=== PATIENT | male | born 1945 | race Caucasian/White ===

== ENCOUNTER 2016-05-29 13:18 | Inpatient (IN) ==
[2016-05-29] MEDS ORDERED: Piperacillin/Tazobactam 3.375 GM in D5% in Water (Mini-Bag+) 100 ML IVPB ONE (13:30)
[2016-05-29] MEDS ORDERED: methylPREDNISolone 125 MG/2 ML VIAL IVP ONE (13:30)
[2016-05-29] MEDS ORDERED: Vancomycin 1,000 MG in D5% in Water 250 ML IVPB ONE (13:32)
[2016-05-29] MEDS: Ipratropium/Albuterol Neb 3 ML IH ONE ×2 (13:40→17:33)
[2016-05-29 13:47] LABS: Hematocrit 41.2 % (37.5-50.1); Hemoglobin 14.5 g/dL (12.9-16.9); Mean Corpuscular HGB Conc 35.2 g/dL (31.6-35.5); Mean Corpuscular Hemoglobin 34.1 pg (28.0-33.3); Mean Corpuscular Volume 96.9 fL (83.0-100.0); Mean Platelet Volume 9.5 fL (9.4-12.4); Platelet Count 148 K/mcL (140-400); Red Blood Count 4.25 M/mcL (4.19-5.50); Red Cell Distribution Width 13.4 % (11.5-14.5)
[2016-05-29 13:55] LABS: Prothrombin Time 11.1 Seconds (9.4-12.1)
[2016-05-29 13:58] LABS: Activated Partial Thrombo Time 23.1 Seconds (26.0-36.0); BUN/Creatinine Ratio 39 (6-26); Blood Urea Nitrogen 48 mg/dL (8-26); Calcium 8.6 mg/dL (8.6-10.8); Carbon Dioxide 28 mEq/L (19-29); Chloride 102 mEq/L (98-109); Glucose 140 mg/dL (70-99); Osmolality,Calculated 305 (280-300); Sodium 140 mEq/L (136-145); eGFR For African Americans > 60 (> 60); eGFR For Non-African Americans 59 (> 60)
[2016-05-29 14:15] LABS: Lymphocytes # 0.8 K/mcL (0.6-4.6); Monocytes # 1.2 K/mcL (0.0-1.3); Neutrophils # 17.9 K/mcL (1.6-8.9); Platelet Estimate Normal (Normal)
--- NOTE | 2016-05-29 14:36 | Emergency Department Note ---
Disposition Clinical Impression: Acute exacerbation of chronic obstructive airways disease, Respiratory decompensation, Respiratory failure Disposition: Admitted As Inpatient Condition: Critical Time of Disposition: 16:39 SOB HPI - General Chief Complaint: ED Shortness of Breath/Dyspnea Stated Complaint: SOB Time Seen by Provider: 05/29/16 13:21 Source: patient, EMS Limitations: no limitations Nursing Notes Reviewed: Yes Vital Signs Reviewed: Yes - History of Present Illness Patient presents emergency room with significant increased work of breathing shortness of breath from his primary care provider's office. Abdomen present for approximately 1 week. He was seen in the office again today after being on steroids and antibiotics. He is apparently failed outpatient treatment. They sent him over for evaluation. No other acute symptoms according to him the shortness of breath is been there for over 7 days Pt Subjective Complaint: shortness of breath Onset (ago): day(s) (7 days) Context: recent illness Severity: severe Consistency/Duration: gradually worsening Improves with: nothing Worsens with: lying flat, exertion Known history of: COPD, recurrent pneumonia Associated symptoms: Reports: cough, wheezing, sputum production Treatment prior to arrival: none Cough present: Yes Cough Description: Voluntary Cough Frequency: Intermittent Sputum production: Yes Sputum Amount: Small Sputum Color: Clear - Related Data Home oxygen amount: 2 liters Home Medications Medication Instructions Recorded Confirmed Albuterol Neb [Proventil Neb] 2.5 mg IH Q6HR 04/13/15 04/13/15 Albuterol Sulfate [Proair 90 mcg IH DAILY 04/13/15 04/13/15 Respiclick] Alendronate Sodium [Fosamax] 35 mg PO QWEEK 04/13/15 04/13/15 Aspirin [Adult Low Dose Aspirin EC] 81 mg PO DAILY 04/13/15 04/13/15 Atorvastatin [Lipitor] 40 mg PO HS 04/13/15 04/13/15 Bumetanide [Bumex] 1 mg PO DAILY 04/13/15 04/13/15 Cinnamon Bark [Cinnamon] 1,000 mg PO DAILY 04/13/15 04/13/15 Clopidogrel [Plavix] 75 mg PO DAILY 04/13/15 04/13/15 Fluticasone/Salmeterol [Advair 1 each IH BID 04/13/15 04/13/15 500-50 Diskus] Garlic 1,000 mg PO BID 04/13/15 04/13/15 Ipratropium [ATROVENT Inhaler] 2 puff IH Q6HR PRN 04/13/15 04/13/15 Loratadine [Claritin] 10 mg PO DAILY 04/13/15 04/13/15 Metoprolol [Lopressor] 50 mg PO BID 04/13/15 04/13/15 Omeprazole [PriLOSEC] 20 mg PO DAILY 04/13/15 04/13/15 Roflumilast [Daliresp] 500 mcg PO DAILY 04/13/15 04/13/15 [place] Oil/[place]-3 Fatty Acids 1 each PO BID 04/13/15 04/13/15 [Fish Oil 500 mg Softgel] Vitamin B Complex [B Complex] 1 each PO DAILY 04/13/15 04/13/15 Vitamin E (Dl,Tocopheryl Acet) 400 unit PO DAILY 04/13/15 04/13/15 [Vitamin E] Previous Rx's Medication Instructions Recorded Cefdinir [Omnicef] 300 mg PO BID #20 capsule 04/21/15 Nystatin SUSP [Mycostatin 5 ml PO QID #120 ud.liq 04/21/15 Suspension] PredniSONE 5 mg PO DAILY #90 tablet 04/21/15 Allergies Allergy/AdvReac Type Severity Reaction Status Date / Time diazoxide AdvReac Rash Verified 10/23/14 11:39 furosemide [From Lasix] AdvReac Rash Verified 10/23/14 11:39 montelukast AdvReac See Verified 10/23/14 11:39 Comments Pneumococcal Vaccine AdvReac Rash Verified 10/23/14 11:39 All systems ED: reviewed and negative except as stated. Cardiovascular: Reports: palpitations, dyspnea on exertion, orthopnea. Denies: chest pain Respiratory: Reports: cough, dyspnea, wheezes, sputum production Gastrointestinal: Denies: abdominal pain Musculoskeletal: Denies: back pain, neck pain, joint swelling Neurological: Denies: headache Past Medical History - Past Medical History Attestation: Yes The following information was validated with the patient. Source: patient Medical history: Reports: COPD, coronary artery disease, GERD, GI bleed, hyperlipidemia, hypertension, myocardial infarction, valvular heart disease Surgical history: Reports: angioplasty/stent, appendectomy, carotid endarterectomy, heart valve replacement Psychiatric history: Reports: anxiety - Social History Smoking Status: Former smoker Smokeless Tobacco Status: No Alcohol use: Reports: heavy, recent Drug use: Reports: none Physical Exam - General Limitations: no limitations General appearance: alert - Head Head exam: atraumatic, normocephalic, normal inspection - Chest Chest inspection: Present: normal inspection, symmetric chest wall rise. Absent : tenderness - Respiratory Respiratory exam: Present: respiratory distress, wheezes, accessory muscle use - Cardiovascular Cardiovascular exam: Present: tachycardia, irregular rhythm - Abdominal Exam Abdominal exam: Present: soft, Non-Tender, normal bowel sounds. Absent: tenderness, distention, guarding, rebound, rigidity, Ahmadi's sign, Rovsing's sign, tenderness at McBurney's Point, mass, pulsatile mass - Extremities Exam Extremities exam: Present: normal inspection, full ROM, normal capillary refill. Absent: tenderness - Back Exam Back exam: Present: normal inspection, full ROM. Absent: tenderness - Neurological Exam Neurological exam: Present: alert, oriented X3, CN II-XII intact - Psychiatric Psychiatric exam: Present: normal affect, normal mood - Skin Skin exam: Present: warm, dry, intact, normal color Course Course Narrative: Patient seen and examined the time of arrival. See history of present illness. Vital signs reviewed patient is persistently tachycardic dyspnea can borderline hypoxic. Patient presents from an outside facility. He has failed outpatient treatment of COPD exacerbation and pneumonia. He just completed a course of Levaquin along with steroids and breathing treatments. Patient was sent in from his primary care provider's office because of tachycardia. Patient presented here acutely short of breath with a heart rate in the 130s. Rhythm appeared to be regular. Immediate breathing treatments and steroids were ordered. Physical exam shows diffuse wheezing bilaterally in the lungs. His increased work of breathing. Heart is consistent with A. fib RVR. Is on a blood thinner from what he describes. Patient will have chest x-ray EKG labs troponin including Cardizem and oxygen applied at this point. Disposition will most likely be admission the hospital. Antibiotics to be held at this time secondary to complete intercourse. She denies any sputum production this point. He is cleared sputum with no acute signs of infectious etiology. Patient is concerning for possible decompensation secondary to his underlying medical issues. We will continue to monitor as workup is completed. - Reevaluation(s) Reevaluation #1: Patient has clear appearing lungs and chest x-ray review labs are within normal limits. Breathing has gotten better with her continuous nebulizer treatment as well as steroids. Patient was resting comfortably in the bed. No need for antibiotics at this point. He is still persistently tachycardic. Cardizem drip is being titrated up further significant role. Most of the tachycardia appears to be secondary to his pulmonary disease. We will continue to monitor admission process is completed. Time: 13:00 Reevaluation #2: Called to the bedside immediately by the nursing staff for acute respiratory distress from this patient. He had increased work of breathing her another 170s and his pulse ox dropped into the mid 80s. Oxygen was titrated upon nasal cannula and he still was not responding. He said he felt like he could not breathe and had difficulty and pain on the left side. I immediately auscultated his lungs bilateral decreased breath sounds and crackles in the left side. Ordered stat chest x-ray and transition the patient over to a nonrebreather mask. Respiratory to come to the bedside start the patient on continuous breathing treatment. Patient's oxygenation responded to the nonrebreather mask and came back up into normal range.. The treatments were started by respiratory. There was concern for possible spontaneous pneumothoraces or mucus plugging. We will see if we can resolve the symptoms without further intervention. Within approximately 10 minutes of starting the breathing treatments patient started to have significant increased work of breathing and pain. His pulse ox dropped again even with the nonrebreather and treatment planning. At that point I determined that the patient needed to be intubated. Respiratory was called to the bedside. We also placed a page out to the ICU attending. Dr. Feldman came down to the emergency room intubating the patient. He is going to do a bedside bronchoscopy once the intubation is completed. Patient's pulse ox is still waxing and waning depending on respite or status. A delayed sequence intubation was completed with 5 mg of Versed being infused initially and then 20 mg of etomidate with 50 mg of walking pneumonia used for paralytic. Intubation note dictated. No complications 1 past tube placed to 24 cm to 7.52 views. Repeat chest x-ray ordered at that time. ICU attending at the bedside and completed a bronchoscopy removing 2 large mucous plugs the left lung. He recommended keeping the patient intubated and sent him to the ICU. Repeat chest x-ray shows stable examination with no pneumothoraces. Tubes in appropriate placement. Patient will be transported to the ICU. No antibiotics were this time since this appears to be a strictly respiratory driven event. No other recommendations from the ICU attending is done in the emergency room. Bedside ultrasound was completed by Dr. broussard evaluating and confirming that there is no synovial signs of ventricle dilation. Concern at this point for pulmonary emboli after confirming the diagnosis of mucous plugging. Patient to be transported to the ICU at this time. Time: 16:37 Vital Signs Temperature 98.4 F 05/29/16 13:20 Pulse Rate 135 05/29/16 13:20 Respiratory Rate 18 05/29/16 13:20 Blood Pressure 130/105 05/29/16 13:20 O2 Sat by Pulse Oximetry 94 L 05/29/16 13:20 Temperature 98.4 F 05/29/16 13:20 Pulse Rate 140 05/29/16 16:22 Respiratory Rate 12 05/29/16 16:22 Blood Pressure 114/88 05/29/16 16:22 O2 Sat by Pulse Oximetry 98 05/29/16 16:22 Oxygen Delivery Oxygen Delivery Ambu Bag Procedures - Intubation Time out performed: No sedative: Etomidate paralytic: Rocuronium Laryngoscope: Dick ET Tube Size: 7.5 ET Tube Uncuffed: No Tube Secured Location: lips Tube Placement Confirmation: visualized tube passing through cords, equal breath sounds bilaterally, no breath sounds over epigastrium Patient Tolerated Procedure: well Intubation Complications: none Shortness of Breath/Dyspnea - MDM Narrative Medical decision making narrative: Acute respiratory distress, COPD exacerbation, mucous plugging, respiratory decompensation. - Lab Data Result diagrams: 05/29/16 13:40 05/29/16 13:40 Lab Results 05/29/16 05/29/16 05/29/16 Range/Units 13:40 13:40 13:40 WBC 19.9 H (4.3-11.1) K/mcL RBC 4.25 (4.19-5.50) M/mcL Hgb 14.5 (12.9-16.9) g/dL Hct 41.2 (37.5-50.1) % MCV 96.9 (83.0-100.0) fL MCH 34.1 H (28.0-33.3) pg MCHC 35.2 (31.6-35.5) g/dL RDW 13.4 (11.5-14.5) % Plt Count 148 (140-400) K/mcL MPV 9.5 (9.4-12.4) fL Seg Neutrophils % 90.0 % Lymphocytes % 4.0 % Monocytes % 6.0 % Neutrophils # 17.9 H (1.6-8.9) K/mcL Lymphocytes # 0.8 (0.6-4.6) K/mcL Monocytes # 1.2 (0.0-1.3) K/mcL Platelet Estimate Normal (Normal) PT 11.1 (9.4-12.1) Seconds INR 1.0 APTT 23.1 L (26.0-36.0) Seconds Sodium 140 (136-145) mEq/L Potassium 4.0 (3.5-4.5) mEq/L Chloride 102 (98-109) mEq/L Carbon Dioxide 28 (19-29) mEq/L BUN 48 H (8-26) mg/dL Creatinine 1.22 (0.72-1.25) mg/dL Est GFR ( Amer) > 60 (> 60) Est GFR (Non-Af Amer) 59 L (> 60) BUN/Creatinine Ratio 39 H (6-26) Glucose 140 H (70-99) mg/dL Calculated Osmolality 305 H (280-300) Lactic Acid (0.5-2.2) mmol/L Calcium 8.6 (8.6-10.8) mg/dL Troponin I (0-0.03) ng/mL B-Natriuretic Peptide (0-100) pg/mL 05/29/16 05/29/16 05/29/16 Range/Units 13:40 13:40 13:40 WBC (4.3-11.1) K/mcL RBC (4.19-5.50) M/mcL Hgb (12.9-16.9) g/dL Hct (37.5-50.1) % MCV (83.0-100.0) fL MCH (28.0-33.3) pg MCHC (31.6-35.5) g/dL RDW (11.5-14.5) % Plt Count (140-400) K/mcL MPV (9.4-12.4) fL Seg Neutrophils % % Lymphocytes % % Monocytes % % Neutrophils # (1.6-8.9) K/mcL Lymphocytes # (0.6-4.6) K/mcL Monocytes # (0.0-1.3) K/mcL Platelet Estimate (Normal) PT (9.4-12.1) Seconds INR APTT (26.0-36.0) Seconds Sodium (136-145) mEq/L Potassium (3.5-4.5) mEq/L Chloride (98-109) mEq/L Carbon Dioxide (19-29) mEq/L BUN (8-26) mg/dL Creatinine (0.72-1.25) mg/dL Est GFR ( Amer) (> 60) Est GFR (Non-Af Amer) (> 60) BUN/Creatinine Ratio (6-26) Glucose (70-99) mg/dL Calculated Osmolality (280-300) Lactic Acid 1.0 (0.5-2.2) mmol/L Calcium (8.6-10.8) mg/dL Troponin I 0.09 H* (0-0.03) ng/mL B-Natriuretic Peptide 886 H (0-100) pg/mL Critical Care Time Critical Care Time: Yes Total Critical Care Time: 45 Attestation: Independent of procedures and medical management Attestation Statement - Attestation Attestation: I examined this patient and my medical decision-making was reviewed with the NETWORK SUPPORT TECHNICIAN/PA/Advanced Practice Nurse/Resident Physician. I agree with the documented findings, disposition and treatment plan as described except to the extent set forth below. Patient to the emergency department with shortness of breath and cough. Patient was sent in from his primary doctor's office when he went for follow-up today. He been treated for a COPD exacerbation with Levaquin. Getting worse and he was sent here for admission. Cough was productive of green sputum but he states is now clear. No fever. On examination he is in no respiratory distress. He has decreased air exchange with expiratory wheezing. He is tachycardic. Plan. Patient's new onset A. fib. Started on Cardizem. steroids. Patient has an infiltrate. IV antibiotic. Will admit. Patient decompensated and became hypoxic. Started after a coughing spell. Becoming cyanotic. Tachypneic. Decreased air exchange on the left. Repeat x- ray unchanged. No pneumothorax. ICU called for emergent bronch. Patient intubated. 1600. ICU at bedside. Bronchoscopy being performed. Patient with large mucous plug on the left. 40 minutes of critical care exclusive of separately billable procedures.
[2016-05-29] MEDS ORDERED: *HR* LORazepam 2 MG/ML VIAL ONE (15:08)
[2016-05-29] MEDS ORDERED: Ipratropium/Albuterol Neb 3 ML IH ONE (15:11)
[2016-05-29] MEDS ORDERED: Ipratropium/Albuterol Neb 3 ML ONE (15:13)
[2016-05-29] MEDS ORDERED: *HR* LORazepam 2 MG/ML VIAL IVP ONE (15:24)
[2016-05-29] MEDS ORDERED: 0.9 % Sodium Chloride 1,000 ML ONE ×2 (15:30→15:51)
[2016-05-29] MEDS ORDERED: Propofol 500 MG/50 ML INFUS..BTL ONE (15:45)
--- NOTE | 2016-05-29 16:20 | Event Note ---
Date of Encounter: 05/29/16 Time of Encounter: 16:15 Called emergently to the ER for evaluation of sudden decompensation with refractory hypoxemia. There was concern for mucous plug. Patient was intubated by the emergency room staff. Shortly after intubation I performed flexible bronchoscopy. Informed consent was implied in the setting of emergent need for the procedure. Bronchoscope was introduced through the endotracheal tube into the airways. Right-sided airways were patent with minimal secretions. Visualization was difficult, as the patient was without positive pressure (off the ventilator). Evaluation of the left-sided airways revealed a left mainstem mucous plug. With sequential lavage and washings, was able to remove a large left sided mucous plugs. After removal of the plugs, I reinspected the airways. I did note some bloody secretions throughout bilateral airways. These secretions were suctioned. There was an area in the left mainstem with adherent clot noted. I did lavage and suction this area, but I was unable to completely remove the clot. Unable to fully visualize as to if this could be a soft tissue lesion such as a tumor. Overall though the airways appeared patent and clear of secretions. The bronchoscope was removed. The patient tolerated the procedure well.
--- NOTE | 2016-05-29 16:27 | Pulmonology History & Physical ---
Date of Encounter: 05/29/16 Time of Encounter: 16:24 Assessment and Plan (1) Respiratory failure Current visit: Yes Status: Acute Patient intubated and sedated with propofol and fentanyl at this time. Bedside bronchial emergency department showed significant mucus plugging. Lavage was performed and mucous plugs were removed. Plan: IV antibiotics of Levaquin and Rocephin. Solu-Medrol 60 mg every 6 for 24 hours. DuoNeb scheduled every 4 hours. When necessary duo nebs every 2 hours. We will continue to monitor patient. Possible repeat bronch after patient is stabilized. Qualifiers: Qualified Code(s): J96.01 - Acute respiratory failure with hypoxia (2) Community acquired pneumonia Current visit: No Status: Acute Plan : Patient on Rocephin and Levaquin. DuoNeb scheduled every 4. Solu-Medrol scheduled 60 mg every 6. (3) COPD exacerbation Current visit: No Status: Acute Plan as above. (4) DVT prophylaxis Current visit: No Status: Acute Heparin twice a day. History of Present Illness HPI: Mr. White is a 71 year old male who presented to the emergency department with shortness of breath over the past couple days. He was on outpatient Omnicef. He does have history of COPD. During his ED course his oxygen saturation decreased and patient began having significant shortness of breath. A bedside broncholiths performed and patient was found to have significant mucus plugging. This was suctioned. Patient is intubated and on a ventilator at this time. Past Med Surg Social Fam HX - Past Medical History Medical history: COPD, coronary artery disease, GERD, GI bleed, hyperlipidemia, hypertension, myocardial infarction, valvular heart disease Psychiatric history: anxiety - Past Surgical History Surgical History: angioplasty/stent, appendectomy, carotid endarterectomy, heart valve replacement - Social History Smoking Status: Former smoker Smokeless Tobacco Status: No Alcohol use: heavy, recent Drug use: none - Family History Mother Family Member Ethnicity: Non- Living Status: Hx Family Cardiac Disorders: No Hx Family Respiratory Disorders: No Hx Family Cancer: Yes Hx Family GI Disorders: No Hx Family Endocrine Disorder: No Hx Family Neuromuscular Disorders: No Hx Family Neurologic Disorders: No Hx Family HEENT Disorders: No Hx Family Autoimmune Disorders: No Medications and Allergies Albuterol Neb [Proventil Neb] 2.5 mg IH Q6HR 04/13/15 [History] Albuterol Sulfate [Proair Respiclick] 90 mcg IH DAILY 04/13/15 [History] Alendronate Sodium [Fosamax] 35 mg PO QWEEK 04/13/15 [History] Aspirin [Adult Low Dose Aspirin EC] 81 mg PO DAILY 04/13/15 [History] Atorvastatin [Lipitor] 40 mg PO HS 04/13/15 [History] Bumetanide [Bumex] 1 mg PO DAILY 04/13/15 [History] Cinnamon Bark [Cinnamon] 1,000 mg PO DAILY 04/13/15 [History] Clopidogrel [Plavix] 75 mg PO DAILY 04/13/15 [History] Fluticasone/Salmeterol [Advair 500-50 Diskus] 1 each IH BID 04/13/15 [History] Garlic 1,000 mg PO BID 04/13/15 [History] Ipratropium [ATROVENT Inhaler] 2 puff IH Q6HR PRN 04/13/15 [History] Loratadine [Claritin] 10 mg PO DAILY 04/13/15 [History] Metoprolol [Lopressor] 50 mg PO BID 04/13/15 [History] Omeprazole [PriLOSEC] 20 mg PO DAILY 04/13/15 [History] Roflumilast [Daliresp] 500 mcg PO DAILY 04/13/15 [History] [place] Oil/[place]-3 Fatty Acids [Fish Oil 500 mg Softgel] 1 each PO BID 04/13/15 [History] Vitamin B Complex [B Complex] 1 each PO DAILY 04/13/15 [History] Vitamin E (Dl,Tocopheryl Acet) [Vitamin E] 400 unit PO DAILY 04/13/15 [History] Cefdinir [Omnicef] 300 mg PO BID #20 capsule 04/21/15 [Rx] Nystatin SUSP [Mycostatin Suspension] 5 ml PO QID #120 ud.liq 04/21/15 [Rx] PredniSONE 5 mg PO DAILY #90 tablet 04/21/15 [Rx] Allergies diazoxide Adverse Reaction (Verified 10/23/14 11:39) Rash furosemide [From Lasix] Adverse Reaction (Verified 10/23/14 11:39) Rash montelukast Adverse Reaction (Verified 10/23/14 11:39) See Comments Pneumococcal Vaccine Adverse Reaction (Verified 10/23/14 11:39) Rash ROS unobtainable: due to endotracheal tube All Systems: A 10-system review of systems was performed and is negative for pertinent findings except as documented above in the HPI. Physical Examination Vital Signs: Vital Signs, Last 4 Hours Pulse Resp BP Pulse Ox 05/29/16 16:22 140 12 114/88 98 General appearance: other (Intubated and sedated.) Eyes: nonicteric ENT: oropharynx moist Neck: supple Effort: other (Assisted) Inspection: normal Auscultation: bilateral: rhonchi Cardiovascular: other (Atrial fibrillation with RVR.) Gastrointestinal: normoactive bowel sounds, soft, non-distended Integumentary: normal Extremities: no cyanosis, pink and warm, pulses normal Musculoskeletal: no deformities unable to assess due to mental status (Patient sedated.) Results - Laboratory Findings CBC and BMP: 05/29/16 13:40 05/29/16 13:40 PT/INR, D-dimer PT 11.1 Seconds (9.4-12.1) 05/29/16 13:40 Abnormal lab findings: Abnormal lab results WBC 19.9 K/mcL (4.3-11.1) H 05/29/16 13:40 MCH 34.1 pg (28.0-33.3) H 05/29/16 13:40 Neutrophils # 17.9 K/mcL (1.6-8.9) H 05/29/16 13:40 APTT 23.1 Seconds (26.0-36.0) L 05/29/16 13:40 BUN 48 mg/dL (8-26) H 05/29/16 13:40 Est GFR (Non-Af Amer) 59 (> 60) L 05/29/16 13:40 BUN/Creatinine Ratio 39 (6-26) H 05/29/16 13:40 Glucose 140 mg/dL (70-99) H 05/29/16 13:40 Calculated Osmolality 305 (280-300) H 05/29/16 13:40 Troponin I 0.09 ng/mL (0-0.03) H* 05/29/16 13:40 B-Natriuretic Peptide 886 pg/mL (0-100) H 05/29/16 13:40
[2016-05-29] MEDS ORDERED: Lacri-Lube 3.5 GM TUBE BOTH EYES PRN (16:32)
[2016-05-29] MEDS ORDERED: Ipratropium/Albuterol Neb 3 ML IH PRN (16:42)
[2016-05-29] MEDS: FentaNYL (PF) 1,000 MCG in 0.9 % Sodium Chloride 80 ML IVC SCH (17:33)
[2016-05-29 17:39] LABS: ABG Base Excess 1.4 mEq/L (-2.0 to 3.0); ABG HCO3 29.3 mEQ/L (21-27); ABG Oxygen Saturation 99 % (95-98); ABG PCO2 61 mmHg (35-45); ABG PH 7.29 pH Units (7.32-7.45); ABG PO2 162 mmHg (85-104); ABG TCO2 31.2 mEq/L (20-26)
[2016-05-29 17:40] LABS: Blood Gas FiO2 50 %
[2016-05-29] MEDS ORDERED: Levofloxacin 750 MG/150 ML 750 MG/150 ML BAG IVPB SCH (18:00)
[2016-05-29] MEDS ORDERED: D5% in Water 1,000 ML IV PRN (18:02)
[2016-05-29] MEDS ORDERED: Dextrose Gel 15 GM PO PRN ×2 (18:02)
[2016-05-29] MEDS ORDERED: *HR* Dextrose 50 % in Water (Syg) 50 ML SYRINGE IVP PRN (18:02)
[2016-05-29] MEDS: methylPREDNISolone 125 MG/2 ML VIAL IVP SCH (18:08)
[2016-05-29] MEDS: *HR* Heparin 5,000 UNIT/ML VIAL SQ SCH (18:10)
[2016-05-29] MEDS ORDERED: Phenylephrine 10 MG in D5% in Water 250 ML IVC SCH (18:45)
[2016-05-29] MEDS: Ipratropium/Albuterol Neb 3 ML IH SCH (20:19)
[2016-05-29] MEDS: Lacri-Lube 3.5 GM TUBE BOTH EYES SCH (20:56)
[2016-05-29] MEDS: Chlorhexidine Rinse 15 ML MOUTHWASH MM SCH (20:56)
[2016-05-29] MEDS ORDERED: *HR* Metoprolol 5 MG/5 ML VIAL IVP PRN (22:26)
[2016-05-30] MEDS: FentaNYL (PF) 1,000 MCG in 0.9 % Sodium Chloride 80 ML IVC SCH (00:04)
[2016-05-30] MEDS: methylPREDNISolone 125 MG/2 ML VIAL IVP SCH ×4 (00:15→17:42)
[2016-05-30] MEDS: Insulin LISPRO 300 UNITS/3 ML VIAL SQ SCH ×4 (00:15→19:37)
[2016-05-30] MEDS: Lacri-Lube 3.5 GM TUBE BOTH EYES SCH ×3 (00:15→09:11)
[2016-05-30] MEDS: Ipratropium/Albuterol Neb 3 ML IH SCH ×6 (00:23→20:49)
[2016-05-30 03:25] LABS: Basophils # 0.1 K/mcL (0.0-0.2); Basophils % 0.3 %; Hematocrit 38.6 % (37.5-50.1); Immature Granulocytes % 4.2 % (0-4); Lymphocytes # 0.4 K/mcL (0.6-4.6); Lymphocytes % 2.3 %; Mean Corpuscular HGB Conc 33.7 g/dL (31.6-35.5); Mean Corpuscular Hemoglobin 33.5 pg (28.0-33.3); Mean Corpuscular Volume 99.5 fL (83.0-100.0); Mean Platelet Volume 9.9 fL (9.4-12.4); Monocytes # 0.8 K/mcL (0.0-1.3); Monocytes % 4.2 %; Neutrophils # 16.3 K/mcL (1.6-8.9); Platelet Count 131 K/mcL (140-400); Red Blood Count 3.88 M/mcL (4.19-5.50); Red Cell Distribution Width 13.7 % (11.5-14.5)
[2016-05-30 03:42] LABS: Calcium 7.4 mg/dL (8.6-10.8); Potassium 4.1 mEq/L (3.5-4.5)
[2016-05-30] MEDS: Famotidine 20 MG/2 ML VIAL IVP SCH (05:11)
[2016-05-30] MEDS: *HR* Heparin 5,000 UNIT/ML VIAL SQ SCH ×2 (05:15→17:42)
[2016-05-30] MEDS ORDERED: *HR* Midazolam HCl 2 MG/2 ML VIAL IV ONE (07:49)
[2016-05-30] MEDS ORDERED: *HR* Rocuronium Bromide 50 MG/5 ML VIAL IVC ONE (07:49)
[2016-05-30] MEDS ORDERED: *HR* Etomidate 40 MG/20 ML VIAL IVP ONE (07:49)
[2016-05-30] MEDS ORDERED: *HR* Midazolam HCl 5 MG/5 ML VIAL IVP ONE (07:49)
[2016-05-30] MEDS: Aspirin Enteric Coated 81 MG Tablet PO SCH ×2 (09:11→14:09)
[2016-05-30] MEDS: Chlorhexidine Rinse 15 ML MOUTHWASH MM SCH (09:55)
[2016-05-30 10:06] LABS: 2009 H1N1 PCR NOT DETECTED (Not Detect); Influenza A PCR Negative (Negative); Influenza B PCR Negative (Negative)
--- NOTE | 2016-05-30 10:13 | Pulmonology Progress Note ---
Date of Encounter: 05/30/16 Time of Encounter: 10:11 Assessment and Plan (1) Acute respiratory failure with hypoxia Current Visit: Yes Status: Acute Multifactorial and due to COPD with acute exacerbation and left-sided mucous plugging. Patient's chest x-ray appears clear this morning without mucous plugging. He is passing a spontaneous breathing trial. Plan for extubation. (2) COPD with acute exacerbation Current Visit: Yes Status: Acute Continue intravenous steroids and scheduled + prn bronchodilators. Will transition to prednisone 40 mg by mouth daily with 2 week taper on 05/31/2016. (3) Atelectasis Current Visit: Yes Status: Acute Emergent bronchoscopy performed in the emergency department 05/29/2016, which revealed left-sided mucous plugging. The plugs were removed. The underlying mucosa revealed oozing blood and adherent clot. It was difficult to rule out an endobronchial lesion due to poor visualization. We continued to suction blood from the endotracheal tube overnight. No mucous plugging noted on an x- ray 05/30/2016. Ultimately, I will plan on CT scan of the chest for further evaluation. Otherwise, the patient may need a repeat bronchoscopy in the future for airway inspection after he stabilizes. (4) Atrial fibrillation with RVR Current Visit: Yes Status: Acute He developed atrial fibrillation with rapid ventricular response in the emergency department. After extubation, we can further discuss with the patient appears ever had a history of A. fib. He is currently on a diltiazem drip for rate control. We have added back his by mouth metoprolol to assist with rate control and in an attempt to wean off the diltiazem drip. Holding anticoagulation in light of bloody secretions suctioning out of endotracheal tube. Continue aspirin. (5) History of tobacco use Current Visit: Yes Status: Acute Subjective Principal diagnosis: Acute respiratory failure Interval history: No acute overnight events. They did continue to suction blood out of the endotracheal tube overnight. Patient has done well on a spontaneous breathing trial this morning. Unable to obtain review of systems secondary to endotracheal tube. Objective PUL Vital signs: Last Vital Signs Temp 97.8 F 05/30/16 08:08 Pulse 122 05/30/16 08:30 Resp 14 05/30/16 09:43 BP 143/105 05/30/16 08:09 Pulse Ox 97 05/30/16 09:43 General: Frail appearing, intubated but awake and interactive Eyes: nonicteric ENT: #7.[address] Neck: supple, no lymphadenopathy Lungs: Coarse bilateral breath sounds Cardiovascular: Irregularly irregular, no murmurs noted Gastrointestinal: normoactive bowel sounds, soft, non-tender, non-distended Integumentary: normal Extremities: no cyanosis, no edema Musculoskeletal: no deformities Neuro: Interactive with caregivers, follows commands, moves extremities 4 Psych: Deferred exam Ventilator Settings Ventilator Settings: Ventilator Settings, Last 8 Hours Ventilator Mode CPAP Ventilator Mode CPAP Ventilator Mode CPAP Ventilator Mode CPAP Ventilator Mode VC+ Ventilator Mode VC+ Ventilator Mode VC+ Ventilator Mode VC+ Ventilator Mode VC+ Ventilator Tidal Volume 550 Setting Ventilator Tidal Volume 550 Setting Ventilator Tidal Volume 550 Setting Ventilator Tidal Volume 550 Setting Ventilator Tidal Volume 550 Setting Ventilator Respiratory Rate 13 Setting Ventilator Respiratory Rate 13 Setting Ventilator Respiratory Rate 14 Setting Ventilator Respiratory Rate 14 Setting Ventilator Respiratory Rate 14 Setting Ventilator Respiratory Rate 14 Setting Ventilator Respiratory Rate 14 Setting Actual Respiratory Rate 15 Actual Respiratory Rate 15 Actual Respiratory Rate 15 Actual Respiratory Rate 14 Actual Respiratory Rate 14 Actual Respiratory Rate 15 Actual Respiratory Rate 16 Actual Respiratory Rate 16 Positive End Expiratory 5 Pressure Positive End Expiratory 5 Pressure Positive End Expiratory 5 Pressure Positive End Expiratory 5 Pressure Positive End Expiratory 5 Pressure Positive End Expiratory 5 Pressure Positive End Expiratory 5 Pressure Positive End Expiratory 5 Pressure Positive End Expiratory 5 Pressure Peak Inspiratory Airway 11 Pressure Peak Inspiratory Airway 11 Pressure Peak Inspiratory Airway 16 Pressure Peak Inspiratory Airway 16 Pressure Peak Inspiratory Airway 24 Pressure Peak Inspiratory Airway 27 Pressure Peak Inspiratory Airway 26 Pressure Peak Inspiratory Airway 21 Pressure Peak Inspiratory Airway 21 Pressure Results - Laboratory Findings CBC and BMP: 05/30/16 03:00 05/30/16 03:00 ABG ABG pH 7.29 pH Units (7.32-7.45) L 05/29/16 17:30 ABG pCO2 61 mmHg (35-45) H 05/29/16 17:30 ABG pO2 162 mmHg (85-104) H 05/29/16 17:30 ABG O2 Saturation 99 % (95-98) H 05/29/16 17:30 PT/INR, D-dimer PT 11.1 Seconds (9.4-12.1) 05/29/16 13:40 Abnormal lab findings: Abnormal lab results WBC 18.3 K/mcL (4.3-11.1) H 05/30/16 03:00 RBC 3.88 M/mcL (4.19-5.50) L 05/30/16 03:00 MCH 33.5 pg (28.0-33.3) H 05/30/16 03:00 Plt Count 131 K/mcL (140-400) L 05/30/16 03:00 Immature Gran % 4.2 % (0-4) H 05/30/16 03:00 Neutrophils # 16.3 K/mcL (1.6-8.9) H 05/30/16 03:00 Lymphocytes # 0.4 K/mcL (0.6-4.6) L 05/30/16 03:00 APTT 23.1 Seconds (26.0-36.0) L 05/29/16 13:40 ABG pH 7.29 pH Units (7.32-7.45) L 05/29/16 17:30 ABG pCO2 61 mmHg (35-45) H 05/29/16 17:30 ABG pO2 162 mmHg (85-104) H 05/29/16 17:30 ABG HCO3 29.3 mEQ/L (21-27) H 05/29/16 17:30 ABG Total CO2 31.2 mEq/L (20-26) H 05/29/16 17:30 ABG O2 Saturation 99 % (95-98) H 05/29/16 17:30 BUN 62 mg/dL (8-26) H D 05/30/16 03:00 Creatinine 1.82 mg/dL (0.72-1.25) H 05/30/16 03:00 Est GFR ( Amer) 45 (> 60) L 05/30/16 03:00 Est GFR (Non-Af Amer) 37 (> 60) L 05/30/16 03:00 BUN/Creatinine Ratio 34 (6-26) H 05/30/16 03:00 Glucose 143 mg/dL (70-99) H 05/30/16 03:00 POC Glucose 166 (58-89) H 05/30/16 00:08 Calculated Osmolality 310 (280-300) H 05/30/16 03:00 Calcium 7.4 mg/dL (8.6-10.8) L 05/30/16 03:00 Troponin I 0.17 ng/mL (0-0.03) H* 05/30/16 08:30 B-Natriuretic Peptide 886 pg/mL (0-100) H 05/29/16 13:40 - Microbiology Findings Microbiology Findings: Microbiology, Last 48 Hours 05/29/16 18:20 Legionella Antigen - Final Urine,[place] Streptococcus pneumoniae Antigen (M - Final - Clinical Findings Intake & Output: Intake & Output 05/29/16 05/30/16 05/30/16 23:59 07:59 15:59 Intake Total 204 / 206 221 / 221 0 / 0 Output Total 200 / 200 Balance 204 / 206 221 / 221 -200 / -200 Consult Discharge Plan - Plan Referrals: Saud Potter MD [Primary Care Provider] -
[2016-05-31] MEDS: Insulin LISPRO 300 UNITS/3 ML VIAL SQ SCH ×4 (00:12→21:04)
[2016-05-31 04:06] LABS: Basophils % 0.2 %; Hematocrit 36.8 % (37.5-50.1); Hemoglobin 12.6 g/dL (12.9-16.9); Immature Granulocytes % 3.3 % (0-4); Lymphocytes # 0.4 K/mcL (0.6-4.6); Mean Corpuscular HGB Conc 34.2 g/dL (31.6-35.5); Mean Corpuscular Hemoglobin 34.1 pg (28.0-33.3); Mean Corpuscular Volume 99.5 fL (83.0-100.0); Mean Platelet Volume 9.9 fL (9.4-12.4); Monocytes % 5.2 %; Neutrophils # 16.7 K/mcL (1.6-8.9); Platelet Count 117 K/mcL (140-400); Red Cell Distribution Width 13.2 % (11.5-14.5); Segmented Neutrophils % 89.3 %
[2016-05-31 04:19] LABS: Calcium 6.8 mg/dL (8.6-10.8); Potassium 4.4 mEq/L (3.5-4.5)
[2016-05-31] MEDS: Famotidine 20 MG/2 ML VIAL IVP SCH (05:56)
[2016-05-31] MEDS: *HR* Heparin 5,000 UNIT/ML VIAL SQ SCH ×2 (05:56→19:41)
[2016-05-31] MEDS: Ipratropium/Albuterol Neb 3 ML IH SCH ×4 (08:17→20:31)
[2016-05-31] MEDS: Aspirin Enteric Coated 81 MG Tablet PO SCH (08:39)
[2016-05-31] MEDS ORDERED: predniSONE 20 MG TABLET PO SCH (09:00)
--- NOTE | 2016-05-31 09:57 | Pulmonology Progress Note ---
Date of Encounter: 05/31/16 Time of Encounter: 09:55 Assessment and Plan (1) Acute respiratory failure with hypoxia Current Visit: Yes Status: Acute Multifactorial and due to COPD with acute exacerbation and left-sided mucous plugging. He was intubated on 05/29/2016, and he was subsequently extubated . Respiratory status appears stable on oxygen via nasal cannula. (2) COPD with acute exacerbation Current Visit: Yes Status: Acute Continue steroids and scheduled + prn bronchodilators. Patient transitioned to prednisone 40 mg by mouth daily with 2 week taper on 05/31/2016. (3) Atelectasis Current Visit: Yes Status: Acute Emergent bronchoscopy performed in the emergency department 05/29/2016, which revealed left-sided mucous plugging. The plugs were removed. The underlying mucosa revealed oozing blood and adherent clot. It was difficult to rule out an endobronchial lesion due to poor visualization. Ultimately, I recommend a CT scan of the chest for further evaluation. Otherwise, the patient may need a repeat bronchoscopy in the future for airway inspection after he stabilizes. (4) Atrial fibrillation with RVR Current Visit: Yes Status: Acute He developed atrial fibrillation with rapid ventricular response in the emergency department. He reports a history of difficult to control A. fib. He has intermittently required a diltiazem drip for rate control. We have added back his by mouth metoprolol to assist with rate control and in an attempt to wean off the diltiazem drip. Holding anticoagulation in light of bloody secretions suctioning and ongoing hemoptysis. (5) History of tobacco use Current Visit: Yes Status: Acute Okay to transfer out of ICU setting Subjective Principal diagnosis: Acute respiratory failure Interval history: No acute overnight events. The patient was extubated 05/30/2016. He does report coughing up some blood this morning. The blood was old and dark and did not look fresh. No fever/chills. He states his dyspnea significantly improved compared to his presentation in the emergency room. All other systems reviewed and otherwise negative. Objective PUL Vital signs: Last Vital Signs Temp 97.6 F 05/31/16 09:23 Pulse 128 05/31/16 08:30 Resp 25 05/31/16 08:30 BP 126/85 05/31/16 08:30 Pulse Ox 98 05/31/16 08:30 General: no acute distress Eyes: nonicteric ENT: oropharynx moist Neck: supple, no lymphadenopathy Lungs: Bilateral expiratory wheezes noted Cardiovascular: regular rate and rhythm Gastrointestinal: normoactive bowel sounds, soft, non-tender, non-distended Integumentary: normal Extremities: no cyanosis, no edema Musculoskeletal: no deformities Neuro: normal mental status, non-focal exam Psych: mood appropriate, affect normal Results - Laboratory Findings CBC and BMP: 05/31/16 03:50 05/31/16 03:50 ABG ABG pH TNP 05/31/16 03:59 ABG pCO2 TNP 05/31/16 03:59 ABG pO2 TNP 05/31/16 03:59 ABG O2 Saturation TNP 05/31/16 03:59 PT/INR, D-dimer PT 11.1 Seconds (9.4-12.1) 05/29/16 13:40 Abnormal lab findings: Abnormal lab results WBC 18.7 K/mcL (4.3-11.1) H 05/31/16 03:50 RBC 3.70 M/mcL (4.19-5.50) L 05/31/16 03:50 Hgb 12.6 g/dL (12.9-16.9) L 05/31/16 03:50 Hct 36.8 % (37.5-50.1) L 05/31/16 03:50 MCH 34.1 pg (28.0-33.3) H 05/31/16 03:50 Plt Count 117 K/mcL (140-400) L 05/31/16 03:50 Neutrophils # 16.7 K/mcL (1.6-8.9) H 05/31/16 03:50 Lymphocytes # 0.4 K/mcL (0.6-4.6) L 05/31/16 03:50 APTT 23.1 Seconds (26.0-36.0) L 05/29/16 13:40 BUN 69 mg/dL (8-26) H 05/31/16 03:50 Creatinine 1.55 mg/dL (0.72-1.25) H 05/31/16 03:50 Est GFR ( Amer) 54 (> 60) L 05/31/16 03:50 Est GFR (Non-Af Amer) 44 (> 60) L 05/31/16 03:50 BUN/Creatinine Ratio 45 (6-26) H 05/31/16 03:50 Glucose 58 mg/dL (70-99) L 05/31/16 03:50 POC Glucose 263 (58-89) H 05/31/16 00:09 Calculated Osmolality 306 (280-300) H 05/31/16 03:50 Calcium 6.8 mg/dL (8.6-10.8) L 05/31/16 03:50 Troponin I 0.17 ng/mL (0-0.03) H* 05/30/16 08:30 B-Natriuretic Peptide 886 pg/mL (0-100) H 05/29/16 13:40 - Clinical Findings Intake & Output: Intake & Output 05/30/16 05/31/16 05/31/16 23:59 07:59 15:59 Intake Total 100 / 130 720 / 720 Output Total 250 / 250 850 / 850 300 / 300 Balance -150 / -120 -130 / -130 -300 / -300 Consult Discharge Plan - Plan Referrals: Saud Potter MD [Primary Care Provider] -
[2016-05-31] MEDS ORDERED: *HR* Metoprolol 5 MG/5 ML VIAL IVP PRN (10:15)
--- NOTE | 2016-05-31 12:32 | Electrocardiograph Report ---
[place] [id number] Test Date: 2016-05-29 Pat Name: Izaiah White Department: 104 Room: [facility] Gender: M Lean Sensei: : 1945 Requested By: Roseanna See Order Number: [id number] Reading MD: Sudha Benton Measurements Intervals [place] Rate: 131 P: SC: 0 QRS: 42 QRSD: 94 T: 91 QT: 295 QTc: 372 Interpretive Statements ATRIAL FIBRILLATION WITH RAPID VENTRICULAR RESPONSE VOLTAGE CRITERIA FOR LVH NONSPECIFIC ST \T\ T-WAVE ABNORMALITY Electronically Signed On 05-31-2016 12:30:31 EDT by Sudha Benton
[2016-05-31] MEDS ORDERED: Dextrose Gel 15 GM PO PRN ×2 (17:59)
[2016-05-31] MEDS ORDERED: D5% in Water 1,000 ML IV PRN (17:59)
[2016-05-31] MEDS ORDERED: *HR* Dextrose 50 % in Water (Syg) 50 ML SYRINGE IVP PRN (17:59)
[2016-05-31] MEDS ORDERED: *HR* Metoprolol 5 MG/5 ML VIAL IVP ONE (19:21)
[2016-05-31] MEDS: Levofloxacin 750 MG/150 ML 750 MG/150 ML BAG IVPB SCH (19:40)
[2016-05-31 19:55] LABS: Calcium 7.4 mg/dL (8.6-10.8); Potassium 3.9 mEq/L (3.5-4.5)
[2016-06-01] MEDS: Ipratropium/Albuterol Neb 3 ML IH SCH ×6 (00:26→20:10)
[2016-06-01] MEDS: Insulin LISPRO 300 UNITS/3 ML VIAL SQ SCH ×5 (05:35→21:20)
[2016-06-01] MEDS: *HR* Heparin 5,000 UNIT/ML VIAL SQ SCH ×2 (05:35→21:25)
[2016-06-01] MEDS ORDERED: predniSONE 20 MG TABLET PO SCH (09:00)
[2016-06-01] MEDS: *HR* Metoprolol 5 MG/5 ML VIAL IVP PRN (09:08)
--- NOTE | 2016-06-01 09:32 | Internal Med Progress Note ---
Date of Encounter: 06/01/16 Time of Encounter: 09:30 - Assessment and plan (1) Acute on chronic respiratory failure with hypoxia Current Visit: No Status: Resolved Assessment and plan: Acute on chronic respiratory failure secondary to acute COPD exacerbation from possible acute bronchitis viral versus bacterial, possible community-acquired pneumonia as his chest x-ray shows a right pleural effusion/opacity The patient had a bronchoscopy that showed mucus plugging Stop prednisone and restart Solu-Medrol IV Rocephin was discontinued in the ICU and the patient was started on Levaquin day 2 Continue oxygen therapy (2) Atrial fibrillation with RVR Current Visit: Yes Status: Acute Assessment and plan: Atrial fibrillation with RVR Continue metoprolol, patient's Cardizem drip was discontinued in the emergency room May need to be restarted if heart rate not properly controlled Consider consulting cardiology if heart rate is still elevated after controlling his COPD properly (3) Acute kidney injury Current Visit: No Status: Resolved Assessment and plan: Improving Restart Bumex (4) Elevated troponin Current Visit: No Status: Acute Assessment and plan: Likely secondary to demand ischemia (5) COPD exacerbation Current Visit: No Status: Acute (6) History of aortic valve replacement with bioprosthetic valve Current Visit: No Status: Chronic (7) Hypertension Current Visit: No Status: Chronic Assessment and plan: Stable Qualifiers: Hypertension type: essential hypertension Qualified Code(s): I10 - Essential (primary) hypertension (8) History of tobacco use Current Visit: Yes Status: Acute Assessment and plan: Quit smoking - Time Spent With Patient Greater than 35 minutes - Subjective Interval history: Feeling very short of breath, heart rate ranging from the low 100s to up to 140s and 160s at times, bringing up phlegm still. Denies any chest pain, no fevers, no abdominal pain, no dysuria. - Constitutional Vitals: Temp Pulse Resp BP Pulse Ox 97.1 F L 138 18 137/98 98 06/01/16 07:55 06/01/16 07:55 06/01/16 07:55 06/01/16 07:55 06/01/16 07:55 General appearance: Present: A&O X 3 - Head Head exam: Present: atraumatic, normocephalic - Eye Eye exam: Present: PERRL, conjuntiva pink, sclera anicteric Pupils: Present: PERRL - Neck Neck exam general surgery: Present: supple, trachea midline. Absent: lymphadenopathy - Respiratory Respiratory exam: Present: CTAB, wheezes (Diffuse crackles and wheezing). Absent: accessory muscle use, rales, rhonchi - Cardiovascular Cardiovascular exam: Present: RRR, +S1, +S2, tachycardia. Absent: diastolic murmur, gallop, rubs, systolic murmur - GI/Abdominal GI/Abdominal exam: Present: normal bowel sounds, soft, no peritoneal signs. Absent: distended, tenderness - Extremities Exam Extremities exam: Present: pedal edema (+ 1 pitting edema in both lower extremities), warm, radial pulses palpable and symetrical. Absent: calf tenderness, cyanotic - Neurological Exam Neurological exam: Present: CN II-XII intact, oriented X3, no focal deficits. Absent: pronater drift, facial droop, speech deficit - Skin Skin exam: Present: dry, intact Internal Medicine: Result - Labs CBC & Chem 7: 05/31/16 03:50 05/31/16 19:33 Labs: BMP 05/31/16 19:33 Sodium 140 Potassium 3.9 Chloride 103 Carbon Dioxide 25 BUN 74 H Creatinine 1.48 H Glucose 143 H Calcium 7.4 L - ABG Interpretation ABG results: ABG ABG pH TNP 05/31/16 03:59 ABG pCO2 TNP 05/31/16 03:59 ABG pO2 TNP 05/31/16 03:59 ABG O2 Saturation TNP 05/31/16 03:59 PT/INR, D-dimer PT 11.1 Seconds (9.4-12.1) 05/29/16 13:40 Consult Discharge Plan - Plan Referrals: Saud Potter MD [Primary Care Provider] -
[2016-06-01] MEDS: Aspirin Enteric Coated 81 MG Tablet PO SCH (10:06)
[2016-06-01] MEDS: methylPREDNISolone 125 MG/2 ML VIAL IV SCH ×2 (10:14→17:14)
[2016-06-01] MEDS: Bumetanide 1 MG TABLET PO SCH ×2 (10:14→21:20)
[2016-06-01] MEDS: Ipratropium/Albuterol Neb 3 ML IH PRN (17:18)
[2016-06-01] MEDS: Chloraseptic Spray 177 ML BOTTLE MM PRN (18:13)
[2016-06-02] MEDS: Ipratropium/Albuterol Neb 3 ML IH SCH ×7 (00:29→23:17)
[2016-06-02] MEDS: methylPREDNISolone 125 MG/2 ML VIAL IV SCH ×4 (00:39→23:46)
[2016-06-02] MEDS: Chloraseptic Spray 177 ML BOTTLE MM PRN ×4 (00:46→23:47)
[2016-06-02 05:58] LABS: Hematocrit 43.1 % (37.5-50.1); Hemoglobin 14.3 g/dL (12.9-16.9); Mean Corpuscular HGB Conc 33.2 g/dL (31.6-35.5); Mean Corpuscular Hemoglobin 33.2 pg (28.0-33.3); Mean Platelet Volume 9.8 fL (9.4-12.4); Platelet Count 140 K/mcL (140-400); Red Blood Count 4.31 M/mcL (4.19-5.50); Red Cell Distribution Width 13.2 % (11.5-14.5)
[2016-06-02] MEDS: *HR* Metoprolol 5 MG/5 ML VIAL IVP PRN ×2 (06:03→09:12)
[2016-06-02] MEDS: *HR* Heparin 5,000 UNIT/ML VIAL SQ SCH ×2 (06:04→18:29)
[2016-06-02 06:17] LABS: Calcium 7.5 mg/dL (8.6-10.8)
[2016-06-02 06:36] LABS: Potassium 4.8 mEq/L (3.5-4.5)
[2016-06-02] MEDS: Bumetanide 1 MG TABLET PO SCH ×2 (09:08→19:53)
[2016-06-02] MEDS: Aspirin Enteric Coated 81 MG Tablet PO SCH (09:09)
[2016-06-02] MEDS: Insulin LISPRO 300 UNITS/3 ML VIAL SQ SCH ×4 (09:10→21:40)
--- NOTE | 2016-06-02 09:57 | ECHO - Doppler Report ---
Echocardiogram Name: Izaiah White Date of Study: 06/01/2016 Date: 1945 Ht: 66.0 in Medical Record#: [id number] Age: 71 Wt: 215.0 lb Gender: Male BSA: 2.06 Order #: [id number] Location: [facility] Room #: [id number] Reading Physician: Sudha Benton DO End User Consultant: Elisha Luque Ordering Physician: Conner Woody MD Primary Physician: Saud Potter MD Indications: Congestive heart failure Impressions: Moderately reduced LVEF that could not be well quantified secondary to tachycardia (AFIB with RVR). RV size is normal. Function could not be well evaluated. Severely enlarged left atrial size. Aortic prosthesis was not well visualized or evaluated. MG ranges from 13 to 20 mmHg while tachycardic. Degree of regurgitation could also not be well visualized. Left Ventricular Wall Motion: Rest Echo Findings The apex, apical inferior, mid inferior, basal inferior, apical anterior, mid anterior, basal anterior, apical lateral, mid anterior lateral, basal anterior lateral, mid inferior lateral and basal inferior lateral polo were hypokinetic. The apical septal, mid inferior septal, basal inferior septal, mid anterior septal and basal anterior septal polo were dyskinetic. Findings: ECG Findings * Atrial fibrillation. Left Ventricle * Indeterminate diastolic function. * Atypical septal motion. * Moderately reduced LVEF. * Normal LV size. Mitral Valve * Normal mitral valve structure. * No mitral stenosis. * Trace mitral regurgitation. Aortic Valve * No aortic regurgitation. * Prosthetic aortic valve not well visualized. MG 13-20 mmHg. * Turbulent color flow. Unable to adequately evaluated for regurgitation. Aorta * Not well visualized. Tricuspid Valve * Tricuspid valve not well visualized. * Trace tricuspid regurgitation. * Estimated RA pressure is 3 mmHg. * Estimated RVSP is 33 mmHg. * No pulmonary hypertension. Pulmonic Valve * Pulmonic valve is not well visualized. * No pulmonic stenosis. * No pulmonic regurgitation. Pulmonary Artery * Pulmonary artery not well visualized. Right Ventricle * RV is normal. Function visually appears reduced. Lat S Rambo is normal. Right Atrium * Normal right atrial size. Left Atrium * Severely dilated left atrium. Study Quality * Technically sub-optimal due to clinical status. AFIB with RVR Interatrial Septum * No evidence of PFO by color Doppler. IVC * Normal IVC dimensions and inspiratory collapse. Pericardium * There is no pericardial effusion present. History Hypertension Hypercholesteremia Years 55 Packs 2 History of CAD/PTCA Myocardial Infarction Congestive Heart Failure Valvular Disease Valve Replacement AV Prosthesis Biologic 04/15/2015 a Previous Echo was performed. Measurements: BP: 140/ 84 2D Normal Values IVSd: 1.20 cm 0.6 - 1.0 cm LVIDd: 4.70 cm 3.7 - 5.6 cm LVPWd: 1.20 cm 0.6 - 1.1 cm LVIDs: 3.50 cm 1.5 - 3.6 cm AO: 2.80 cm < 4.0 cm LA: 5.80 cm 2.0 - 4.0cm %FS: 16.30 cm >25 % LVOT Diam: 1.90 cm LA volume: 97 Mitral Valve Peak E:1.30 m/sec Peak E' Lat Rambo:10.4 cm/s Peak E' Med Rambo:8.09 cm/s E/E' Lat Ratio:12.5 E/E' Med Ratio:16.1 LVOT Peak Rambo:1.21 m/sec Mean Rambo:.73 m/sec Peak Grad:6.00 mmHg Mean Grad:3.00 mmHg Aortic Valve Peak Rambo:3.57 m/sec Mean Rambo:2.06 m/sec Peak Grad:51.00 mmHg Mean Grad:22.00 mmHg Valve Area:1.01 cm2 Tricuspid Valve TV Regurg Peak Grad: 30.00mmHg TV Regurg Peak Rambo: 2.76m/sec Updated by Sudha Benton on 06/02/2016 9:50:33 AM electronically signed on 06/02/2016 9:51:36 AM with status of Final Wall Motion An: 1=Normal, 2=Hypokinesis, 3=Akinesis, 4=Dyskinesis, 5=Aneurysmal, 6=Hyperkinetic, X=Not Visualized (Blank)=Missing
[2016-06-02] MEDS: Levofloxacin 750 MG/150 ML 750 MG/150 ML BAG IVPB SCH (18:29)
--- NOTE | 2016-06-02 20:01 | Internal Med Progress Note ---
Date of Encounter: 06/02/16 Time of Encounter: 15:00 - Assessment and plan (1) Acute kidney injury Current Visit: No Status: Resolved Assessment and plan: Monitor BUN and creatinine. Avoid nephrotoxins. Continue Bumex (2) COPD exacerbation Current Visit: No Status: Acute Assessment and plan: IV steroids, inhaled bronchodilators. IV antibiotics. Oxygen by nasal cannula. Smoking cessation counseling given. (3) Hypertension Current Visit: No Status: Chronic Assessment and plan: Stable Qualifiers: Hypertension type: essential hypertension Qualified Code(s): I10 - Essential (primary) hypertension (4) DVT prophylaxis Current Visit: No Status: Acute Assessment and plan: Heparin subcutaneous (5) Acute respiratory failure with hypoxia Current Visit: Yes Status: Acute (6) Atrial fibrillation with RVR Current Visit: Yes Status: Acute Assessment and plan: Atrial fibrillation with RVR Continue metoprolol, patient's Cardizem drip was discontinued in the emergency room May need to be restarted if heart rate not properly controlled Consider consulting cardiology if heart rate is still elevated after controlling his COPD properly - Subjective Interval history: Shortness of breath has improved over the last 24 hours. He reports associated dry cough, no chest pain or fever. Denies nausea vomiting diarrhea depression and anxiety and seizures. - Constitutional Vitals: Temp Pulse Resp BP Pulse Ox 97.9 F 120 18 131/90 97 06/02/16 16:31 06/02/16 16:31 06/02/16 16:42 06/02/16 16:31 06/02/16 16:42 General appearance: Present: A&O X 3 - Eye Eye exam: Present: PERRL, conjuntiva pink, sclera anicteric Pupils: Present: PERRL - Respiratory Respiratory exam: Present: wheezes. Absent: accessory muscle use, rales, rhonchi - Cardiovascular Cardiovascular exam: Present: RRR, +S1, +S2. Absent: diastolic murmur, gallop, rubs, systolic murmur - GI/Abdominal GI/Abdominal exam: Present: normal bowel sounds, soft, no peritoneal signs. Absent: distended, tenderness - Extremities Exam Extremities exam: Present: warm, radial pulses palpable and symetrical. Absent : calf tenderness, cyanotic, pedal edema - Skin Skin exam: Present: dry, intact Internal Medicine: Result - Labs CBC & Chem 7: 06/02/16 04:38 06/02/16 04:38 Labs: Short CBC 06/02/16 Range/Units 04:38 WBC 19.2 H (4.3-11.1) K/mcL Hgb 14.3 D (12.9-16.9) g/dL Hct 43.1 (37.5-50.1) % Plt Count 140 (140-400) K/mcL BMP 06/02/16 04:38 Sodium 141 Potassium 4.8 H Chloride 105 Carbon Dioxide 21 BUN 72 H Creatinine 1.43 H Glucose 150 H Calcium 7.5 L - ABG Interpretation ABG results: ABG ABG pH TNP 05/31/16 03:59 ABG pCO2 TNP 05/31/16 03:59 ABG pO2 TNP 05/31/16 03:59 ABG O2 Saturation TNP 05/31/16 03:59 PT/INR, D-dimer PT 11.1 Seconds (9.4-12.1) 05/29/16 13:40 Consult Discharge Plan - Plan Referrals: Saud Potter MD [Primary Care Provider] -
--- NOTE | 2016-06-02 20:17 | Event Note ---
Date of Encounter: 06/02/16 Time of Encounter: 20:15 I was paged by the nurse to evaluate this 71-year-old gentleman. The patient has been tachycardic. Current heart rate is 152. Blood pressure 125/91. Urine output is 900 mL in the last 12 hours. Patient seen and examined, EMR reviewed. At this point we will start Cardizem drip. Management as per primary team. Continue monitoring closely.
[2016-06-02] MEDS: Menthol 9.1 MG LOZENGE PO PRN (21:44)
[2016-06-02] MEDS ORDERED: 0.9 % Sodium Chloride 1,000 ML ONE (22:10)
[2016-06-03] MEDS: Ipratropium/Albuterol Neb 3 ML IH SCH ×5 (04:09→23:59)
[2016-06-03 05:20] LABS: Basophils # 0.1 K/mcL (0.0-0.2); Basophils % 0.6 %; Hematocrit 40.9 % (37.5-50.1); Immature Granulocytes % 4.4 % (0-4); Lymphocytes # 0.3 K/mcL (0.6-4.6); Lymphocytes % 1.5 %; Mean Corpuscular HGB Conc 34.2 g/dL (31.6-35.5); Mean Corpuscular Hemoglobin 34.2 pg (28.0-33.3); Mean Platelet Volume 9.8 fL (9.4-12.4); Monocytes # 0.9 K/mcL (0.0-1.3); Monocytes % 4.4 %; Neutrophils # 17.7 K/mcL (1.6-8.9); Platelet Count 117 K/mcL (140-400); Red Blood Count 4.09 M/mcL (4.19-5.50); Red Cell Distribution Width 13.2 % (11.5-14.5); Segmented Neutrophils % 89.1 %
[2016-06-03] MEDS: *HR* Heparin 5,000 UNIT/ML VIAL SQ SCH ×2 (05:30→17:48)
[2016-06-03 05:36] LABS: BUN/Creatinine Ratio 63 (6-26); Blood Urea Nitrogen 83 mg/dL (8-26); Calcium 7.7 mg/dL (8.6-10.8); Carbon Dioxide 25 mEq/L (19-29); Chloride 103 mEq/L (98-109); Glucose 130 mg/dL (70-99); Magnesium 2.4 mg/dL (1.6-2.6); Osmolality,Calculated 315 (280-300); Potassium 4.2 mEq/L (3.5-4.5); Sodium 139 mEq/L (136-145); eGFR For African Americans > 60 (> 60); eGFR For Non-African Americans 53 (> 60)
[2016-06-03] MEDS: Menthol 9.1 MG LOZENGE PO PRN ×3 (05:37→22:12)
[2016-06-03 06:39] LABS: Thyroid Stimulating Hormone 0.103 mcIU/mL (0.350-4.840)
[2016-06-03] MEDS: Aspirin Enteric Coated 81 MG Tablet PO SCH (08:35)
[2016-06-03] MEDS: methylPREDNISolone 125 MG/2 ML VIAL IV SCH ×2 (08:36→17:48)
[2016-06-03] MEDS: Bumetanide 1 MG TABLET PO SCH ×2 (08:36→22:17)
[2016-06-03] MEDS: Insulin LISPRO 300 UNITS/3 ML VIAL SQ SCH ×4 (08:37→22:13)
--- NOTE | 2016-06-03 20:16 | Internal Med Progress Note ---
Date of Encounter: 06/03/16 Time of Encounter: 14:00 - Assessment and plan (1) COPD exacerbation Current Visit: No Status: Acute Assessment and plan: IV steroids, inhaled bronchodilators. IV antibiotics. Oxygen by nasal cannula. Smoking cessation counseling reinforced today. (2) Hypertension Current Visit: No Status: Chronic Assessment and plan: Stable Qualifiers: Hypertension type: essential hypertension Qualified Code(s): I10 - Essential (primary) hypertension (3) DVT prophylaxis Current Visit: No Status: Acute Assessment and plan: Heparin subcutaneous (4) Acute respiratory failure with hypoxia Current Visit: Yes Status: Acute Assessment and plan: Oxygen via nasal cannula. (5) Atrial fibrillation with RVR Current Visit: Yes Status: Acute Assessment and plan: Atrial fibrillation with RVR Continue metoprolol, we started Cardizem drip. We will consult cardiology. The patient had a brief episode of 27 beats and nonsustained ventricular tachycardia, telemetry tracing was reviewed by myself. - Subjective Interval history: Shortness of breath has improved over the last 48 hours. He reports associated dry cough, no chest pain or fever. Denies nausea vomiting diarrhea depression and anxiety and seizures. He has had an episode of ventricular tachycardia last night during which he reported no symptoms. - Constitutional Vitals: Temp Pulse Resp BP Pulse Ox 98 F 84 16 118/52 95 06/03/16 16:27 06/03/16 16:27 06/03/16 16:27 06/03/16 16:27 06/03/16 16:27 General appearance: Present: A&O X 3 - Respiratory Respiratory exam: Present: CTAB. Absent: accessory muscle use, rales, rhonchi, wheezes - Cardiovascular Cardiovascular exam: Present: irregular rhythm, +S1, +S2, tachycardia. Absent: diastolic murmur, gallop, rubs, systolic murmur - GI/Abdominal GI/Abdominal exam: Present: normal bowel sounds, soft, no peritoneal signs. Absent: distended, tenderness - Neurological Exam Neurological exam: Present: CN II-XII intact, oriented X3, no focal deficits. Absent: pronater drift, facial droop, speech deficit - Skin Skin exam: Present: dry, intact Internal Medicine: Result - Labs CBC & Chem 7: 06/03/16 04:27 06/03/16 04:27 Labs: Short CBC 06/03/16 Range/Units 04:27 WBC 19.9 H (4.3-11.1) K/mcL Hgb 14.0 (12.9-16.9) g/dL Hct 40.9 (37.5-50.1) % Plt Count 117 L (140-400) K/mcL Neutrophils # 17.7 H (1.6-8.9) K/mcL BMP 06/03/16 04:27 Sodium 139 Potassium 4.2 Chloride 103 Carbon Dioxide 25 BUN 83 H Creatinine 1.32 H Glucose 130 H Calcium 7.7 L - ABG Interpretation ABG results: ABG ABG pH TNP 05/31/16 03:59 ABG pCO2 TNP 05/31/16 03:59 ABG pO2 TNP 05/31/16 03:59 ABG O2 Saturation TNP 05/31/16 03:59 PT/INR, D-dimer PT 11.1 Seconds (9.4-12.1) 05/29/16 13:40 Consult Discharge Plan - Plan Referrals: Saud Potter MD [Primary Care Provider] -
[2016-06-04] MEDS: Ipratropium/Albuterol Neb 3 ML IH PRN (00:02)
[2016-06-04] MEDS: Ipratropium/Albuterol Neb 3 ML IH SCH ×7 (00:03→23:18)
[2016-06-04] MEDS: methylPREDNISolone 125 MG/2 ML VIAL IV SCH ×4 (00:47→23:59)
[2016-06-04] MEDS: Chloraseptic Spray 177 ML BOTTLE MM PRN ×3 (00:53→23:26)
[2016-06-04] MEDS: Menthol 9.1 MG LOZENGE PO PRN ×3 (05:30→22:37)
[2016-06-04] MEDS: *HR* Heparin 5,000 UNIT/ML VIAL SQ SCH (05:31)
[2016-06-04 06:40] LABS: Basophils # 0.1 K/mcL (0.0-0.2); Basophils % 0.4 %; Hematocrit 40.1 % (37.5-50.1); Hemoglobin 13.4 g/dL (12.9-16.9); Immature Granulocytes % 4.6 % (0-4); Lymphocytes # 0.3 K/mcL (0.6-4.6); Lymphocytes % 1.4 %; Mean Corpuscular HGB Conc 33.4 g/dL (31.6-35.5); Mean Corpuscular Hemoglobin 33.3 pg (28.0-33.3); Mean Corpuscular Volume 99.5 fL (83.0-100.0); Mean Platelet Volume 9.6 fL (9.4-12.4); Monocytes # 0.8 K/mcL (0.0-1.3); Monocytes % 3.8 %; Neutrophils # 17.6 K/mcL (1.6-8.9); Platelet Count 132 K/mcL (140-400); Red Blood Count 4.03 M/mcL (4.19-5.50); Red Cell Distribution Width 13.3 % (11.5-14.5); Segmented Neutrophils % 89.8 %
[2016-06-04 06:44] LABS: BUN/Creatinine Ratio 60 (6-26); Blood Urea Nitrogen 84 mg/dL (8-26); Calcium 7.3 mg/dL (8.6-10.8); Carbon Dioxide 28 mEq/L (19-29); Chloride 105 mEq/L (98-109); Glucose 175 mg/dL (70-99); Osmolality,Calculated 326 (280-300); Potassium 3.8 mEq/L (3.5-4.5); Sodium 143 mEq/L (136-145); eGFR For African Americans > 60 (> 60); eGFR For Non-African Americans 50 (> 60)
[2016-06-04] MEDS: Aspirin Enteric Coated 81 MG Tablet PO SCH (08:40)
[2016-06-04] MEDS: Bumetanide 1 MG TABLET PO SCH ×2 (08:40→20:16)
[2016-06-04] MEDS: Insulin LISPRO 300 UNITS/3 ML VIAL SQ SCH ×4 (08:42→20:33)
--- NOTE | 2016-06-04 11:52 | Cardiology Consult Note ---
Date of Encounter: 06/04/16 Time of Encounter: 11:45 Assessment and Plan (1) Ventricular tachycardia, nonsustained Current Visit: Yes Status: Acute Telemetry review shows atrial fibrillation with RVR with HR up to 150 bpm. Reported to have 26 beat run of NSVT by primary team. Logest run of NSVT seen in telemetry on our review was three beats long. All other events are atrial fibrillation with RVR. Continue beta-noam and monitor electrolytes. Re-check TTE to evaluate EF once HR controlled. (2) Atrial fibrillation with RVR Current Visit: Yes Status: Acute Likely exacerbated by COPD exacerbation. H/o PAF. Continue to titrate cardizem gtt to keep HR less than 100 bpm. Plan to convert to oral cardizem once HR controlled. Re-check TTE once HR better controlled. (3) CAD (coronary artery disease) Current Visit: Yes Status: Chronic H/o of remote PCI. Continue asa, statin, and bb. Qualifiers: Coronary Disease-Associated Artery/Lesion type: [place] artery [place] vs. transplanted heart: [place] heart Associated angina: without angina Qualified Code(s): I25.10 - Atherosclerotic heart disease of [place] coronary artery without angina pectoris (4) History of aortic valve replacement with bioprosthetic valve Current Visit: No Status: Chronic (5) Acute on chronic respiratory failure with hypoxia Current Visit: No Status: Resolved Secondary to COPD with mucus plugging. Pulmonology following. Discussion w patient/family: The assessment and plan as outlined above was discussed with the patient and/or family members who expressed understanding and agreement. All questions were answered. Thank you for involving us in the care of your patient. Please call with any questions. History of Present Illness Consult date: 06/04/16 Requesting physician: Ke Goff Consult reason: VT Chief complaint: SOB History of present illness: Mr. White is a 71 year old male with a history of CAD s/p previous PCI, bioprosthetic aortic valve replacement and maze procedure in 2009, paroxysmal atrial fibrillation, and COPD who presented with SOB. He was found to be in acute hypoxic respiratory failure and initially required intubation with ventilatory support. He is being treated for COPD exacerbation. Cardiology consulted for ventricular tachycardia seen during his stay. He also developed atrial fibrillation with RVR and is on a cardizem gtt. He denies chest pain or palpitations. Continues to have SOB, wheezing, and cough. C/o BLE feet edema since starting steroid therapy in the out-pt setting. Recent cardiac testing: TTE during this stay, EF not well visualized d/t atrial fibrillation with RVR, severely enlarged left atrium, aortic prosthesis not well visualized. TTE 03/2015- EF 60-65%, aortic valve not well visualized. Stress 2011- prior infarct, no ischemia, EF 43%. Past Med Surg Social Fam HX - Past Medical History Attestation: Yes The following information was validated with the patient. Medical history: atrial fibrillation, CHF, COPD, coronary artery disease, GERD, GI bleed, hyperlipidemia, hypertension, myocardial infarction, osteoporosis, valvular heart disease Psychiatric history: anxiety - Past Surgical History Surgical History: angioplasty/stent, appendectomy, carotid endarterectomy, heart valve replacement - Social History Smoking Status: Former smoker Smokeless Tobacco Status: No Alcohol use: heavy, recent Drug use: none - Family History Mother Family Member Ethnicity: Non- Living Status: Hx Family Cardiac Disorders: No Hx Family Respiratory Disorders: No Hx Family Cancer: Yes Hx Family GI Disorders: No Hx Family Endocrine Disorder: No Hx Family Neuromuscular Disorders: No Hx Family Neurologic Disorders: No Hx Family HEENT Disorders: No Hx Family Autoimmune Disorders: No Medications and Allergies Albuterol Neb [Proventil Neb] 2.5 mg IH Q6HR 04/13/15 [History] Albuterol Sulfate [Proair Respiclick] 2 puff IH Q4H PRN 04/13/15 [History] Alendronate Sodium [Fosamax] 35 mg PO QWEEK 04/13/15 [History] Aspirin [Adult Low Dose Aspirin EC] 81 mg PO DAILY 04/13/15 [History] Atorvastatin [Lipitor] 40 mg PO HS 04/13/15 [History] Bumetanide [Bumex] 1 mg PO BID 04/13/15 [History] Cinnamon Bark [Cinnamon] 1,000 mg PO DAILY 04/13/15 [History] Clopidogrel [Plavix] 75 mg PO DAILY 04/13/15 [History] Fluticasone/Salmeterol [Advair 500-50 Diskus] 1 each IH BID 04/13/15 [History] Garlic 1,000 mg PO BID 04/13/15 [History] Ipratropium [ATROVENT Inhaler] 2 puff IH Q6HR PRN 04/13/15 [History] Loratadine [Claritin] 10 mg PO DAILY 04/13/15 [History] Metoprolol [Lopressor] 50 mg PO BID 04/13/15 [History] Omeprazole [PriLOSEC] 20 mg PO DAILY 04/13/15 [History] Roflumilast [Daliresp] 500 mcg PO DAILY 04/13/15 [History] [place] Oil/[place]-3 Fatty Acids [Fish Oil 500 mg Softgel] 1 each PO BID 04/13/15 [History] Vitamin B Complex [B Complex] 1 each PO DAILY 04/13/15 [History] Vitamin E (Dl,Tocopheryl Acet) [Vitamin E] 400 unit PO DAILY 04/13/15 [History] Diazepam [Valium] 2 mg PO HS 05/29/16 [History] Levocetirizine Dihydrochloride [Xyzal] 5 mg PO DAILY 05/29/16 [History] PredniSONE [PredniSONE] 5 mg PO DAILY 05/29/16 [History] Allergies diazoxide Adverse Reaction (Verified 10/23/14 11:39) Rash furosemide [From Lasix] Adverse Reaction (Verified 10/23/14 11:39) Rash montelukast Adverse Reaction (Verified 10/23/14 11:39) See Comments Pneumococcal Vaccine Adverse Reaction (Verified 10/23/14 11:39) Rash All Systems Review: A 10-system review of systems was performed and is negative for pertinent findings except as documented above in the HPI. Physical Examination General: Conversant, No Apparent Distress HEENT: Atraumatic, Normocephaly, Mucus Membranes Moist Neck: No JVD, Normal carotid pulses Cardiac: Other (Irregularly irregular) Lungs: Other (Loud rhonci and wheezes scattered throughout, moist cough) Neuro: Alert and responsive, No focal deficits noted Abdomen: Soft, Non-Tender Skin: No rashes noted on visualized skin Musculoskeletal: No Chest Wall Tenderness Extremities: No Clubbing, No Cyanosis, Normal Pulses, Other (2+ pitting feet and ankle edema. ) Results 06/04/16 06:08 06/04/16 06:08 Lab Results 06/04/16 06/04/16 06:08 06:08 WBC 19.5 H Hgb 13.4 Hct 40.1 Plt Count 132 L Sodium 143 Potassium 3.8 Chloride 105 Carbon Dioxide 28 BUN 84 H Creatinine 1.39 H Glucose 175 H Calcium 7.3 L - Imaging and Cardiology Stress Test: report reviewed Echo: report reviewed - EKG Interpretation EKG results cardiology: personally reviewed (Atrial fibrillation with RVR, HR 131, no acute ST changes.), other (Telemetry review shows AVg HR 79bpm.) Consult Discharge Plan - Plan Referrals: Saud Potter MD [Primary Care Provider] -
--- NOTE | 2016-06-04 16:03 | Internal Med Progress Note ---
Date of Encounter: 06/04/16 Time of Encounter: 16:01 - Assessment and plan (1) COPD exacerbation Current Visit: No Status: Acute Assessment and plan: Worsening SOB and cough and congestion. will get CT chest, increase duoneb to q4h. Add Cefepime, I suspect pseudomonas given chr lung disease w/ recurrent exacerbation, IV steroids, inhaled bronchodilators. IV antibiotics. Oxygen by nasal cannula. Smoking cessation counseling reinforced today. (2) Hypertension Current Visit: No Status: Chronic Assessment and plan: Stable Qualifiers: Hypertension type: essential hypertension Qualified Code(s): I10 - Essential (primary) hypertension (3) DVT prophylaxis Current Visit: No Status: Acute Assessment and plan: On Eliquis (4) Acute respiratory failure with hypoxia Current Visit: Yes Status: Acute Assessment and plan: Oxygen via nasal cannula. Palliative consult for age, advanced COPD w/ respiratory failure. (5) Atrial fibrillation with RVR Current Visit: Yes Status: Acute Assessment and plan: Atrial fibrillation with RVR Continue metoprolol, snd Cardizem drip. Appreciate cardiology recs. (6) Oral thrush Current Visit: Yes Status: Acute Assessment and plan: oral nystatin - Subjective Interval history: 06/04: pt more SOB says w/ more congestion sice yesterday, soome oral pain, no N/ V. Shortness of breath has improved over the last 48 hours. He reports associated dry cough, no chest pain or fever. Denies nausea vomiting diarrhea depression and anxiety and seizures. He has had an episode of ventricular tachycardia last night during which he reported no symptoms. - Constitutional Vitals: Temp Pulse Resp BP Pulse Ox 97.5 F L 97 16 121/60 97 06/04/16 07:45 06/04/16 07:45 06/04/16 07:45 06/04/16 07:45 06/04/16 07:45 General appearance: Present: A&O X 3 - Eye Eye exam: Present: PERRL, conjuntiva pink, sclera anicteric Pupils: Present: PERRL - ENT Additional comments: oral thrush - Neck Neck exam general surgery: Present: supple, trachea midline. Absent: lymphadenopathy - Respiratory Respiratory exam: Present: CTAB. Absent: accessory muscle use, rales, rhonchi, wheezes - Cardiovascular Cardiovascular exam: Present: irregular rhythm, +S1, +S2, tachycardia. Absent: diastolic murmur, gallop, rubs, systolic murmur - GI/Abdominal GI/Abdominal exam: Present: normal bowel sounds, soft, no peritoneal signs. Absent: distended, tenderness - Extremities Exam Extremities exam: Present: pedal edema, warm, radial pulses palpable and symetrical. Absent: calf tenderness, cyanotic - Skin Skin exam: Present: dry, intact Internal Medicine: Result - Labs CBC & Chem 7: 06/04/16 06:08 06/04/16 06:08 Labs: Short CBC 06/04/16 Range/Units 06:08 WBC 19.5 H (4.3-11.1) K/mcL Hgb 13.4 (12.9-16.9) g/dL Hct 40.1 (37.5-50.1) % Plt Count 132 L (140-400) K/mcL Neutrophils # 17.6 H (1.6-8.9) K/mcL BMP 06/04/16 06:08 Sodium 143 Potassium 3.8 Chloride 105 Carbon Dioxide 28 BUN 84 H Creatinine 1.39 H Glucose 175 H Calcium 7.3 L - ABG Interpretation ABG results: ABG ABG pH TNP 05/31/16 03:59 ABG pCO2 TNP 05/31/16 03:59 ABG pO2 TNP 05/31/16 03:59 ABG O2 Saturation TNP 05/31/16 03:59 PT/INR, D-dimer PT 11.1 Seconds (9.4-12.1) 05/29/16 13:40 Consult Discharge Plan - Plan Referrals: Saud Potter MD [Primary Care Provider] -
[2016-06-04] MEDS: Nystatin SUSP 5 ML UD.LIQ PO SCH ×2 (17:22→20:16)
[2016-06-04] MEDS: levoFLOXacin 750 MG TABLET PO SCH (17:22)
[2016-06-04] MEDS: APIXABAN 5 MG TABLET PO SCH (17:22)
[2016-06-04] MEDS: Cefepime HCl 1,000 MG in D5% in Water (Mini-Bag+) 100 ML IVPB SCH (19:39)
[2016-06-05] MEDS: Ipratropium/Albuterol Neb 3 ML IH SCH ×6 (04:21→23:48)
[2016-06-05 05:48] LABS: Basophils # 0.1 K/mcL (0.0-0.2); Basophils % 0.3 %; Hematocrit 38.7 % (37.5-50.1); Hemoglobin 13.4 g/dL (12.9-16.9); Immature Granulocytes % 3.9 % (0-4); Lymphocytes # 0.3 K/mcL (0.6-4.6); Lymphocytes % 1.2 %; Mean Corpuscular HGB Conc 34.6 g/dL (31.6-35.5); Mean Corpuscular Hemoglobin 34.3 pg (28.0-33.3); Mean Platelet Volume 9.7 fL (9.4-12.4); Monocytes # 1.2 K/mcL (0.0-1.3); Monocytes % 5.1 %; Neutrophils # 20.6 K/mcL (1.6-8.9); Platelet Count 134 K/mcL (140-400); Red Blood Count 3.91 M/mcL (4.19-5.50); Red Cell Distribution Width 13.3 % (11.5-14.5); Segmented Neutrophils % 89.5 %
[2016-06-05 05:57] LABS: Calcium 7.6 mg/dL (8.6-10.8); Potassium 3.9 mEq/L (3.5-4.5)
[2016-06-05] MEDS: APIXABAN 5 MG TABLET PO SCH ×2 (06:16→16:42)
[2016-06-05] MEDS: Cefepime HCl 1,000 MG in D5% in Water (Mini-Bag+) 100 ML IVPB SCH ×2 (06:17→16:44)
[2016-06-05] MEDS: Aspirin Enteric Coated 81 MG Tablet PO SCH (09:15)
[2016-06-05] MEDS: methylPREDNISolone 125 MG/2 ML VIAL IV SCH ×3 (09:16→23:53)
[2016-06-05] MEDS: Bumetanide 1 MG TABLET PO SCH ×2 (09:16→20:16)
[2016-06-05] MEDS: Nystatin SUSP 5 ML UD.LIQ PO SCH ×4 (09:16→20:16)
[2016-06-05] MEDS: Insulin LISPRO 300 UNITS/3 ML VIAL SQ SCH ×4 (09:16→23:19)
[2016-06-05] MEDS: Diltiazem CD (24hr) 120 MG CAPSULE PO SCH ×2 (11:48→20:16)
--- NOTE | 2016-06-05 12:37 | Cardiology Progress Note ---
Date of Encounter: 06/05/16 Time of Encounter: 12:35 Assessment and Plan (1) Ventricular tachycardia, nonsustained Current Visit: Yes Status: Acute Small runs of NSVT seen during hospital stay. Longest was 6 beat run seen over last 24 hours. Repeat TTE pending. BB increased. Potassium and magnesium are normal. (2) Atrial fibrillation with RVR Current Visit: Yes Status: Acute Likely aggravated by COPD exacerbation. H/o PAF. Heart rate continue to be elevated. Avg HR was 100 bpm. HR 112-120 during my exam. Cardizem converted to oral and lopressor increased. Continue to titrate as needed. CHADS, VASc= 2. Pt declines to take warfarin. CVA risk discussed yesterday and he was agreeable to NOAC. He reported today that he likes to drink 5 beers a day and does not want to stop drinking but may drink less. ETOH cessation discussed. He was noted to have a nose bleed this morning. Continue to monitor. (3) CAD (coronary artery disease) Current Visit: Yes Status: Chronic H/o of remote PCI. Continue asa, statin, and bb. Qualifiers: Coronary Disease-Associated Artery/Lesion type: [place] artery [place] vs. transplanted heart: [place] heart Associated angina: without angina Qualified Code(s): I25.10 - Atherosclerotic heart disease of [place] coronary artery without angina pectoris (4) History of aortic valve replacement with bioprosthetic valve Current Visit: No Status: Chronic Discussion w patient/family: The assessment and plan as outlined above was discussed with the patient and/or family members who expressed understanding and agreement. All questions were answered. Thank you for involving us in the care of your patient. Please call with any questions. Subjective Principal diagnosis: Acute respiratory failure Interval history: Mr. White is concerned about taking eliquis d/t drinking 5 beers a day. He states he does not think he we take it. Objective Vital Signs, Last 4 Hours Temp Pulse Resp BP Pulse Ox 06/05/16 11:42 98.1 F 84 20 132/60 96 General: Conversant, No Apparent Distress HEENT: Other (Current epistaxis, maintained by nose packing.) Neck: No JVD, Normal carotid pulses Cardiac: Other (Irregularly irregular. ) Lungs: Other (Rhonci scattered throughout. Respirations slightly labored. ) Neuro: Alert and responsive, No focal deficits noted Abdomen: Soft, Non-Tender Skin: No rashes noted on visualized skin Musculoskeletal: No Chest Wall Tenderness Extremities: No Clubbing, No Cyanosis, Normal Pulses, Other (1+ pedal edema. ) Results 06/05/16 05:24 06/05/16 05:24 Lab Results 06/05/16 06/05/16 05:24 05:24 WBC 23.1 H Hgb 13.4 Hct 38.7 Plt Count 134 L Sodium 141 Potassium 3.9 Chloride 107 Carbon Dioxide 23 BUN 89 H Creatinine 1.45 H Glucose 157 H Calcium 7.6 L - Imaging and Cardiology Echo: pending - EKG Interpretation EKG results cardiology: other (24 hour telemetry review shows avg HR was 100 bpm. Current HR was 112-120 bpm atrial fibrillation.) Consult Discharge Plan - Plan Referrals: Saud Potter MD [Primary Care Provider] -
--- NOTE | 2016-06-05 13:06 | ECHO - Doppler Report ---
Echocardiogram Name: Izaiah White Date of Study: 06/05/2016 Date: 1945 Ht: 66.0 in Medical Record#: [id number] Age: 71 Wt: 213.0 lb Gender: Male BSA: 2.05 Order #: [id number] Location: [facility] Room #: [id number] Reading Physician: Vinay Mario DO, FACC, JAH, LATRICIA Dye Range Operator Cloth: TANYA CedenoT, RDLEONEL Ordering Physician: Booker Menchaca CNP Primary Physician: Saud Potter MD Indications: Tachycardia Impressions: LVEF 40-45%. Moderate concentric left ventricular hypertrophy. Segmental left ventricular systolic dysfunction. Atypical septal motion consistent with post-operative status. Grossly normal right ventricular structure and function. Severely dilated left atrium. Bioprosthetic aortic valve was not well visualized. Moderate aortic regurgitation. Unable to determine if valvular or tosha-valvular. No significant prosthetic aortic stenosis noted. Mean gradient 17 mmHg. No evidence of pulmonary hypertension. Left Ventricular Wall Motion: Rest Echo Findings The apex, apical inferior and apical septal polo were hypokinetic. All other wall segments showed normal motion. Findings: Study Quality * Technically sub-optimal due to poor echocardiographic windows. ECG Findings * Atrial fibrillation. Left Ventricle * LVEF 40-45%. * Moderate concentric left ventricular hypertrophy. * Normal LV chamber size. * Segmental left ventricular systolic dysfunction. * Indeterminate diastolic function. * Atypical septal motion consistent with post-operative status. Right Ventricle * Grossly normal right ventricular structure and function. Left Atrium * Severely dilated left atrium. Right Atrium * Mildly dilated right atrium. Interatrial Septum * Interatrial septum not well evaluated. Aortic Valve * Bioprosthetic aortic valve was not well visualized. * Moderate aortic regurgitation. Unable to determine if valvular or tosha-valvular. * No prosthetic aortic stenosis noted. Mean gradient 17 mmHg. Mitral Valve * Moderate posterior mitral annular calcification. * Mildly thickened mitral valve leaflets. * Trace mitral regurgitation. * No mitral stenosis. Tricuspid Valve * Normal tricuspid valve structure and function. * Trace tricuspid regurgitation. * No evidence of pulmonary hypertension. Pulmonic Valve * Normal pulmonic valve structure and function. * Trace pulmonic regurgitation. Aorta * Normally sized aortic root. Pericardium * The pericardium appears normal. IVC * The IVC is not well evaluated. Pulmonary Artery * Pulmonary artery not well visualized. History Hypertension Hypercholesteremia Myocardial Infarction Valvular Disease Valve Replacement AV Prosthesis Biologic 06-01-2016 a Previous Echo was performed. Measurements: BP: 132/ 60 2D Normal Values RVIDd: 3.00 cm <2.7 cm IVSd: 1.50 cm 0.6 - 1.0 cm LVIDd: 4.80 cm 3.7 - 5.6 cm LVPWd: 1.50 cm 0.6 - 1.1 cm LVIDs: 3.60 cm 1.5 - 3.6 cm AO: 2.90 cm < 4.0 cm LA: 4.70 cm 2.0 - 4.0cm %FS: 25.00 cm >25 % LVOT Diam: 2.00 cm LA volume: 89 Mitral Valve Peak Velocity 1.41 m/sec Mean Velocity:.61 m/sec Peak Grad:8.00 mmHg Mean Grad:2.00 mmHg Pressure Time:73.00 msec Valve Area:2.18 cm2 Peak E:1.12 m/sec LVOT Peak Rambo:.97 m/sec Mean Rambo:.67 m/sec Peak Grad:4.00 mmHg Mean Grad:2.00 mmHg Aortic Valve Peak Rambo:3.12 m/sec Mean Rambo:1.84 m/sec Peak Grad:39.00 mmHg Mean Grad:17.00 mmHg Valve Area:1.19 cm2 AI pressure Half-time: 384.00 msec Tricuspid Valve TV Regurg Peak Grad: 28.00mmHg TV Regurg Peak Rambo: 2.64m/sec Updated by Vinay Mario DO, FACPrince, LATRICIA TYSON on 06/05/2016 1:01:28 PM electronically signed on 06/05/2016 1:02:00 PM with status of Final Wall Motion An: 1=Normal, 2=Hypokinesis, 3=Akinesis, 4=Dyskinesis, 5=Aneurysmal, 6=Hyperkinetic, X=Not Visualized (Blank)=Missing
--- NOTE | 2016-06-05 13:43 | Palliative - Consult Note ---
Date of Encounter: 06/05/16 Time of Encounter: 13:45 - Assessment and Plan (1) Dyspnea Current Visit: Yes Status: Acute Assessment and plan: Patient continues treatment with atb/supportive oxygen/bronchodilators/ steroids. He continues to desire aggressive care and is ok with intubation if necessary. Qualifiers: Dyspnea type: unspecified Qualified Code(s): R06.00 - Dyspnea, unspecified (2) Goals of care, counseling/discussion Current Visit: Yes Status: Acute Assessment and plan: Discussed with pt current clinical status - he is upset at the current time that he has not spoke with his son in [place] as he cannot call out on hospital phone. I utilized cell phone for patient and let him speak with son. I then spoke with son via phone and pt re: COPD and current treatment of afib. During this phone call, we did complete medical POA and pt designated son, Wily White as primary POA and his brother Henrry White as alternate. Copies of POA provided to pt and copy place in medical record. I will also mail one to pt son in [place]. After discussion, pt desires to remain full code. We discussed intubation with COPD, and if ventilator unable to be weaned, they may have to make decision re: tracheostomy and shelter vent support. Patient unsure if he would desire this. By end of conversation, pt seems to grow intolerant of my information. Answered sons questions. I encourage pt that he needs to have discussions with his son re: these issues and decision, so his son can abide by his wishes. Patient currently living at home alone and states he is independent. Still drives. He has already spoke with someone re: home care and already has oxygen in place provided by [facility]. He would be interested in passport referral as well. Unsure at this point if he may benefit from rehab stay, but may also be possibility if he would consider. Palliative will f/u Wednesday am. (3) Very severe chronic obstructive pulmonary disease Current Visit: No Status: Chronic (4) COPD exacerbation Current Visit: No Status: Acute (5) Atrial fibrillation with RVR Current Visit: Yes Status: Acute Palliative-CN HPI - Data of Consult Consult date: 06/05/16 Requesting Physician: Ke Goff MD Primary Care Provider: Saud Potter MD - Consult Narrative History of present illness: Mr. White is a 71 year old male who lives alone in [facility] who was admitted with increasing shortness of breath. Patient had seen primary physician, Dr. Potter and had recently receiving atb and steroids for COPD. However, he did not improve and was transported to [facility]. Shortly after ER arrival, his respiratory status deteriorated and he was intubated on 05/29 by curator of collections. Bronchoscopy was performed and mucus plugs removed. He was extubated on 05/30. He was also found to be in atrial fibrillation with rapid ventricular response and cardiology has been following and managing. Patient refused Coumadin for anticoagulation, but was agreeable to Eliquis. He has history of aortic valve replacement and reportedly drinks approximately 5 beers daily. Upon my visit, he is up in chair. Raspy voice, and becomes short of breath with conversation. Denies any pain, nausea, or vomiting. States good appetite. + BM. CC: Ke Goff MD Past Med Surg Social Fam HX - Past Medical History Medical history: atrial fibrillation, CHF, COPD, coronary artery disease, GERD, GI bleed, hyperlipidemia, hypertension, myocardial infarction, osteoporosis, valvular heart disease Psychiatric history: anxiety - Past Surgical History Surgical History: angioplasty/stent, appendectomy, carotid endarterectomy, heart valve replacement - Social History Smoking Status: Former smoker Smokeless Tobacco Status: No Alcohol use: heavy, recent Drug use: none - Family History Mother Family Member Ethnicity: Non- Living Status: Hx Family Cardiac Disorders: No Hx Family Respiratory Disorders: No Hx Family Cancer: Yes Hx Family GI Disorders: No Hx Family Endocrine Disorder: No Hx Family Neuromuscular Disorders: No Hx Family Neurologic Disorders: No Hx Family HEENT Disorders: No Hx Family Autoimmune Disorders: No Medications and Allergies Albuterol Neb [Proventil Neb] 2.5 mg IH Q6HR 04/13/15 [History] Albuterol Sulfate [Proair Respiclick] 2 puff IH Q4H PRN 04/13/15 [History] Alendronate Sodium [Fosamax] 35 mg PO QWEEK 04/13/15 [History] Aspirin [Adult Low Dose Aspirin EC] 81 mg PO DAILY 04/13/15 [History] Atorvastatin [Lipitor] 40 mg PO HS 04/13/15 [History] Bumetanide [Bumex] 1 mg PO BID 04/13/15 [History] Cinnamon Bark [Cinnamon] 1,000 mg PO DAILY 04/13/15 [History] Clopidogrel [Plavix] 75 mg PO DAILY 04/13/15 [History] Fluticasone/Salmeterol [Advair 500-50 Diskus] 1 each IH BID 04/13/15 [History] Garlic 1,000 mg PO BID 04/13/15 [History] Ipratropium [ATROVENT Inhaler] 2 puff IH Q6HR PRN 04/13/15 [History] Loratadine [Claritin] 10 mg PO DAILY 04/13/15 [History] Metoprolol [Lopressor] 50 mg PO BID 04/13/15 [History] Omeprazole [PriLOSEC] 20 mg PO DAILY 04/13/15 [History] Roflumilast [Daliresp] 500 mcg PO DAILY 04/13/15 [History] [place] Oil/[place]-3 Fatty Acids [Fish Oil 500 mg Softgel] 1 each PO BID 04/13/15 [History] Vitamin B Complex [B Complex] 1 each PO DAILY 04/13/15 [History] Vitamin E (Dl,Tocopheryl Acet) [Vitamin E] 400 unit PO DAILY 04/13/15 [History] Diazepam [Valium] 2 mg PO HS 05/29/16 [History] Levocetirizine Dihydrochloride [Xyzal] 5 mg PO DAILY 05/29/16 [History] PredniSONE [PredniSONE] 5 mg PO DAILY 05/29/16 [History] Allergies diazoxide Adverse Reaction (Verified 10/23/14 11:39) Rash furosemide [From Lasix] Adverse Reaction (Verified 10/23/14 11:39) Rash montelukast Adverse Reaction (Verified 10/23/14 11:39) See Comments Pneumococcal Vaccine Adverse Reaction (Verified 10/23/14 11:39) Rash All systems: reviewed and no additional remarkable complaints except as stated ( dyspnea with any exertion, harsh cough, generalized weakness) Palliative Care-Exam - Constitutional Vitals: Temp Pulse Resp BP Pulse Ox 98.1 F 84 20 132/60 96 06/05/16 11:42 06/05/16 11:42 06/05/16 11:42 06/05/16 11:42 06/05/16 11:42 General appearance: Present: mild distress - Head Head Exam: Present: normal inspection, normocephalic - Eye Eye exam: Present: normal appearance, PERRL Pupils: Present: normal accommodation - Expanded Respiratory Exam Location: rhonchi: Left, Right, Lower, wheezes: Left, Right, Upper - Cardiovascular Cardiovascular exam: Present: irregular rhythm, tachycardia - GI/Abdominal Exam GI/Abdominal exam: Present: normal bowel sounds, soft - Extremities Exam Extremities exam: Present: normal capillary refill, normal inspection - Neurological Exam Neurological exam: Present: alert, oriented X3, strengths equal and symetr throughout - Skin Skin exam: Present: dry, warm Internal Medicine - CN: Reslt - Labs CBC & Chem 7: 06/05/16 05:24 06/05/16 05:24 Labs: Short CBC 06/05/16 Range/Units 05:24 WBC 23.1 H (4.3-11.1) K/mcL Hgb 13.4 (12.9-16.9) g/dL Hct 38.7 (37.5-50.1) % Plt Count 134 L (140-400) K/mcL Neutrophils # 20.6 H (1.6-8.9) K/mcL BMP 06/05/16 05:24 Sodium 141 Potassium 3.9 Chloride 107 Carbon Dioxide 23 BUN 89 H Creatinine 1.45 H Glucose 157 H Calcium 7.6 L - ABG Interpretation ABG results: ABG ABG pH TNP 05/31/16 03:59 ABG pCO2 TNP 05/31/16 03:59 ABG pO2 TNP 05/31/16 03:59 ABG O2 Saturation TNP 05/31/16 03:59 PT/INR, D-dimer PT 11.1 Seconds (9.4-12.1) 05/29/16 13:40 - Impressions Impressions Chest CT 06/04/16 15:57 IMPRESSION: No acute cardiopulmonary disease is identified. D/ / Hao Dave MD / Hao Dave MD Interpreting Provider: Hao Dave MD Consult Discharge Plan - Plan Referrals: Saud Potter MD [Primary Care Provider] - Palliative Quality Palliative Quality: Screen for Code Status: Yes, Screen for Goals of Care: Yes, Screen for Pain: Yes, If Pain Regimen Started, Initiate Bowel Regimen: NA, Screen for Nausea/Vomitting: Yes Code Status: 06/01/16 12:40 CODE [Resuscitation Status: Active] [RES] Routine Comment: Resuscitation Status: Full Code
[2016-06-05] MEDS ORDERED: Saline Nasal Spray 44 ML BOTTLE NS PRN (18:46)
--- NOTE | 2016-06-05 20:57 | Internal Med Progress Note ---
Date of Encounter: 06/05/16 Time of Encounter: 17:00 - Assessment and plan (1) COPD exacerbation Current Visit: No Status: Acute Assessment and plan: CT of the chest showed no acute disease in the chest. We will continue with DuoNeb, continue with antibiotics and steroids. Plan to taper steroids and switched to oral antibiotics in 1-2 days of continued improvement. Worsening SOB and cough and congestion. will get CT chest, increase duoneb to q4h. Add Cefepime, I suspect pseudomonas given chr lung disease w/ recurrent exacerbation, IV steroids, inhaled bronchodilators. IV antibiotics. Oxygen by nasal cannula. Smoking cessation counseling reinforced today. (2) Hypertension Current Visit: No Status: Chronic Assessment and plan: Stable Qualifiers: Hypertension type: essential hypertension Qualified Code(s): I10 - Essential (primary) hypertension (3) DVT prophylaxis Current Visit: No Status: Acute Assessment and plan: On Eliquis (4) Acute respiratory failure with hypoxia Current Visit: Yes Status: Acute Assessment and plan: Oxygen via nasal cannula. Palliative consult for age, advanced COPD w/ respiratory failure. (5) Atrial fibrillation with RVR Current Visit: Yes Status: Acute Assessment and plan: Atrial fibrillation with RVR Continue metoprolol, snd Cardizem drip. Appreciate cardiology recs. (6) Oral thrush Current Visit: Yes Status: Acute - Subjective Interval history: 06/05/2016: The patient says her shortness of breath is getting better, still has productive cough. 06/04: pt more SOB says w/ more congestion sice yesterday, soome oral pain, no N/ V. Shortness of breath has improved over the last 48 hours. He reports associated dry cough, no chest pain or fever. Denies nausea vomiting diarrhea depression and anxiety and seizures. He has had an episode of ventricular tachycardia last night during which he reported no symptoms. - Constitutional Vitals: Temp Pulse Resp BP Pulse Ox 97.6 F 77 18 120/75 97 06/05/16 15:32 06/05/16 15:32 06/05/16 15:50 06/05/16 15:32 06/05/16 15:50 General appearance: Present: A&O X 3 - Neck Neck exam general surgery: Present: supple, trachea midline. Absent: lymphadenopathy - Respiratory Respiratory exam: Present: wheezes. Absent: accessory muscle use, rales, rhonchi, tachypnea - Cardiovascular Cardiovascular exam: Present: RRR, +S1, +S2. Absent: diastolic murmur, gallop, rubs, systolic murmur Internal Medicine: Result - Labs CBC & Chem 7: 06/05/16 05:24 06/05/16 05:24 Labs: Short CBC 06/05/16 Range/Units 05:24 WBC 23.1 H (4.3-11.1) K/mcL Hgb 13.4 (12.9-16.9) g/dL Hct 38.7 (37.5-50.1) % Plt Count 134 L (140-400) K/mcL Neutrophils # 20.6 H (1.6-8.9) K/mcL BMP 06/05/16 05:24 Sodium 141 Potassium 3.9 Chloride 107 Carbon Dioxide 23 BUN 89 H Creatinine 1.45 H Glucose 157 H Calcium 7.6 L - ABG Interpretation ABG results: ABG ABG pH TNP 05/31/16 03:59 ABG pCO2 TNP 05/31/16 03:59 ABG pO2 TNP 05/31/16 03:59 ABG O2 Saturation TNP 05/31/16 03:59 PT/INR, D-dimer PT 11.1 Seconds (9.4-12.1) 05/29/16 13:40 Consult Discharge Plan - Plan Referrals: Saud Potter MD [Primary Care Provider] -
[2016-06-06] MEDS: Ipratropium/Albuterol Neb 3 ML IH SCH ×6 (04:29→23:45)
[2016-06-06] MEDS: Cefepime HCl 1,000 MG in D5% in Water (Mini-Bag+) 100 ML IVPB SCH ×2 (06:20→17:00)
[2016-06-06] MEDS: APIXABAN 5 MG TABLET PO SCH ×2 (06:21→17:00)
[2016-06-06 06:30] LABS: Basophils % 0.1 %; Hematocrit 37.5 % (37.5-50.1); Hemoglobin 12.7 g/dL (12.9-16.9); Immature Granulocytes % 2.6 % (0-4); Lymphocytes # 0.3 K/mcL (0.6-4.6); Lymphocytes % 1.2 %; Mean Corpuscular HGB Conc 33.9 g/dL (31.6-35.5); Mean Corpuscular Hemoglobin 33.6 pg (28.0-33.3); Mean Corpuscular Volume 99.2 fL (83.0-100.0); Mean Platelet Volume 10.2 fL (9.4-12.4); Monocytes # 0.8 K/mcL (0.0-1.3); Monocytes % 3.8 %; Neutrophils # 19.4 K/mcL (1.6-8.9); Platelet Count 113 K/mcL (140-400); Red Blood Count 3.78 M/mcL (4.19-5.50); Red Cell Distribution Width 13.3 % (11.5-14.5); Segmented Neutrophils % 92.3 %
[2016-06-06 06:39] LABS: Calcium 7.6 mg/dL (8.6-10.8)
[2016-06-06] MEDS: Insulin LISPRO 300 UNITS/3 ML VIAL SQ SCH ×4 (09:35→21:28)
[2016-06-06] MEDS: Aspirin Enteric Coated 81 MG Tablet PO SCH (09:35)
[2016-06-06] MEDS: Nystatin SUSP 5 ML UD.LIQ PO SCH ×4 (09:35→21:27)
[2016-06-06] MEDS: Diltiazem CD (24hr) 120 MG CAPSULE PO SCH (09:35)
--- NOTE | 2016-06-06 10:41 | Nephrology Consult Note ---
Date of Encounter: 06/06/16 Time of Encounter: 10:37 Assessment and Plan (1) Dehydration Current Visit: No Status: Acute JB on CKD stage III with a b/l SCr near 1.3-1.4 and today upto 1.6 with progressively rising BUN (azotemia) and magaly above 100 today. On exam, I could not find any signs for uremia: no indications for LPN PER DIEM at this time. His UOP is borderline oliguric the last few days, according to the I/Os (about 400mL per day). Rising BUN out of proportion to the creatinine, can be seen with steroid medication (he's receiving Solu-Medrol), diuretics (he has been on chronic Bumex ), and sometimes also from other meds such as Cimetidine or even if a pt had a GIB (however he's not on Cimetidine and his Hgb has been stable). His COPD is severe enough that I agree with the Solu-Medrol. His exam today was one of the worst pulmonology auscultations that I've heard in some time. To help the azotemia then renal function, then, I recommend holding the Bumex. But would not provide IVF today d/t his 2-3+ pitting b/l ankle edema. He will need a low Na diet and I will order LE stocking as well. Elevate feet. In the meantime, follow a renal protective strategy: avoid NSAIDs, Bactrim, Contrast and other nephrotoxins. Strict I/Os and daily weights. Check CKD serologies and basic work up such as an SPEP and also he should have a renal U/S to rule out any potential post-renal contribution. Thank you for consulting the [facility] group. Will follow with you. (2) Azotemia Current Visit: Yes Status: Acute See above (3) Acute kidney injury Current Visit: No Status: Acute See above (4) CKD (chronic kidney disease), stage III Current Visit: Yes Status: Chronic See above (5) Acute exacerbation of chronic obstructive airways disease Current Visit: Yes Status: Acute See above History of Present Illness - Reason for Consult Consult date: 06/06/16 Acute Kidney Injury, Chronic Kidney Disease Requesting physician: Ke Goff - Chief Complaint JB on CKD with azotemia - History of Present Illness 71 y/o very pleasant WM gentleman with a pmh of COPD followed by [facility] on chronic Prednisone, AFib (followed by [facility]) edema on Bumex at home, and et al who presented with dyspnea on 06/02/16. His PCP is Dr. Potter. Nephrology was consulted for worsening azotemia and JB during this hospitalization. I reviewed prior hospitalizations in which he also had JB events and his weights oscillated from 72-78kg. He has been on Bumex 1mg po daily and Prednisone 5mg daily according to his med list. He was been treated for a COPD AE and has received Solu-Medrol. His Hgb has been relatively stable and no signs or symptoms were reported of a GIB. His sons were present and one flew in from [place] overnight. The pt denied XS use of NSAIDs. He did not report any uremic syptoms or dehydration symptoms that could contribute the JB on CKD: no N/V/D; he has a good appetite as well (which would be affected if he had uremia). 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 Past Med Surg Social Fam HX - Past Medical History Medical history: atrial fibrillation, CHF, COPD, coronary artery disease, GERD, GI bleed, hyperlipidemia, hypertension, myocardial infarction, osteoporosis, valvular heart disease Psychiatric history: anxiety - Past Surgical History Surgical History: angioplasty/stent, appendectomy, carotid endarterectomy, heart valve replacement - Social History Smoking Status: Former smoker Smokeless Tobacco Status: No Alcohol use: heavy, recent Drug use: none - Family History Mother Family Member Ethnicity: Non- Living Status: Hx Family Cardiac Disorders: No Hx Family Respiratory Disorders: No Hx Family Cancer: Yes Hx Family GI Disorders: No Hx Family Endocrine Disorder: No Hx Family Neuromuscular Disorders: No Hx Family Neurologic Disorders: No Hx Family HEENT Disorders: No Hx Family Autoimmune Disorders: No Medications and Allergies Albuterol Neb [Proventil Neb] 2.5 mg IH Q6HR 04/13/15 [History] Albuterol Sulfate [Proair Respiclick] 2 puff IH Q4H PRN 04/13/15 [History] Alendronate Sodium [Fosamax] 35 mg PO QWEEK 04/13/15 [History] Aspirin [Adult Low Dose Aspirin EC] 81 mg PO DAILY 04/13/15 [History] Atorvastatin [Lipitor] 40 mg PO HS 04/13/15 [History] Bumetanide [Bumex] 1 mg PO BID 04/13/15 [History] Cinnamon Bark [Cinnamon] 1,000 mg PO DAILY 04/13/15 [History] Clopidogrel [Plavix] 75 mg PO DAILY 04/13/15 [History] Fluticasone/Salmeterol [Advair 500-50 Diskus] 1 each IH BID 04/13/15 [History] Garlic 1,000 mg PO BID 04/13/15 [History] Ipratropium [ATROVENT Inhaler] 2 puff IH Q6HR PRN 04/13/15 [History] Loratadine [Claritin] 10 mg PO DAILY 04/13/15 [History] Metoprolol [Lopressor] 50 mg PO BID 04/13/15 [History] Omeprazole [PriLOSEC] 20 mg PO DAILY 04/13/15 [History] Roflumilast [Daliresp] 500 mcg PO DAILY 04/13/15 [History] [place] Oil/[place]-3 Fatty Acids [Fish Oil 500 mg Softgel] 1 each PO BID 04/13/15 [History] Vitamin B Complex [B Complex] 1 each PO DAILY 04/13/15 [History] Vitamin E (Dl,Tocopheryl Acet) [Vitamin E] 400 unit PO DAILY 04/13/15 [History] Diazepam [Valium] 2 mg PO HS 05/29/16 [History] Levocetirizine Dihydrochloride [Xyzal] 5 mg PO DAILY 05/29/16 [History] PredniSONE [PredniSONE] 5 mg PO DAILY 05/29/16 [History] Allergies diazoxide Adverse Reaction (Verified 10/23/14 11:39) Rash furosemide [From Lasix] Adverse Reaction (Verified 10/23/14 11:39) Rash montelukast Adverse Reaction (Verified 10/23/14 11:39) See Comments Pneumococcal Vaccine Adverse Reaction (Verified 10/23/14 11:39) Rash Review of Systems All Systems: reviewed and no additional remarkable complaints except as stated Exam - Vital Signs Vital signs: Initial Vital Signs Temp Pulse Resp BP Pulse Ox 98.4 F 135 18 130/105 94 L 05/29/16 13:20 05/29/16 13:20 05/29/16 13:20 05/29/16 13:20 05/29/16 13:20 Vital Signs - Last 8 Hours Temp Pulse Resp BP Pulse Ox 06/06/16 07:45 18 96 06/06/16 07:34 98.3 F 100 16 139/83 100 06/06/16 05:00 97 19 111/69 97 06/06/16 04:29 22 96 Intake and Output 06/05/16 06/06/16 06/06/16 23:59 07:59 15:59 Intake Total 420 / 420 200 / 200 120 / 120 Output Total 400 / 400 0 / 0 Balance 20 200 / 200 120 / 120 Intake: IV Fluids 100 / 100 Maxipime 1,000 MG In 100 / 100 Dextrose 5% (Minibag+) 100 ML 100 ML @ 200 mls/ hr IVPB Q12HR COUNT INCLUDES THE [facility] Rx#: [id number] Oral 320 / 320 200 / 200 120 / 120 Output: Urine 400 / 400 0 / 0 Other: Meal Dinner Breakfast Percent of Meal Consumed 90% 100% Blood Glucose* 176 241 - General Appearance General appearance: well-developed, well-nourished, chronically ill, frail EENT: ATNC, PERRL Neck: supple Respiratory: wheezing, course breath sounds, rhonchi Cardiology: edema (2-3+ pitting ankle edema), regular rhythm, irregular rhythm, normal S1, normal S2 Gastrointestinal: normoactive bowel sounds, no tenderness, no guarding Integumentary: warm and dry Neurologic: no focal deficit, no asterixis, alert and oriented x3 Musculoskeletal: no erythema, no cyanosis, no clubbing Psychiatric: mood/affect appropriate, cooperative Results - Lab Results 06/06/16 05:58 06/06/16 05:58 Most recent lab results ABG pH TNP 05/31/16 03:59 ABG pCO2 TNP 05/31/16 03:59 ABG pO2 TNP 05/31/16 03:59 ABG HCO3 TNP 05/31/16 03:59 ABG O2 Saturation TNP 05/31/16 03:59 Calcium 7.6 mg/dL (8.6-10.8) L 06/06/16 05:58 Magnesium 2.4 mg/dL (1.6-2.6) 06/03/16 04:27 I reviewed the above autogenerated data. I also reviewed imaging, labs, meds, vitals, outpatient notes from Cardiology in [facility] and prior hospitalization notes. Consult Discharge Plan - Plan Referrals: Saud Potter MD [Primary Care Provider] -
--- NOTE | 2016-06-06 12:21 | Palliative Progress Note ---
Date of Encounter: 06/06/16 Time of Encounter: 11:00 - Assessment and plan (1) Dyspnea Current Visit: No Status: Acute Assessment and plan: Improving. Continue supplemental oxygen and bronchodilator therapy Qualifiers: Dyspnea type: unspecified Qualified Code(s): R06.00 - Dyspnea, unspecified (2) Goals of care, counseling/discussion Current Visit: Yes Status: Acute Assessment and plan: Phu Julien arrived from [place] and I provided a copy of the advanced directives and reviewed with the patient. Patient desires full aggressive care and wants to be mechanically ventilated and have a tracheostomy tube if unable to be exubated. Sons agree to desires and I further explained the complexities of these procedures given his advanced COPD stage. Patient reports wanting everything done to keep him alive. - Time Spent With Patient Total time spent is greater than 50% in coordination of care (as documented) at patient's floor/unit and/or counseling patient: - Subjective Interval history: Patient sitting up in chair and reports that he is breathing better. Sons at bedside. Phu Julien arrived from [place] last night and I updated him on the POC. - Constitutional Vitals: Abnormal lab results WBC 21.0 K/mcL (4.3-11.1) H 06/06/16 05:58 RBC 3.78 M/mcL (4.19-5.50) L 06/06/16 05:58 Hgb 12.7 g/dL (12.9-16.9) L 06/06/16 05:58 MCH 33.6 pg (28.0-33.3) H 06/06/16 05:58 Plt Count 113 K/mcL (140-400) L 06/06/16 05:58 Neutrophils # 19.4 K/mcL (1.6-8.9) H 06/06/16 05:58 Lymphocytes # 0.3 K/mcL (0.6-4.6) L 06/06/16 05:58 APTT 23.1 Seconds (26.0-36.0) L 05/29/16 13:40 BUN 102 mg/dL (8-26) H 06/06/16 05:58 Creatinine 1.61 mg/dL (0.72-1.25) H 06/06/16 05:58 Est GFR ( Amer) 52 (> 60) L 06/06/16 05:58 Est GFR (Non-Af Amer) 43 (> 60) L 06/06/16 05:58 BUN/Creatinine Ratio 63 (6-26) H 06/06/16 05:58 Glucose 228 mg/dL (70-99) H 06/06/16 05:58 POC Glucose 176 (58-89) H 06/05/16 22:38 Calculated Osmolality 331 (280-300) H 06/06/16 05:58 Calcium 7.6 mg/dL (8.6-10.8) L 06/06/16 05:58 Troponin I 0.17 ng/mL (0-0.03) H* 05/30/16 08:30 B-Natriuretic Peptide 886 pg/mL (0-100) H 05/29/16 13:40 TSH 0.103 mcIU/mL (0.350-4.840) L 06/03/16 04:27 - Head Head exam: Present: atraumatic, normal inspection, normocephalic - Eye Eye exam: Present: PERRL Pupils: Present: PERRL - ENT ENT exam: Present: mucous membranes moist - Neck Neck exam: Present: full ROM - Respiratory Respiratory exam: Present: prolonged expiratory phase, rhonchi - Expanded Respiratory Exam Location: rhonchi: Left, Right, Upper, Lower - Cardiovascular Cardiovascular exam: Present: irregular rhythm, +S1, +S2 - Expanded Cardiovascular Exam Peripheral pulses: 1+: Femoral (L) PM, Femoral (R) PM, Posterior Tibialis (L), Posterior Tibialis (R), Dorsalis Pedis (L) PM (pedal edema 3+), Dorsalis Pedis ( R) PM (pedal edema 3+), 2+: Carotid (L) PM, Carotid (R) PM, Radial (L), Radial ( R) - GI/Abdominal GI/Abdominal exam: Present: normal bowel sounds - Rectal Rectal exam: Present: deferred - Extremities Exam Extremities exam: Present: full ROM - Back Exam Back exam: Present: full ROM - Neurological Exam Neurological exam: Present: alert, CN II-XII intact, oriented X3 - Psychiatric Psychiatric exam: Present: normal affect Palliative Quality Palliative Quality: Screen for Code Status: Yes, Screen for Goals of Care: Yes, Screen for Pain: Yes, If Pain Regimen Started, Initiate Bowel Regimen: NA, Screen for Nausea/Vomitting: Yes Code Status: 06/01/16 12:40 CODE [Resuscitation Status: Active] [RES] Routine Comment: Resuscitation Status: Full Code - Labs CBC & Chem 7: 06/07/16 06:41 06/07/16 06:41 Labs: Laboratory Results - last 24 hr 06/05/16 06/05/16 06/06/16 15:36 22:38 05:58 WBC 21.0 H RBC 3.78 L Hgb 12.7 L Hct 37.5 MCV 99.2 MCH 33.6 H MCHC 33.9 RDW 13.3 Plt Count 113 L MPV 10.2 Immature Gran % 2.6 Seg Neutrophils % 92.3 Lymphocytes % 1.2 Monocytes % 3.8 Eosinophils % 0.0 Basophils % 0.1 Neutrophils # 19.4 H Lymphocytes # 0.3 L Monocytes # 0.8 Eosinophils # 0.0 Basophils # 0.0 Sodium Potassium Chloride Carbon Dioxide BUN Creatinine Est GFR ( Amer) Est GFR (Non-Af Amer) BUN/Creatinine Ratio Glucose POC Glucose 154 H 176 H Calculated Osmolality Calcium 06/06/16 05:58 WBC RBC Hgb Hct MCV MCH MCHC RDW Plt Count MPV Immature Gran % Seg Neutrophils % Lymphocytes % Monocytes % Eosinophils % Basophils % Neutrophils # Lymphocytes # Monocytes # Eosinophils # Basophils # Sodium 141 Potassium 4.0 Chloride 106 Carbon Dioxide 25 BUN 102 H Creatinine 1.61 H Est GFR ( Amer) 52 L Est GFR (Non-Af Amer) 43 L BUN/Creatinine Ratio 63 H Glucose 228 H POC Glucose Calculated Osmolality 331 H Calcium 7.6 L - ABG Interpretation ABG results: ABG ABG pH TNP 05/31/16 03:59 ABG pCO2 TNP 05/31/16 03:59 ABG pO2 TNP 05/31/16 03:59 ABG O2 Saturation TNP 05/31/16 03:59 PT/INR, D-dimer PT 11.1 Seconds (9.4-12.1) 05/29/16 13:40 Consult Discharge Plan - Plan Referrals: Saud Potter MD [Primary Care Provider] -
--- NOTE | 2016-06-06 14:14 | Cardiology Progress Note ---
Date of Encounter: 06/06/16 Time of Encounter: 09:30 Assessment and Plan (1) Ventricular tachycardia, nonsustained Current Visit: Yes Status: Acute Small runs of NSVT seen during hospital stay. Longest was 9 beat run seen over last 24 hours. Repeat TTE shows EF at 40-45%. BB increased. Potassium and magnesium are normal. Continue to monitor. (2) Atrial fibrillation with RVR Current Visit: Yes Status: Acute Likely aggravated by COPD exacerbation. H/o PAF. Heart rate continue to be elevated. Avg HR was 76 bpm. HR 90-110 during my exam. On cardizem and Lopressor. Increase cardizem CD to 180 mg BID. Continue to titrate as needed. CHADS, VASc= 2. Pt declines to take warfarin. CVA risk discussed and he was agreeable to NOAc. NOAC not preferable in pt with valvular disease, but he is adamant about not taking coumadin. He reported today that he likes to drink 5 beers a day plans to decrease alcohol use. ETOH cessation discussed. TSH low, appreciate hospitalist input. Cardiology will sign off. We will schedule out-pt f/u in two weeks. (3) CAD (coronary artery disease) Current Visit: Yes Status: Chronic H/o of remote PCI. Continue asa, statin, and bb. Qualifiers: Coronary Disease-Associated Artery/Lesion type: lummi artery [place] vs. transplanted heart: lummi heart Associated angina: without angina Qualified Code(s): I25.10 - Atherosclerotic heart disease of lummi coronary artery without angina pectoris (4) History of aortic valve replacement with bioprosthetic valve Current Visit: No Status: Chronic Discussion w patient/family: The assessment and plan as outlined above was discussed with the patient and/or family members who expressed understanding and agreement. All questions were answered. Thank you for involving us in the care of your patient. Please call with any questions. Subjective Principal diagnosis: Acute respiratory failure Interval history: No new complaints. Nosebleed has resolved. Objective Vital Signs, Last 4 Hours Temp Pulse Resp BP Pulse Ox 06/06/16 12:02 97.6 F 85 20 138/77 96 06/06/16 11:36 18 97 General: Conversant, No Apparent Distress HEENT: Atraumatic, Normocephaly, Mucus Membranes Moist Neck: No JVD, Normal carotid pulses Cardiac: Other (Irregularly irregular) Lungs: Other (Wheezes scattered throughout, respirations easy) Neuro: Alert and responsive, No focal deficits noted Abdomen: Soft, Non-Tender Skin: No rashes noted on visualized skin Musculoskeletal: No Chest Wall Tenderness Extremities: No Clubbing, No Cyanosis, Normal Pulses, Other (Bilateral pedal edema) Results 06/06/16 05:58 06/06/16 05:58 Lab Results 06/06/16 06/06/16 05:58 05:58 WBC 21.0 H Hgb 12.7 L Hct 37.5 Plt Count 113 L Sodium 141 Potassium 4.0 Chloride 106 Carbon Dioxide 25 BUN 102 H Creatinine 1.61 H Glucose 228 H Calcium 7.6 L Consult Discharge Plan - Plan Referrals: Saud Potter MD [Primary Care Provider] -
[2016-06-06] MEDS: levoFLOXacin 750 MG TABLET PO SCH (17:00)
[2016-06-06] MEDS ORDERED: methylPREDNISolone 125 MG/2 ML VIAL IV SCH (18:00)
--- NOTE | 2016-06-06 21:14 | Internal Med Progress Note ---
Date of Encounter: 06/06/16 Time of Encounter: 14:00 - Assessment and plan (1) COPD exacerbation Current Visit: No Status: Acute Assessment and plan: BUN and creatinine going up, patient's respiratory status is improving, I will start tapering steroids. CT of the chest showed no acute disease in the chest. We will continue with DuoNeb, continue with antibiotics and steroids. Plan to taper steroids and switched to oral antibiotics in 1-2 days of continued improvement. Worsening SOB and cough and congestion. will get CT chest, increase duoneb to q4h. Add Cefepime, I suspect pseudomonas given chr lung disease w/ recurrent exacerbation, IV steroids, inhaled bronchodilators. IV antibiotics. Oxygen by nasal cannula. Smoking cessation counseling reinforced today. (2) Hypertension Current Visit: No Status: Chronic Assessment and plan: Stable Qualifiers: Hypertension type: essential hypertension Qualified Code(s): I10 - Essential (primary) hypertension (3) DVT prophylaxis Current Visit: No Status: Acute Assessment and plan: On Eliquis (4) Acute respiratory failure with hypoxia Current Visit: Yes Status: Acute Assessment and plan: Oxygen via nasal cannula. Palliative consult for age, advanced COPD w/ respiratory failure. (5) Atrial fibrillation with RVR Current Visit: Yes Status: Acute Assessment and plan: Atrial fibrillation with RVR, rate difficult to control, still 90-110. Continue metoprolol, snd Cardizem drip. Appreciate cardiology recs. (6) Oral thrush Current Visit: Yes Status: Acute Assessment and plan: oral nystatin (7) Acute kidney injury superimposed on CKD Current Visit: Yes Status: Acute Assessment and plan: BUN and creatinine worsening. Stop Bumex. Consult nephrology. - Subjective Interval history: 06/06 patient reports improved shortness of breath, continues to have productive cough. BUN getting worse from yesterday. 06/05/2016: The patient says her shortness of breath is getting better, still has productive cough. 06/04: pt more SOB says w/ more congestion sice yesterday, soome oral pain, no N/ V. Shortness of breath has improved over the last 48 hours. He reports associated dry cough, no chest pain or fever. Denies nausea vomiting diarrhea depression and anxiety and seizures. He has had an episode of ventricular tachycardia last night during which he reported no symptoms. - Constitutional Vitals: Temp Pulse Resp BP Pulse Ox 97.8 F 101 17 134/72 97 06/06/16 20:58 06/06/16 20:58 06/06/16 20:58 06/06/16 20:58 06/06/16 20:58 General appearance: Present: A&O X 3 - Eye Eye exam: Present: PERRL, conjuntiva pink, sclera anicteric Pupils: Present: PERRL - Respiratory Respiratory exam: Present: wheezes. Absent: accessory muscle use, rales, rhonchi - Cardiovascular Cardiovascular exam: Present: irregular rhythm, +S1, +S2 - Extremities Exam Extremities exam: Present: pedal edema, warm, radial pulses palpable and symetrical. Absent: calf tenderness, cyanotic - Skin Skin exam: Present: dry, intact Internal Medicine: Result - Labs CBC & Chem 7: 06/06/16 05:58 06/06/16 05:58 Labs: Short CBC 06/06/16 Range/Units 05:58 WBC 21.0 H (4.3-11.1) K/mcL Hgb 12.7 L (12.9-16.9) g/dL Hct 37.5 (37.5-50.1) % Plt Count 113 L (140-400) K/mcL Neutrophils # 19.4 H (1.6-8.9) K/mcL BMP 06/06/16 05:58 Sodium 141 Potassium 4.0 Chloride 106 Carbon Dioxide 25 BUN 102 H Creatinine 1.61 H Glucose 228 H Calcium 7.6 L - ABG Interpretation ABG results: ABG ABG pH TNP 05/31/16 03:59 ABG pCO2 TNP 05/31/16 03:59 ABG pO2 TNP 05/31/16 03:59 ABG O2 Saturation TNP 05/31/16 03:59 PT/INR, D-dimer PT 11.1 Seconds (9.4-12.1) 05/29/16 13:40 - Impressions Impressions Retroperitoneum Ultrasound 06/06/16 12:30 IMPRESSION: 1. Two simple right renal cysts. The kidneys are otherwise normal bilaterally, without evidence of a renal calculus or hydronephrosis. 2. Normal appearance of the urinary bladder. The patient was unable void for the study. 3. Mild prostatomegaly. D/ / 06/06/2016 16:00:37 Zay Rowe MD / camacho Interpreting Provider: Zay Rowe MD Consult Discharge Plan - Plan Referrals: Saud Potter MD [Primary Care Provider] -
[2016-06-06] MEDS: Diltiazem CD (24hr) 180 MG CAPSULE PO SCH (21:27)
[2016-06-06] MEDS: MethylPREDNISolone 40 MG/ML VIAL IVP SCH (22:30)
[2016-06-07] MEDS: Ipratropium/Albuterol Neb 3 ML IH SCH ×6 (04:09→23:33)
[2016-06-07] MEDS: Cefepime HCl 1,000 MG in D5% in Water (Mini-Bag+) 100 ML IVPB SCH ×2 (05:41→16:23)
[2016-06-07] MEDS: APIXABAN 5 MG TABLET PO SCH ×2 (05:43→16:25)
[2016-06-07 07:28] LABS: Basophils % 0.2 %; Hematocrit 36.9 % (37.5-50.1); Hemoglobin 12.7 g/dL (12.9-16.9); Immature Granulocytes % 3.9 % (0-4); Lymphocytes # 0.2 K/mcL (0.6-4.6); Lymphocytes % 1.2 %; Mean Corpuscular HGB Conc 34.4 g/dL (31.6-35.5); Mean Corpuscular Hemoglobin 33.8 pg (28.0-33.3); Mean Corpuscular Volume 98.1 fL (83.0-100.0); Mean Platelet Volume 10.3 fL (9.4-12.4); Monocytes # 0.8 K/mcL (0.0-1.3); Neutrophils # 18.5 K/mcL (1.6-8.9); Platelet Count 111 K/mcL (140-400); Red Blood Count 3.76 M/mcL (4.19-5.50); Red Cell Distribution Width 13.2 % (11.5-14.5); Segmented Neutrophils % 90.7 %
[2016-06-07 08:30] LABS: Albumin 2.6 g/dL (3.5-5.0); Calcium 7.4 mg/dL (8.6-10.8); Phosphorous 4.3 mg/dL (2.3-4.7)
[2016-06-07] MEDS: Insulin LISPRO 300 UNITS/3 ML VIAL SQ SCH ×4 (09:05→21:32)
[2016-06-07] MEDS: Diltiazem CD (24hr) 180 MG CAPSULE PO SCH ×2 (09:06→21:31)
[2016-06-07] MEDS: MethylPREDNISolone 40 MG/ML VIAL IVP SCH ×2 (09:06→21:32)
[2016-06-07] MEDS: Nystatin SUSP 5 ML UD.LIQ PO SCH ×4 (09:06→21:32)
[2016-06-07] MEDS: Aspirin Enteric Coated 81 MG Tablet PO SCH (09:06)
[2016-06-07 11:16] LABS: Hepatitis B Surface Antigen Nonreactive (Nonreactive)
--- NOTE | 2016-06-07 19:28 | Internal Med Progress Note ---
Date of Encounter: 06/07/16 Time of Encounter: 19:25 - Assessment and plan (1) COPD exacerbation Current Visit: No Status: Acute Assessment and plan: BUN and creatinine going up, patient's respiratory status is improving, I will start tapering steroids. CT of the chest showed no acute disease in the chest. We will continue with DuoNeb, continue with antibiotics and steroids. Plan to taper steroids and switched to oral antibiotics in 1-2 days of continued improvement. Worsening SOB and cough and congestion. will get CT chest, increase duoneb to q4h. Add Cefepime, I suspect pseudomonas given chr lung disease w/ recurrent exacerbation, IV steroids, inhaled bronchodilators. IV antibiotics. Oxygen by nasal cannula. Smoking cessation counseling reinforced today. (2) Hypertension Current Visit: No Status: Chronic Assessment and plan: Stable Qualifiers: Hypertension type: essential hypertension Qualified Code(s): I10 - Essential (primary) hypertension (3) DVT prophylaxis Current Visit: No Status: Acute Assessment and plan: On Eliquis (4) Acute respiratory failure with hypoxia Current Visit: Yes Status: Acute Assessment and plan: Oxygen via nasal cannula. Palliative consult for age, advanced COPD w/ respiratory failure. (5) Atrial fibrillation with RVR Current Visit: Yes Status: Acute Assessment and plan: Atrial fibrillation with RVR, better rate control now wall with metoprolol and oral diltiazem. Appreciate cardiology recs. (6) Oral thrush Current Visit: Yes Status: Acute Assessment and plan: oral nystatin (7) Acute kidney injury superimposed on CKD Current Visit: Yes Status: Acute Assessment and plan: BUN and creatinine worsening. Stop Bumex. I appreciate nephrology recommendations, continue to hold Bumex. Patient has difficulty urinating for large residuals. Kidney ultrasound shows no hydronephrosis and a large prostate. I will start Flomax and we will place a Byrd for urinary obstruction. - Subjective Interval history: 06/07/2016: Continues to report improved shortness of breath, however has decreased exercise tolerance, continues to have productive cough. Reports lower extremity swelling which has improved over the course of the last week. 06/06 patient reports improved shortness of breath, continues to have productive cough. BUN getting worse from yesterday. 06/05/2016: The patient says her shortness of breath is getting better, still has productive cough. 06/04: pt more SOB says w/ more congestion sice yesterday, soome oral pain, no N/ V. Shortness of breath has improved over the last 48 hours. He reports associated dry cough, no chest pain or fever. Denies nausea vomiting diarrhea depression and anxiety and seizures. He has had an episode of ventricular tachycardia last night during which he reported no symptoms. - Constitutional Vitals: Temp Pulse Resp BP Pulse Ox 98.0 F 84 17 94/82 96 06/07/16 16:08 06/07/16 16:08 06/07/16 16:22 06/07/16 16:08 06/07/16 16:22 General appearance: Present: A&O X 3 - Eye Eye exam: Present: PERRL, conjuntiva pink, sclera anicteric Pupils: Present: PERRL - Respiratory Respiratory exam: Present: wheezes. Absent: accessory muscle use, rales, rhonchi - Cardiovascular Cardiovascular exam: Present: irregular rhythm, +S1, +S2. Absent: diastolic murmur, gallop, rubs, systolic murmur - GI/Abdominal GI/Abdominal exam: Present: normal bowel sounds, soft, no peritoneal signs. Absent: distended, tenderness - Extremities Exam Extremities exam: Present: pedal edema, warm, radial pulses palpable and symetrical. Absent: calf tenderness, cyanotic - Skin Skin exam: Present: dry, intact Internal Medicine: Result - Labs CBC & Chem 7: 06/07/16 06:41 06/07/16 06:41 Labs: Short CBC 06/07/16 Range/Units 06:41 WBC 20.4 H (4.3-11.1) K/mcL Hgb 12.7 L (12.9-16.9) g/dL Hct 36.9 L (37.5-50.1) % Plt Count 111 L (140-400) K/mcL Neutrophils # 18.5 H (1.6-8.9) K/mcL BMP 06/07/16 06:41 Sodium 140 Potassium 4.0 Chloride 105 Carbon Dioxide 23 BUN 110 H Creatinine 1.61 H Glucose 174 H Calcium 7.4 L Liver Function 06/07/16 Range/Units 06:41 Albumin 2.6 L (3.5-5.0) g/dL - ABG Interpretation ABG results: ABG ABG pH TNP 05/31/16 03:59 ABG pCO2 TNP 05/31/16 03:59 ABG pO2 TNP 05/31/16 03:59 ABG O2 Saturation TNP 05/31/16 03:59 PT/INR, D-dimer PT 11.1 Seconds (9.4-12.1) 05/29/16 13:40 - Impressions Impressions Retroperitoneum Ultrasound 06/06/16 12:30 IMPRESSION: 1. Two simple right renal cysts. The kidneys are otherwise normal bilaterally, without evidence of a renal calculus or hydronephrosis. 2. Normal appearance of the urinary bladder. The patient was unable to void for the study. 3. Mild prostatomegaly. D/ / 06/06/2016 16:00:37 Zay Rowe MD / camacho Interpreting Provider: Zay Rowe MD Consult Discharge Plan - Plan Referrals: Saud Potter MD [Primary Care Provider] -
[2016-06-08] MEDS: Ipratropium/Albuterol Neb 3 ML IH SCH ×6 (04:26→23:20)
[2016-06-08] MEDS: APIXABAN 5 MG TABLET PO SCH ×2 (05:18→16:27)
[2016-06-08] MEDS: Cefepime HCl 1,000 MG in D5% in Water (Mini-Bag+) 100 ML IVPB SCH ×2 (05:18→16:20)
[2016-06-08 05:19] LABS: Lymphocytes % 1.2 %; Mean Corpuscular Hemoglobin 33.9 pg (28.0-33.3); Red Cell Distribution Width 13.1 % (11.5-14.5)
[2016-06-08 05:21] LABS: Basophils # 0.1 K/mcL (0.0-0.2); Basophils % 0.3 %; Hematocrit 33.4 % (37.5-50.1); Hemoglobin 11.6 g/dL (12.9-16.9); Immature Granulocytes % 3.7 % (0-4); Immature Platelets 2.8 % (1.1-6.1); Lymphocytes # 0.2 K/mcL (0.6-4.6); Mean Corpuscular HGB Conc 34.7 g/dL (31.6-35.5); Mean Corpuscular Volume 97.7 fL (83.0-100.0); Mean Platelet Volume 10.3 fL (9.4-12.4); Monocytes # 0.7 K/mcL (0.0-1.3); Monocytes % 3.6 %; Neutrophils # 16.6 K/mcL (1.6-8.9); Red Blood Count 3.42 M/mcL (4.19-5.50); Segmented Neutrophils % 91.2 %
[2016-06-08 05:37] LABS: Calcium 7.6 mg/dL (8.6-10.8); Potassium 4.4 mEq/L (3.5-4.5)
[2016-06-08 05:50] LABS: Platelet Count 95 K/mcL (140-400)
[2016-06-08 05:51] LABS: Platelet Estimate Decreased (Normal)
[2016-06-08] MEDS: Menthol 9.1 MG LOZENGE PO PRN (06:06)
[2016-06-08] MEDS: Insulin LISPRO 300 UNITS/3 ML VIAL SQ SCH ×4 (08:06→21:44)
[2016-06-08] MEDS: Nystatin SUSP 5 ML UD.LIQ PO SCH ×4 (08:06→20:12)
[2016-06-08] MEDS: MethylPREDNISolone 40 MG/ML VIAL IVP SCH ×2 (08:07→20:12)
[2016-06-08] MEDS: Aspirin Enteric Coated 81 MG Tablet PO SCH (08:07)
[2016-06-08] MEDS: Diltiazem CD (24hr) 180 MG CAPSULE PO SCH ×2 (08:07→20:12)
--- NOTE | 2016-06-08 09:03 | Event Note ---
Date of Encounter: 06/08/16 Time of Encounter: 09:00 Patient states he feels he is improving slowly. Son was up from [place] and saw pt this weekend. Patient desires full aggressive care and wants to remain full code. Over the weekend, pt verbalized his goals to family and would not be opposed to tracheostomy and transmission tester ventilation if required to remain alive. Spoke with pt re: short term rehab which he is refusing. Agreeable to HH on discharge. He states his son will be here from [place] 7-10 days and will be staying with him. Palliative not currently managing any symptoms and will sign off. Please re-consult if needed.
[2016-06-08 10:16] LABS: Hepatitis A Antibody IgM Nonreactive (Nonreactive); Hepatitis B Core IgM Nonreactive (Nonreactive); Hepatitis C Virus Antibody Nonreactive (Nonreactive)
[2016-06-08 12:06] LABS: Uric Acid 14.4 mg/dL (3.5-7.2)
[2016-06-08 13:49] LABS: Bilirubin,Urine Negative (Negative); Blood,Urine Large (Negative); Clarity,Urine Cloudy (Clear); Color,Urine Yellow (Yellow); Glucose,Urine (UA) Normal (Normal); Ketones,Urine Negative (Negative); Leukocyte Esterase,Urine Small (Negative); Nitrite,Urine Negative (Negative); Protein,Urine Trace mg/dL (Neg-Trace); Specific Gravity,Urine 1.019 (1.010-1.025); Urobilinogen,Urine Normal (Normal)
[2016-06-08 13:52] LABS: Bacteria,Urine None Seen per hpf (None-Few); Hyaline Casts,Urine None Seen per lpf (None-Few); RBC,Urine 50-100 per hpf (0-3); Squamous Epithelial Cell,Urine None Seen per lpf (None-Few)
[2016-06-08 14:14] LABS: Creatinine,Urine 58 mg/dL; Sodium, Urine < 20.0 mEq/L
--- NOTE | 2016-06-08 15:17 | Internal Med Progress Note ---
Date of Encounter: 06/08/16 Time of Encounter: 15:15 - Assessment and plan (1) COPD exacerbation Current Visit: No Status: Acute Assessment and plan: Continue tapering steroids. Continue with DuoNeb times. BUN and creatinine going up, patient's respiratory status is improving, I will start tapering steroids. CT of the chest showed no acute disease in the chest. We will continue with DuoNeb, continue with antibiotics and steroids. Plan to taper steroids and switched to oral antibiotics in 1-2 days of continued improvement. Worsening SOB and cough and congestion. will get CT chest, increase duoneb to q4h. Add Cefepime, I suspect pseudomonas given chr lung disease w/ recurrent exacerbation, IV steroids, inhaled bronchodilators. IV antibiotics. Oxygen by nasal cannula. Smoking cessation counseling reinforced today. (2) Hypertension Current Visit: No Status: Chronic Assessment and plan: Stable Qualifiers: Hypertension type: essential hypertension Qualified Code(s): I10 - Essential (primary) hypertension (3) DVT prophylaxis Current Visit: No Status: Acute Assessment and plan: On Eliquis (4) Acute respiratory failure with hypoxia Current Visit: Yes Status: Acute Assessment and plan: Oxygen via nasal cannula. Palliative consult for age, advanced COPD w/ respiratory failure. (5) Atrial fibrillation with RVR Current Visit: Yes Status: Acute Assessment and plan: Atrial fibrillation with RVR, better rate control now wall with metoprolol and oral diltiazem. Appreciate cardiology recs. Started on Eliquis by cardiology. (6) Oral thrush Current Visit: Yes Status: Acute Assessment and plan: oral nystatin (7) Acute kidney injury superimposed on CKD Current Visit: Yes Status: Acute Assessment and plan: BUN and creatinine worsening. Stop Bumex. I appreciate nephrology recommendations, continue to hold Bumex. Patient has difficulty urinating for large residuals. Kidney ultrasound shows no hydronephrosis and a large prostate. I will start Flomax and we will place a Byrd for urinary obstruction. (8) Pressure ulcer of both heels Current Visit: Yes Status: Acute Assessment and plan: Elevated legs. Consult wound care. Consult podiatry for overgrown toenails which are curving inwards. Resume Lasix as soon as safe to decrease the edema. - Subjective Interval history: 06/08/2016: Patient has been urinary retention and Byrd catheter placed. He was started on Flomax. He reports slight improvement in breathing, no chest pain, continued cough productive of sputum. He has increasing lower extremity edema. 06/07/2016: Continues to report improved shortness of breath, however has decreased exercise tolerance, continues to have productive cough. Reports lower extremity swelling which has improved over the course of the last week. 06/06 patient reports improved shortness of breath, continues to have productive cough. BUN getting worse from yesterday. 06/05/2016: The patient says her shortness of breath is getting better, still has productive cough. 06/04: pt more SOB says w/ more congestion sice yesterday, soome oral pain, no N/ V. Shortness of breath has improved over the last 48 hours. He reports associated dry cough, no chest pain or fever. Denies nausea vomiting diarrhea depression and anxiety and seizures. He has had an episode of ventricular tachycardia last night during which he reported no symptoms. - Constitutional Vitals: Temp Pulse Resp BP Pulse Ox 97.9 F 86 16 123/69 95 06/08/16 14:59 06/08/16 14:59 06/08/16 15:01 06/08/16 14:59 06/08/16 15:01 General appearance: Present: A&O X 3 - Eye Eye exam: Present: PERRL, conjuntiva pink, sclera anicteric Pupils: Present: PERRL - Cardiovascular Cardiovascular exam: Present: RRR, +S1, +S2. Absent: diastolic murmur, gallop, rubs, systolic murmur - GI/Abdominal GI/Abdominal exam: Present: normal bowel sounds, soft, no peritoneal signs. Absent: distended, tenderness - Extremities Exam Extremities exam: Present: pedal edema (Large 3+ lower extremity pitting edema) , warm, radial pulses palpable and symetrical. Absent: calf tenderness, cyanotic - Skin Additional comments: b/l heel stage 2 ulcers, seeping clear fluid. Internal Medicine: Result - Labs CBC & Chem 7: 06/08/16 04:55 06/08/16 04:55 Labs: Short CBC 06/08/16 Range/Units 04:55 WBC 18.2 H (4.3-11.1) K/mcL Hgb 11.6 L (12.9-16.9) g/dL Hct 33.4 L (37.5-50.1) % Plt Count 95 L (140-400) K/mcL Neutrophils # 16.6 H (1.6-8.9) K/mcL BMP 06/08/16 04:55 Sodium 142 Potassium 4.4 Chloride 107 Carbon Dioxide 26 BUN 119 H Creatinine 1.59 H Glucose 153 H Calcium 7.6 L Urine 06/08/16 Range/Units 13:25 Urine Color Yellow (Yellow) Urine Clarity Cloudy A (Clear) Urine pH 6.0 (5.0-8.0) pH Units Ur Specific [place] 1.019 (1.010-1.025) Urine Protein Trace (Neg-Trace) mg/dL Urine Glucose (UA) Normal (Normal) mg/dL - ABG Interpretation ABG results: ABG ABG pH TNP 05/31/16 03:59 ABG pCO2 TNP 05/31/16 03:59 ABG pO2 TNP 05/31/16 03:59 ABG O2 Saturation TNP 05/31/16 03:59 PT/INR, D-dimer PT 11.1 Seconds (9.4-12.1) 05/29/16 13:40 Consult Discharge Plan - Plan Referrals: Saud Potter MD [Primary Care Provider] - Sudha Benton DO [Partnered Physician] - 06/23/16 1:10 pm
[2016-06-08] MEDS: GuaiFENesin Liq 200 MG/10 ML UDC PO SCH ×2 (16:20→23:09)
[2016-06-08] MEDS: levoFLOXacin 750 MG TABLET PO SCH (16:20)
--- NOTE | 2016-06-08 16:50 | Nephrology Progress Note ---
<Kailyn Reyes - Last Filed: 06/08/16 16:47> Date of Encounter: 06/08/16 Time of Encounter: 10:30 - Assessment and Plan (1) Azotemia Current Visit: Yes Status: Acute Due to steroids for COPD exacerbation. Continue to wean steroids as tolerated ( by primary team). Continue to hold Bumex. Oral fluids only (no IVF). CKD lab analysis pending. Urine studies ordered today. Continue renal protective strategy. (2) Acute kidney injury Current Visit: No Status: Acute (3) CKD (chronic kidney disease), stage III Current Visit: Yes Status: Chronic (4) Acute exacerbation of chronic obstructive airways disease Current Visit: Yes Status: Acute continue to taper steroids as tolerated Subjective Principal diagnosis: increased BUN Interval history: Patient seen and examined. No signs of uremia. Objective - Vital Signs Vital signs: Vital Signs Temp Pulse Resp BP Pulse Ox 06/08/16 15:01 16 95 06/08/16 15:00 16 95 06/08/16 14:59 97.9 F 86 16 123/69 100 06/08/16 11:51 98.1 F 78 16 120/53 95 06/08/16 11:00 16 96 06/08/16 07:39 18 92 L 06/08/16 06:48 97.4 F L 85 16 125/63 95 06/08/16 06:01 97.4 F L 06/08/16 05:27 84 14 127/66 96 06/08/16 04:27 18 90 L 06/07/16 23:34 22 89 L 06/07/16 21:12 18 89 L 06/07/16 20:05 98.1 F 88 20 133/71 96 Intake and Output 06/08/16 06/08/16 06/08/16 07:59 15:59 23:59 Intake Total 220 / 220 240 / 240 Output Total 700 / 700 650 / 650 Balance -480 / -480 -410 / -410 Intake: IV Fluids 100 / 100 Maxipime 1,000 MG In 100 / 100 Dextrose 5% (Minibag+) 100 ML 100 ML @ 200 mls/ hr IVPB Q12HR PENDING SALE TO [facility] Rx#: [id number] Oral 120 / 120 240 / 240 Output: Urine 700 / 700 Catheter 650 / 650 Other: Meal Breakfast Percent of Meal Consumed 50% Stool Size Small Stool Consistency soft formed Stool Color Black # Bowel Movements 1 Blood Glucose* [phone] - General Appearance General appearance: Present: well-developed, well-nourished, appears started age Neck: Present: supple Respiratory: Present: course breath sounds (throughout) Cardiology: Present: no murmurs, no rub, no gallops, no edema, regular rate, regular rhythm, normal S1, normal S2 Integumentary: Present: warm and dry Neurologic: Present: no focal deficit, alert and oriented x3 Musculoskeletal: Present: no deformities, no cyanosis, no clubbing Psychiatric: Present: mood/affect appropriate, cooperative - Lab 06/08/16 04:55 06/08/16 04:55 Most recent lab results ABG pH TNP 05/31/16 03:59 ABG pCO2 TNP 05/31/16 03:59 ABG pO2 TNP 05/31/16 03:59 ABG HCO3 TNP 05/31/16 03:59 ABG O2 Saturation TNP 05/31/16 03:59 Calcium 7.6 mg/dL (8.6-10.8) L 06/08/16 04:55 Phosphorus 4.3 mg/dL (2.3-4.7) 06/07/16 06:41 Magnesium 2.4 mg/dL (1.6-2.6) 06/03/16 04:27 Urine Creatinine 58 mg/dL 06/08/16 13:25 Urine Sodium < 20.0 mEq/L 06/08/16 13:25 Consult Discharge Plan - Plan Referrals: Saud Potter MD [Primary Care Provider] - 06/19/16 3:00 pm Sudha Benton DO [Partnered Physician] - 06/23/16 1:10 pm <Nick Aceves - Last Filed: 06/11/16 15:43> Date of Encounter: 06/08/16 Objective - Vital Signs Vital signs: Vital Signs Temp Pulse Resp BP Pulse Ox 06/11/16 12:12 97.7 F 101 18 103/72 95 06/11/16 11:09 18 99 06/11/16 10:10 97.3 F L 104 14 103/54 99 06/11/16 04:30 24 93 L 06/11/16 04:00 110 17 130/96 96 06/10/16 23:43 22 96 06/10/16 22:00 106 24 158/78 97 06/10/16 20:33 24 92 L 06/10/16 16:16 18 98 06/10/16 16:11 98.6 F 94 16 140/63 100 Intake and Output 06/10/16 06/11/16 06/11/16 23:59 07:59 15:59 Intake Total 100 / 100 0 / 0 530 / 530 Output Total 600 / 600 700 / 700 Balance -500 / -500 -700 / -700 530 / 530 Intake: IV Fluids 100 / 100 Flexbumin 25 gm In 100 ml 100 / 100 @ 60 mls/hr IVPB Q12HR [facility] Rx#:[id number] Oral 0 / 0 0 / 0 480 / 480 Free Water 50 / 50 Output: Urine 0 / 0 Catheter 600 / 600 700 / 700 Other: Meal refused Breakfast Percent of Meal Consumed 0% 80% Weight 79.2 kg Blood Glucose* 105 140 375 Patient Weight 06/11/16 23:59 Weight 79.2 kg - Lab 06/11/16 00:38 06/11/16 00:38 Most recent lab results ABG pH TNP 05/31/16 03:59 ABG pCO2 TNP 05/31/16 03:59 ABG pO2 TNP 05/31/16 03:59 ABG HCO3 TNP 05/31/16 03:59 ABG O2 Saturation TNP 05/31/16 03:59 Calcium 8.4 mg/dL (8.6-10.8) L 06/11/16 00:38 Phosphorus 4.3 mg/dL (2.3-4.7) 06/07/16 06:41 Magnesium 2.4 mg/dL (1.6-2.6) 06/03/16 04:27 Urine Creatinine 58 mg/dL 06/08/16 13:25 Urine Sodium < 20.0 mEq/L 06/08/16 13:25 - Attending Attestation I examined this patient and my medical decision-making was reviewed with the DIRECTOR OF PRODUCT MANAGEMENT/PA/Advanced Practice Nurse/Resident Physician. I agree with the documented findings, disposition and treatment plan as described except to the extent set forth below. Pt seen and examined with records reviewed. SCr remaining stable off bumex. BUN still elevated out of proportion to SCr likely due to steroids. Pete defer steroid taper per primary team. Encouraged po fluids in the meantime
--- NOTE | 2016-06-08 17:06 | Event Note ---
Date of Encounter: 06/08/16 Time of Encounter: 17:00 - Cardiology Event Note Eliquis started over weekend. Sent to pharmacy through [facility] for pember[place] check. If not affordable he would need switched to coumadin if patient would agree. Pt adamant that he does not take coumadin.
--- NOTE | 2016-06-08 22:37 | Internal Med Progress Note ---
Date of Encounter: 06/08/16 Time of Encounter: 10:00 - Assessment and plan (1) COPD exacerbation Current Visit: No Status: Acute (2) Hypertension Current Visit: No Status: Chronic Qualifiers: Hypertension type: essential hypertension Qualified Code(s): I10 - Essential (primary) hypertension (3) DVT prophylaxis Current Visit: No Status: Acute (4) Acute respiratory failure with hypoxia Current Visit: Yes Status: Acute (5) Atrial fibrillation with RVR Current Visit: Yes Status: Acute (6) Oral thrush Current Visit: Yes Status: Acute (7) Acute kidney injury superimposed on CKD Current Visit: Yes Status: Acute - Subjective Interval history: 06/07/2016: Continues to report improved shortness of breath, however has decreased exercise tolerance, continues to have productive cough. Reports lower extremity swelling which has improved over the course of the last week. 06/06 patient reports improved shortness of breath, continues to have productive cough. BUN getting worse from yesterday. 06/05/2016: The patient says her shortness of breath is getting better, still has productive cough. 06/04: pt more SOB says w/ more congestion sice yesterday, soome oral pain, no N/ V. Shortness of breath has improved over the last 48 hours. He reports associated dry cough, no chest pain or fever. Denies nausea vomiting diarrhea depression and anxiety and seizures. He has had an episode of ventricular tachycardia last night during which he reported no symptoms. - Constitutional Vitals: Temp Pulse Resp BP Pulse Ox 97.9 F 86 16 123/69 99 06/08/16 14:59 06/08/16 14:59 06/08/16 19:36 06/08/16 14:59 06/08/16 19:36 General appearance: Present: A&O X 3 Internal Medicine: Result - Labs CBC & Chem 7: 06/08/16 04:55 06/08/16 04:55 Labs: Short CBC 06/08/16 Range/Units 04:55 WBC 18.2 H (4.3-11.1) K/mcL Hgb 11.6 L (12.9-16.9) g/dL Hct 33.4 L (37.5-50.1) % Plt Count 95 L (140-400) K/mcL Neutrophils # 16.6 H (1.6-8.9) K/mcL BMP 03/27/17 04:55 Sodium 142 Potassium 4.4 Chloride 107 Carbon Dioxide 26 BUN 119 H Creatinine 1.59 H Glucose 153 H Calcium 7.6 L Urine 06/08/16 Range/Units 13:25 Urine Color Yellow (Yellow) Urine Clarity Cloudy A (Clear) Urine pH 6.0 (5.0-8.0) pH Units Ur Specific [place] 1.019 (1.010-1.025) Urine Protein Trace (Neg-Trace) mg/dL Urine Glucose (UA) Normal (Normal) mg/dL - ABG Interpretation ABG results: ABG ABG pH TNP 05/31/16 03:59 ABG pCO2 TNP 05/31/16 03:59 ABG pO2 TNP 05/31/16 03:59 ABG O2 Saturation TNP 05/31/16 03:59 PT/INR, D-dimer PT 11.1 Seconds (9.4-12.1) 05/29/16 13:40 Consult Discharge Plan - Plan Referrals: Saud Potter MD [Primary Care Provider] - Sudha Benton DO [Partnered Physician] - 06/23/16 1:10 pm
[2016-06-09] MEDS: Ipratropium/Albuterol Neb 3 ML IH SCH ×6 (04:36→23:13)
[2016-06-09] MEDS: GuaiFENesin Liq 200 MG/10 ML UDC PO SCH ×3 (05:29→16:47)
[2016-06-09] MEDS: APIXABAN 5 MG TABLET PO SCH ×2 (05:29→16:47)
[2016-06-09] MEDS: Cefepime HCl 1,000 MG in D5% in Water (Mini-Bag+) 100 ML IVPB SCH (05:29)
[2016-06-09 06:58] LABS: Basophils % 0.2 %; Mean Corpuscular Volume 99.1 fL (83.0-100.0); Red Cell Distribution Width 13.1 % (11.5-14.5)
[2016-06-09 07:00] LABS: Basophils # 0.1 K/mcL (0.0-0.2); Hematocrit 31.6 % (37.5-50.1); Hemoglobin 10.9 g/dL (12.9-16.9); Immature Granulocytes % 2.9 % (0-4); Immature Platelets 2.3 % (1.1-6.1); Mean Corpuscular HGB Conc 34.5 g/dL (31.6-35.5); Mean Corpuscular Hemoglobin 34.2 pg (28.0-33.3); Monocytes # 1.2 K/mcL (0.0-1.3); Monocytes % 4.9 %; Neutrophils # 22.3 K/mcL (1.6-8.9); Red Blood Count 3.19 M/mcL (4.19-5.50)
[2016-06-09 07:07] LABS: Calcium 7.5 mg/dL (8.6-10.8); Potassium 4.6 mEq/L (3.5-4.5)
[2016-06-09 08:08] LABS: Lymphocytes # 0.3 K/mcL (0.6-4.6); Platelet Count 97 K/mcL (140-400)
[2016-06-09 08:10] LABS: Platelet Estimate Slight Decrease (Normal)
[2016-06-09] MEDS: Diltiazem CD (24hr) 180 MG CAPSULE PO SCH ×2 (09:17→21:09)
[2016-06-09] MEDS: Aspirin Enteric Coated 81 MG Tablet PO SCH (09:17)
[2016-06-09] MEDS: Nystatin SUSP 5 ML UD.LIQ PO SCH ×4 (09:17→21:09)
[2016-06-09] MEDS: MethylPREDNISolone 40 MG/ML VIAL IVP SCH ×2 (09:17→21:09)
[2016-06-09] MEDS: Insulin LISPRO 300 UNITS/3 ML VIAL SQ SCH ×4 (09:18→21:16)
--- NOTE | 2016-06-09 13:08 | Podiatry Consult Note ---
Date of Encounter: 06/09/16 Time of Encounter: 12:25 Assessment and Plan (1) Onychomycosis Current visit: Yes Status: Acute Onychomycosis to toe nails #1 through #5 bilaterally. Debridement of nails #1 through #5 bilaterally in length, width and thickness with nail nipper and nail profile grinder technician to debulk nails to prevent infection/ ulceration. No complication ensued. Recommend patient f/u in Podiatry clinic for foot care every 3 months. (2) Acute exacerbation of chronic obstructive airways disease Current visit: Yes Status: Acute (3) Acute respiratory failure with hypoxia Current visit: Yes Status: Acute (4) Atrial fibrillation with RVR Current visit: Yes Status: Acute (5) Pressure ulcer of both heels Current visit: Yes Status: Acute Wound care was consulted and evaluated patient. Superficial skin tears to both ankles appear to be a soft tissue injury. No breakdown of skin over heel or achilles tendon. Follow wound care as ordered. History of Present Illness HPI: Mr. White is a 71 year old male admitted to [facility] for respiratory failure. Podiatry was consulted for overgrown thick toe nails of both feet. Patient denies any medical history of DM. He states he has had his toe nails trimmed in the past by a Counsel, but it has been over a year ago. He denies any pain to his feet. Patient has a medical history significant for fibrillation, CHF, COPD, CAD, GERD, MA, hypertension, and hyperlipidemia. Past Med Surg Social Fam HX - Past Medical History Medical history: atrial fibrillation, CHF, COPD, coronary artery disease, GERD, GI bleed, hyperlipidemia, hypertension, myocardial infarction, osteoporosis, valvular heart disease Psychiatric history: anxiety - Past Surgical History Surgical History: angioplasty/stent, appendectomy, carotid endarterectomy, heart valve replacement - Social History Smoking Status: Former smoker Smokeless Tobacco Status: No Alcohol use: heavy, recent Drug use: none - Family History Mother Family Member Ethnicity: Non- Living Status: Hx Family Cardiac Disorders: No Hx Family Respiratory Disorders: No Hx Family Cancer: Yes Hx Family GI Disorders: No Hx Family Endocrine Disorder: No Hx Family Neuromuscular Disorders: No Hx Family Neurologic Disorders: No Hx Family HEENT Disorders: No Hx Family Autoimmune Disorders: No Medications and Allergies Albuterol Neb [Proventil Neb] 2.5 mg IH Q6HR 04/13/15 [History] Albuterol Sulfate [Proair Respiclick] 2 puff IH Q4H PRN 04/13/15 [History] Alendronate Sodium [Fosamax] 35 mg PO QWEEK 04/13/15 [History] Aspirin [Adult Low Dose Aspirin EC] 81 mg PO DAILY 04/13/15 [History] Atorvastatin [Lipitor] 40 mg PO HS 04/13/15 [History] Bumetanide [Bumex] 1 mg PO BID 04/13/15 [History] Cinnamon Bark [Cinnamon] 1,000 mg PO DAILY 04/13/15 [History] Clopidogrel [Plavix] 75 mg PO DAILY 04/13/15 [History] Fluticasone/Salmeterol [Advair 500-50 Diskus] 1 each IH BID 04/13/15 [History] Garlic 1,000 mg PO BID 04/13/15 [History] Ipratropium [ATROVENT Inhaler] 2 puff IH Q6HR PRN 04/13/15 [History] Loratadine [Claritin] 10 mg PO DAILY 04/13/15 [History] Metoprolol [Lopressor] 50 mg PO BID 04/13/15 [History] Omeprazole [PriLOSEC] 20 mg PO DAILY 04/13/15 [History] Roflumilast [Daliresp] 500 mcg PO DAILY 04/13/15 [History] [place] Oil/[place]-3 Fatty Acids [Fish Oil 500 mg Softgel] 1 each PO BID 04/13/15 [History] Vitamin B Complex [B Complex] 1 each PO DAILY 04/13/15 [History] Vitamin E (Dl,Tocopheryl Acet) [Vitamin E] 400 unit PO DAILY 04/13/15 [History] Diazepam [Valium] 2 mg PO HS 05/29/16 [History] Levocetirizine Dihydrochloride [Xyzal] 5 mg PO DAILY 05/29/16 [History] PredniSONE [PredniSONE] 5 mg PO DAILY 05/29/16 [History] Allergies diazoxide Adverse Reaction (Verified 10/23/14 11:39) Rash furosemide [From Lasix] Adverse Reaction (Verified 10/23/14 11:39) Rash montelukast Adverse Reaction (Verified 10/23/14 11:39) See Comments Pneumococcal Vaccine Adverse Reaction (Verified 10/23/14 11:39) Rash All Systems Reviewed: A 10-system review of systems was performed and is negative for pertinent findings except as documented above in the HPI. Physical Exam - Constitutional Vitals: Temp Pulse Resp BP Pulse Ox 97.6 F 86 18 129/73 99 06/09/16 11:27 06/09/16 11:27 06/09/16 11:27 06/09/16 11:27 06/09/16 11:27 Exam: Dermatologic: Nails #1 through #5 bilaterally are thick, discolored, and mycotic. No signs of bacterial infection. ULCER: Appear to be superficial skin tears to the posterior ankles bilaterally. Base of wounds are red. No pus, no periwound erythema. Streaks of purple discoloration to both posterior ankles. Clear fluid draining from skin tears. Podiatry General Exam General appearance: alert awake oriented X 3. Calm and pleasant, no acute distress. Vascular: Pedal pulses non palpable to due 3+ pitting edema, No evidence of cyanosis, pallor or rubor, Skin Temperature warm, No varicosities or varicose veins noted, Homans Sign negative, capillary refill time is immediate to digits. Neurological: sensation intact with light touch. Musculoskeletal: Muscle strength 4/5 and equal bilaterally. Integument: Skin with decreased turgor, decreased subcutaneous tissue, skin thin and shiny with trophic changes associated with comorbidities as described in history. Results - Labs Result Diagrams: 06/09/16 06:24 06/09/16 06:24 Labs: Abnormal lab results WBC 24.5 K/mcL (4.3-11.1) H 06/09/16 06:24 RBC 3.19 M/mcL (4.19-5.50) L 06/09/16 06:24 Hgb 10.9 g/dL (12.9-16.9) L 06/09/16 06:24 Hct 31.6 % (37.5-50.1) L 06/09/16 06:24 MCH 34.2 pg (28.0-33.3) H 06/09/16 06:24 Plt Count 97 K/mcL (140-400) L 06/09/16 06:24 Neutrophils # 22.3 K/mcL (1.6-8.9) H 06/09/16 06:24 Lymphocytes # 0.3 K/mcL (0.6-4.6) L 06/09/16 06:24 Platelet Estimate Slight Decrease (Normal) L 06/09/16 06:24 APTT 23.1 Seconds (26.0-36.0) L 05/29/16 13:40 Potassium 4.6 mEq/L (3.5-4.5) H 06/09/16 06:24 BUN 120 mg/dL (8-26) H 06/09/16 06:24 Creatinine 1.58 mg/dL (0.72-1.25) H 06/09/16 06:24 Est GFR ( Amer) 53 (> 60) L 06/09/16 06:24 Est GFR (Non-Af Amer) 43 (> 60) L 06/09/16 06:24 BUN/Creatinine Ratio 76 (6-26) H 06/09/16 06:24 Glucose 197 mg/dL (70-99) H 06/09/16 06:24 POC Glucose 151 (58-89) H 06/08/16 21:39 Calculated Osmolality 334 (280-300) H 06/09/16 06:24 Uric Acid 14.4 mg/dL (3.5-7.2) H 06/08/16 04:55 Calcium 7.5 mg/dL (8.6-10.8) L 06/09/16 06:24 Troponin I 0.17 ng/mL (0-0.03) H* 05/30/16 08:30 B-Natriuretic Peptide 479 pg/mL (0-100) H 06/07/16 06:41 Albumin 2.6 g/dL (3.5-5.0) L 06/07/16 06:41 TSH 0.103 mcIU/mL (0.350-4.840) L 06/03/16 04:27 Urine Clarity Cloudy (Clear) A 06/08/16 13:25 Urine Blood Large (Negative) H 06/08/16 13:25 Ur Leukocyte Esterase Small (Negative) H 06/08/16 13:25 Urine Microscopic RBC 50-100 per hpf (0-3) H 06/08/16 13:25 Urine Microscopic WBC 5-15 per hpf (0-3) H 06/08/16 13:25 Ur Culture Indicated? YES (NO) A 06/08/16 13:25 H & H 06/09/16 Range/Units 06:24 Hgb 10.9 L (12.9-16.9) g/dL Hct 31.6 L (37.5-50.1) % All other labs normal. Consult Discharge Plan - Plan Referrals: Saud Potter MD [Primary Care Provider] - 06/19/16 3:00 pm Sudha Benton DO [Partnered Physician] - 06/23/16 1:10 pm
--- NOTE | 2016-06-09 13:55 | Nephrology Progress Note ---
<Kailyn Reyes - Last Filed: 06/09/16 14:09> Date of Encounter: 06/09/16 Time of Encounter: 13:53 - Assessment and Plan (1) Azotemia Current Visit: Yes Status: Acute Due to steroids for COPD exacerbation. Continue to wean IV steroids as tolerated (by primary team). Continue to hold Bumex. Oral fluids only (no IVF). Low salt diet. Urinalysis remarkable for large blood. Elevated uric acid consistent with dehydrated state (intravascularly). CKD lab analysis pending. Add mucomyst to duonebs. Albumin to help with edema. Continue renal protective strategy. (2) Acute kidney injury Current Visit: No Status: Acute (3) CKD (chronic kidney disease), stage III Current Visit: Yes Status: Chronic (4) Acute exacerbation of chronic obstructive airways disease Current Visit: Yes Status: Acute continue to taper steroids as tolerated Subjective Principal diagnosis: azotemia Interval history: Patient seen and examined. No signs of uremia. Pitting edema of lower extremities. Objective - Vital Signs Vital signs: Vital Signs Temp Pulse Resp BP Pulse Ox 06/09/16 11:27 97.6 F 86 18 129/73 99 06/09/16 11:25 18 97 06/09/16 08:01 97.5 F L 90 18 107/83 99 06/09/16 07:45 18 93 L 06/09/16 04:36 18 95 06/09/16 04:00 79 19 135/61 96 06/08/16 23:20 18 98 06/08/16 21:00 86 20 129/56 98 06/08/16 19:36 16 99 06/08/16 15:01 16 95 06/08/16 15:00 16 95 06/08/16 14:59 97.9 F 86 16 123/69 100 Intake and Output 06/08/16 06/09/16 06/09/16 23:59 07:59 15:59 Intake Total 420 / 420 200 / 200 240 / 240 Output Total 325 / 325 425 / 425 400 / 400 Balance 95 / 95 -225 / -225 -160 / -160 Intake: IV Fluids 100 / 100 Maxipime 1,000 MG In 100 / 100 Dextrose 5% (Minibag+) 100 ML 100 ML @ 200 mls/ hr IVPB Q12HR [facility] Rx#: [id number] Oral 320 / 320 200 / 200 240 / 240 Output: Catheter 325 / 325 425 / 425 400 / 400 Other: Meal Dinner Lunch Percent of Meal Consumed 25% 10% Stool Size Small Stool Consistency formed Stool Color Brown Weight 81.8 kg Blood Glucose* 151 205 Patient Weight 06/09/16 23:59 Weight 81.8 kg - General Appearance General appearance: Present: well-developed, well-nourished, appears started age EENT: Present: mucous membranes moist Respiratory: Present: wheezing, course breath sounds, rhonchi (bibasilar) Cardiology: Present: no murmurs, edema (2-3+ pitting edema past knee of bilateral legs), regular rate, regular rhythm, normal S1, normal S2 Integumentary: Present: warm and dry Additional Comments: bruising of bilateral upper extremities Neurologic: Present: no focal deficit, alert and oriented x3 Musculoskeletal: Present: no deformities, no cyanosis Psychiatric: Present: mood/affect appropriate, cooperative - Lab 06/09/16 06:24 06/09/16 06:24 Most recent lab results ABG pH TNP 05/31/16 03:59 ABG pCO2 TNP 05/31/16 03:59 ABG pO2 TNP 05/31/16 03:59 ABG HCO3 TNP 05/31/16 03:59 ABG O2 Saturation TNP 05/31/16 03:59 Calcium 7.5 mg/dL (8.6-10.8) L 06/09/16 06:24 Phosphorus 4.3 mg/dL (2.3-4.7) 06/07/16 06:41 Magnesium 2.4 mg/dL (1.6-2.6) 06/03/16 04:27 Urine Creatinine 58 mg/dL 06/08/16 13:25 Urine Sodium < 20.0 mEq/L 06/08/16 13:25 Consult Discharge Plan - Plan Referrals: Saud Potter MD [Primary Care Provider] - 06/19/16 3:00 pm Sudha Benton DO [Partnered Physician] - 06/23/16 1:10 pm <Nick Aceves - Last Filed: 06/11/16 15:46> Date of Encounter: 06/09/16 Objective - Vital Signs Vital signs: Vital Signs Temp Pulse Resp BP Pulse Ox 06/11/16 12:12 97.7 F 101 18 103/72 95 06/11/16 11:09 18 99 06/11/16 10:10 97.3 F L 104 14 103/54 99 06/11/16 04:30 24 93 L 06/11/16 04:00 110 17 130/96 96 06/10/16 23:43 22 96 06/10/16 22:00 106 24 158/78 97 06/10/16 20:33 24 92 L 06/10/16 16:16 18 98 06/10/16 16:11 98.6 F 94 16 140/63 100 Intake and Output 06/10/16 06/11/16 06/11/16 23:59 07:59 15:59 Intake Total 100 / 100 0 / 0 530 / 530 Output Total 600 / 600 700 / 700 Balance -500 / -500 -700 / -700 530 / 530 Intake: IV Fluids 100 / 100 Flexbumin 25 gm In 100 ml 100 / 100 @ 60 mls/hr IVPB Q12HR [facility] Rx#:[id number] Oral 0 / 0 0 / 0 480 / 480 Free Water 50 / 50 Output: Urine 0 / 0 Catheter 600 / 600 700 / 700 Other: Meal refused Breakfast Percent of Meal Consumed 0% 80% Weight 79.2 kg Blood Glucose* 105 140 375 Patient Weight 06/11/16 23:59 Weight 79.2 kg - Lab 06/11/16 00:38 06/11/16 00:38 Most recent lab results ABG pH TNP 05/31/16 03:59 ABG pCO2 TNP 05/31/16 03:59 ABG pO2 TNP 05/31/16 03:59 ABG HCO3 TNP 05/31/16 03:59 ABG O2 Saturation TNP 05/31/16 03:59 Calcium 8.4 mg/dL (8.6-10.8) L 06/11/16 00:38 Phosphorus 4.3 mg/dL (2.3-4.7) 06/07/16 06:41 Magnesium 2.4 mg/dL (1.6-2.6) 06/03/16 04:27 Urine Creatinine 58 mg/dL 06/08/16 13:25 Urine Sodium < 20.0 mEq/L 06/08/16 13:25 - Attending Attestation I examined this patient and my medical decision-making was reviewed with the MEAT CLERK/PA/Advanced Practice Nurse/Resident Physician. I agree with the documented findings, disposition and treatment plan as described except to the extent set forth below. Pt seen and examined still quite SOB with wheezes. Discussed care with primary team who will addd mucomyst to pulm toilet regimen to hopefully aid steroid taper. Will add albumin to improve intravascular volume. SCr improving. BUN mostly unchanged.
[2016-06-09] MEDS: Acetylcysteine 10% 2 ML INHSOL IH SCH ×3 (16:06→23:14)
--- NOTE | 2016-06-09 17:02 | Internal Med Progress Note ---
Date of Encounter: 06/09/16 Time of Encounter: 16:58 - Assessment and plan (1) COPD exacerbation Current Visit: No Status: Acute Assessment and plan: Will continue ABX : Cefepeme : day 5 Iv Steroids tapering dosages. BDAs (2) Acute kidney injury Current Visit: No Status: Acute Assessment and plan: Monitor BUN and creatinine. Avoid nephrotoxins. Steroid tapering dosages Nephrology on Board nad will follow recommendations. (3) Very severe chronic obstructive pulmonary disease Current Visit: No Status: Chronic Assessment and plan: will talk to family and patient to consider palliative care re evaluation again (4) Hypertension Current Visit: No Status: Chronic Assessment and plan: Stable Qualifiers: Hypertension type: essential hypertension Qualified Code(s): I10 - Essential (primary) hypertension (5) Atrial fibrillation with RVR Current Visit: Yes Status: Acute Assessment and plan: Atrial fibrillation with RVR, better rate control now wall with metoprolol and oral diltiazem. Appreciate cardiology recs. Started on Eliquis by cardiology. - Subjective Interval history: seen and examined no new issues patient is complaining of occasional SOB - Constitutional Vitals: Temp Pulse Resp BP Pulse Ox 97.6 F 86 18 129/73 97 06/09/16 11:27 06/09/16 11:27 06/09/16 16:08 06/09/16 11:27 06/09/16 16:08 General appearance: Present: A&O X 3 - Head Head exam: Present: atraumatic, normocephalic - Eye Eye exam: Present: PERRL, conjuntiva pink, sclera anicteric Pupils: Present: PERRL - Neck Neck exam general surgery: Present: supple, trachea midline. Absent: lymphadenopathy - Respiratory Respiratory exam: Present: CTAB. Absent: accessory muscle use, rales, rhonchi, wheezes - Cardiovascular Cardiovascular exam: Present: RRR, +S1, +S2. Absent: diastolic murmur, gallop, rubs, systolic murmur - GI/Abdominal GI/Abdominal exam: Present: normal bowel sounds, soft, no peritoneal signs. Absent: distended, tenderness - Extremities Exam Extremities exam: Present: warm, radial pulses palpable and symetrical. Absent : calf tenderness, cyanotic, pedal edema - Neurological Exam Neurological exam: Present: CN II-XII intact, oriented X3, no focal deficits. Absent: pronater drift, facial droop, speech deficit - Skin Skin exam: Present: dry, intact Internal Medicine: Result - Labs CBC & Chem 7: 06/09/16 06:24 06/09/16 06:24 Labs: Short CBC 06/09/16 Range/Units 06:24 WBC 24.5 H (4.3-11.1) K/mcL Hgb 10.9 L (12.9-16.9) g/dL Hct 31.6 L (37.5-50.1) % Plt Count 97 L (140-400) K/mcL Neutrophils # 22.3 H (1.6-8.9) K/mcL BMP 06/09/16 06:24 Sodium 140 Potassium 4.6 H Chloride 107 Carbon Dioxide 23 BUN 120 H Creatinine 1.58 H Glucose 197 H Calcium 7.5 L - ABG Interpretation ABG results: ABG ABG pH TNP 05/31/16 03:59 ABG pCO2 TNP 05/31/16 03:59 ABG pO2 TNP 05/31/16 03:59 ABG O2 Saturation TNP 05/31/16 03:59 PT/INR, D-dimer PT 11.1 Seconds (9.4-12.1) 05/29/16 13:40 Consult Discharge Plan - Plan Referrals: Saud Potter MD [Primary Care Provider] - 06/19/16 3:00 pm Sudha Benton DO [Partnered Physician] - 06/23/16 1:10 pm
[2016-06-09] MEDS ORDERED: Albumin 25% 25gram/100mL 25 GM/100 ML IV.SOLN IVPB SCH (18:00)
[2016-06-09] MEDS: Silvasorb 44.4 ML TUBE TP SCH (19:02)
[2016-06-10] MEDS: GuaiFENesin Liq 200 MG/10 ML UDC PO SCH ×4 (00:12→20:17)
--- NOTE | 2016-06-10 00:36 | Event Note ---
Date of Encounter: 06/10/16 Time of Encounter: 00:34 I was told by the patient's nurse that the patient stated that he feels that he is swallowing food into his lungs. When he took his evening pills he had to clear his throat afterwards. He has advanced stage COPD and acute on chronic hypoxic respiratory failure. His respiratory status is very precarious. He is certainly at risk for aspiration and therefore I will make the patient nothing by mouth and will consult speech and swallow evaluation.
[2016-06-10] MEDS: APIXABAN 5 MG TABLET PO SCH ×2 (04:16→18:01)
[2016-06-10] MEDS: Acetylcysteine 10% 2 ML INHSOL IH SCH ×6 (04:17→23:45)
[2016-06-10] MEDS: Ipratropium/Albuterol Neb 3 ML IH SCH ×6 (04:17→23:45)
[2016-06-10 06:41] LABS: Basophils % 0.1 %; Lymphocytes % 1.2 %; Monocytes % 3.7 %; Red Cell Distribution Width 13.2 % (11.5-14.5)
[2016-06-10 06:43] LABS: Hematocrit 27.1 % (37.5-50.1); Hemoglobin 9.2 g/dL (12.9-16.9); Immature Granulocytes % 2.5 % (0-4); Immature Platelets 2.8 % (1.1-6.1); Lymphocytes # 0.2 K/mcL (0.6-4.6); Mean Corpuscular HGB Conc 33.9 g/dL (31.6-35.5); Mean Corpuscular Hemoglobin 33.6 pg (28.0-33.3); Mean Corpuscular Volume 98.9 fL (83.0-100.0); Mean Platelet Volume 11.1 fL (9.4-12.4); Monocytes # 0.6 K/mcL (0.0-1.3); Neutrophils # 15.1 K/mcL (1.6-8.9); Red Blood Count 2.74 M/mcL (4.19-5.50); Segmented Neutrophils % 92.5 %
[2016-06-10] MEDS: Albumin 25% 25gram/100mL 25 GM/100 ML IV.SOLN IVPB SCH ×2 (06:49→17:55)
[2016-06-10 06:52] LABS: Platelet Count 70 K/mcL (140-400)
[2016-06-10 07:10] LABS: Calcium 7.9 mg/dL (8.6-10.8); Potassium 4.3 mEq/L (3.5-4.5)
[2016-06-10 10:15] LABS: Kappa Qnt Free Light Chains 2.53 mg/dL (0.33-1.94); Lambda Qnt Free Light Chains 1.01 mg/dL (0.57-2.63)
--- NOTE | 2016-06-10 11:48 | Nephrology Progress Note ---
<Kailyn Reyes - Last Filed: 06/10/16 11:46> Date of Encounter: 06/10/16 Time of Encounter: 11:46 - Assessment and Plan (1) Azotemia Current Visit: Yes Status: Acute Due to steroids for COPD exacerbation. Wean IV steroids as tolerated (by primary team). Continue to hold Bumex. Oral fluids only (no IVF). Low salt diet. CKD lab analysis pending. Mucomyst with duonebs. Albumin to help with edema. Continue renal protective strategy. (2) Acute kidney injury Current Visit: No Status: Acute (3) CKD (chronic kidney disease), stage III Current Visit: Yes Status: Chronic (4) Acute exacerbation of chronic obstructive airways disease Current Visit: Yes Status: Acute taper steroids as tolerated Subjective Principal diagnosis: azotemia Interval history: Patient seen and examined. No signs of uremia. Pitting edema of lower extremities improved. Objective - Vital Signs Vital signs: Vital Signs Temp Pulse Resp BP Pulse Ox 06/10/16 11:34 18 96 06/10/16 07:40 97.9 F 79 16 120/53 98 06/10/16 07:35 18 92 L 06/10/16 04:24 97.8 F 72 21 127/57 97 06/10/16 04:19 16 94 L 06/09/16 23:16 18 94 L 06/09/16 21:17 98.7 F 96 19 143/80 96 06/09/16 20:10 20 94 L 06/09/16 17:05 97.5 F L 82 18 128/80 97 06/09/16 16:08 18 97 Intake and Output 06/09/16 06/10/16 06/10/16 23:59 07:59 15:59 Intake Total 120 / 120 Output Total 600 / 600 Balance -480 / -480 Intake: Oral 120 / 120 Output: Catheter 600 / 600 Other: Meal Dinner Percent of Meal Consumed 10% Blood Glucose* 157 211 - General Appearance General appearance: Present: well-developed, well-nourished EENT: Present: mucous membranes dry Neck: Present: supple Respiratory: Present: course breath sounds (left upper lung field) Cardiology: Present: no murmurs, edema (2+ pitting edema to midcalf, improved from yesterday), regular rate, regular rhythm, normal S1, normal S2 Additional Comments: bruising of bilateral upper extremities Neurologic: Present: no focal deficit, alert and oriented x3, CN 3-12 intact Musculoskeletal: Present: no deformities Psychiatric: Present: mood/affect appropriate, cooperative - Lab 06/10/16 05:57 06/10/16 05:57 Most recent lab results ABG pH TNP 05/31/16 03:59 ABG pCO2 TNP 05/31/16 03:59 ABG pO2 TNP 05/31/16 03:59 ABG HCO3 TNP 05/31/16 03:59 ABG O2 Saturation TNP 05/31/16 03:59 Calcium 7.9 mg/dL (8.6-10.8) L 06/10/16 05:57 Phosphorus 4.3 mg/dL (2.3-4.7) 06/07/16 06:41 Magnesium 2.4 mg/dL (1.6-2.6) 06/03/16 04:27 Urine Creatinine 58 mg/dL 06/08/16 13:25 Urine Sodium < 20.0 mEq/L 06/08/16 13:25 Consult Discharge Plan - Plan Referrals: Saud Potter MD [Primary Care Provider] - 06/19/16 3:00 pm Sudha Benton DO [Partnered Physician] - 06/23/16 1:10 pm <Nick Aceves - Last Filed: 06/11/16 15:54> Date of Encounter: 06/10/16 Objective - Vital Signs Vital signs: Vital Signs Temp Pulse Resp BP Pulse Ox 06/11/16 12:12 97.7 F 101 18 103/72 95 06/11/16 11:09 18 99 06/11/16 10:10 97.3 F L 104 14 103/54 99 06/11/16 04:30 24 93 L 06/11/16 04:00 110 17 130/96 96 06/10/16 23:43 22 96 06/10/16 22:00 106 24 158/78 97 06/10/16 20:33 24 92 L 06/10/16 16:16 18 98 06/10/16 16:11 98.6 F 94 16 140/63 100 Intake and Output 06/10/16 06/11/16 06/11/16 23:59 07:59 15:59 Intake Total 100 / 100 0 / 0 530 / 530 Output Total 600 / 600 700 / 700 Balance -500 / -500 -700 / -700 530 / 530 Intake: IV Fluids 100 / 100 Flexbumin 25 gm In 100 ml 100 / 100 @ 60 mls/hr IVPB Q12HR [facility] Rx#:[id number] Oral 0 / 0 0 / 0 480 / 480 Free Water 50 / 50 Output: Urine 0 / 0 Catheter 600 / 600 700 / 700 Other: Meal refused Breakfast Percent of Meal Consumed 0% 80% Weight 79.2 kg Blood Glucose* 105 140 375 Patient Weight 06/11/16 23:59 Weight 79.2 kg - Lab 06/11/16 00:38 06/11/16 00:38 Most recent lab results ABG pH TNP 05/31/16 03:59 ABG pCO2 TNP 05/31/16 03:59 ABG pO2 TNP 05/31/16 03:59 ABG HCO3 TNP 05/31/16 03:59 ABG O2 Saturation TNP 05/31/16 03:59 Calcium 8.4 mg/dL (8.6-10.8) L 06/11/16 00:38 Phosphorus 4.3 mg/dL (2.3-4.7) 06/07/16 06:41 Magnesium 2.4 mg/dL (1.6-2.6) 06/03/16 04:27 Urine Creatinine 58 mg/dL 06/08/16 13:25 Urine Sodium < 20.0 mEq/L 06/08/16 13:25 - Attending Attestation I examined this patient and my medical decision-making was reviewed with the HAND PICKER/PA/Advanced Practice Nurse/Resident Physician. I agree with the documented findings, disposition and treatment plan as described except to the extent set forth below. Pt seen and examined breathing status mostly unchanged with mucomyst on boards. SCr slightly improved at 1.42, BUn still elevated at 122. No steroid taper yet. Continue po fluids, sodium elevating, will monitor
[2016-06-10] MEDS: Nystatin SUSP 5 ML UD.LIQ PO SCH ×4 (13:02→21:42)
[2016-06-10] MEDS: Insulin LISPRO 300 UNITS/3 ML VIAL SQ SCH ×4 (13:02→21:41)
[2016-06-10] MEDS: Diltiazem CD (24hr) 180 MG CAPSULE PO SCH ×2 (13:25→21:34)
[2016-06-10] MEDS: Aspirin Enteric Coated 81 MG Tablet PO SCH (13:25)
[2016-06-10] MEDS: MethylPREDNISolone 40 MG/ML VIAL IVP SCH (13:26)
[2016-06-10] MEDS: Silvasorb 44.4 ML TUBE TP SCH (13:26)
[2016-06-10 13:41] LABS: ANA IgG by ELISA NONE DETECTED (None Detected)
--- NOTE | 2016-06-10 14:05 | Internal Med Progress Note ---
Date of Encounter: 06/10/16 Time of Encounter: 14:03 - Assessment and plan (1) COPD exacerbation Current Visit: No Status: Acute Assessment and plan: Will continue ABX : Cefepeme : day 5 Iv Steroids tapering dosages. BDAs 06/10/2016. Antibiotics: Cefepime:Day 6 IV steroids: Tapering dosages Bronchodilators. I had an long discussion with patient's son who is a power of adjunct professor of voice. Patient's son claims that she understood the severity of his father's illness. Patient's son is not keen for intubation/ventilation and any heroic measures including CPR. We will get palliative care consult to reevaluate patient's condition. (2) Acute kidney injury Current Visit: No Status: Acute Assessment and plan: Monitor BUN and creatinine. Avoid nephrotoxins. Steroid tapering dosages Nephrology on Board nad will follow recommendations. 06/10/2016. Renal function stabilized. Nephrology on the Board. We will follow their recommendation. (3) Very severe chronic obstructive pulmonary disease Current Visit: No Status: Chronic Assessment and plan: will talk to family and patient to consider palliative care re evaluation again 06/10/2016. Spoken to patient's son. Please see above. (4) Hypertension Current Visit: No Status: Chronic Assessment and plan: Stable Qualifiers: Hypertension type: essential hypertension Qualified Code(s): I10 - Essential (primary) hypertension (5) Atrial fibrillation with RVR Current Visit: Yes Status: Acute Assessment and plan: Atrial fibrillation with RVR, better rate control now wall with metoprolol and oral diltiazem. Appreciate cardiology recs. Started on Eliquis by cardiology. - Subjective Interval history: seen and examined no new issues patient is complaining of occasional 06/10/2016. Patient seen and examined. Patient is little drowsy and answers to questions after 1 or 2 recall. Patient's son is at bedside. Patient has occasional shortness of breath, cough and dizziness. - Constitutional Vitals: Temp Pulse Resp BP Pulse Ox 97.9 F 79 18 120/53 96 06/10/16 07:40 06/10/16 07:40 06/10/16 11:34 06/10/16 07:40 06/10/16 11:34 General appearance: Present: A&O X 2, mild distress, pleasant, answers questions appropriately - Head Head exam: Present: atraumatic, normocephalic - Eye Eye exam: Present: PERRL, conjuntiva pink, sclera anicteric Pupils: Present: PERRL - Neck Neck exam general surgery: Present: supple, trachea midline. Absent: lymphadenopathy - Respiratory Respiratory exam: Present: CTAB. Absent: accessory muscle use, rales, rhonchi, wheezes - Cardiovascular Cardiovascular exam: Present: RRR, +S1, +S2. Absent: diastolic murmur, gallop, rubs, systolic murmur - GI/Abdominal GI/Abdominal exam: Present: normal bowel sounds, soft, no peritoneal signs. Absent: distended, tenderness - Extremities Exam Extremities exam: Present: warm, radial pulses palpable and symetrical. Absent : calf tenderness, cyanotic, pedal edema - Neurological Exam Neurological exam: Present: CN II-XII intact, oriented X3, no focal deficits. Absent: pronater drift, facial droop, speech deficit - Skin Skin exam: Present: dry, intact Internal Medicine: Result - Labs CBC & Chem 7: 06/10/16 05:57 06/10/16 05:57 Labs: Short CBC 06/10/16 Range/Units 05:57 WBC 16.3 H (4.3-11.1) K/mcL Hgb 9.2 L D (12.9-16.9) g/dL Hct 27.1 L (37.5-50.1) % Plt Count 70 L (140-400) K/mcL Neutrophils # 15.1 H (1.6-8.9) K/mcL BMP 06/10/16 05:57 Sodium 147 H Potassium 4.3 Chloride 110 H Carbon Dioxide 26 BUN 122 H Creatinine 1.42 H Glucose 204 H Calcium 7.9 L - ABG Interpretation ABG results: ABG ABG pH TNP 05/31/16 03:59 ABG pCO2 TNP 05/31/16 03:59 ABG pO2 TNP 05/31/16 03:59 ABG O2 Saturation TNP 05/31/16 03:59 PT/INR, D-dimer PT 11.1 Seconds (9.4-12.1) 05/29/16 13:40 Consult Discharge Plan - Plan Referrals: Saud Potter MD [Primary Care Provider] - 06/19/16 3:00 pm Sudha Benton DO [Partnered Physician] - 06/23/16 1:10 pm
--- NOTE | 2016-06-10 15:42 | Event Note ---
Date of Encounter: 06/10/16 Time of Encounter: 14:[address] Villareal for re-consult on patient familiar to us from this stay. Patient continues to do poorly despite treatment. He is currently asleep. D/W son Wily and will be meeting with him and pt tomorrow at 1100. Will f/u in am.
[2016-06-10] MEDS: *HR* Metoprolol 5 MG/5 ML VIAL IVP PRN (21:42)
--- NOTE | 2016-06-10 21:55 | Event Note ---
Date of Encounter: 06/10/16 Time of Encounter: 21:45 called to room for worsening respiratory status. Pt having increased dyspnea, dry cough with difficulty speaking and swallowing PO medications. on auscultation pt is rhonchorus with inspiratory and expiratory wheezing throughout with crackles in b/l bases. third spacing with 4+ pitting edema. Despite breathing treatment still has Increased work of breathing. O2 sat of 89% , 94% after breathing treatment with 4L O2 NC. Due to worsening respiratory status despite breathing treatment, albumin, fluid and salt restriction. Will give additional breathing treatments of albuterol neb q2h prn, increased dose of solumedrol, one time dose bumex. redraw labs
[2016-06-10 22:14] LABS: Alpha 2 Globulin (PEP) 0.47 g/dL (0.48-1.05); Beta Globulin (PEP) 0.52 g/dL (0.48-1.10)
[2016-06-11 00:46] LABS: Basophils % 0.1 %; Hemoglobin 8.5 g/dL (12.9-16.9); Mean Corpuscular Volume 99.6 fL (83.0-100.0); Mean Platelet Volume 10.4 fL (9.4-12.4)
[2016-06-11 00:48] LABS: Immature Granulocytes % 1.8 % (0-4); Immature Platelets 2.4 % (1.1-6.1); Lymphocytes # 0.2 K/mcL (0.6-4.6); Mean Corpuscular Hemoglobin 33.9 pg (28.0-33.3); Monocytes # 0.9 K/mcL (0.0-1.3); Neutrophils # 16.1 K/mcL (1.6-8.9); Red Blood Count 2.51 M/mcL (4.19-5.50); Red Cell Distribution Width 13.1 % (11.5-14.5); Segmented Neutrophils % 92.1 %
[2016-06-11 00:51] LABS: INR 1.4; Prothrombin Time 15.3 Seconds (9.4-12.1)
[2016-06-11 00:54] LABS: Activated Partial Thrombo Time 25.2 Seconds (26.0-36.0)
[2016-06-11 01:02] LABS: Alanine Aminotransferase 16 Units/L (0-55); Albumin 3.6 g/dL (3.5-5.0); Albumin/Globulin Ratio 2.3 (1.1-2.2); Alkaline Phosphatase 33 Units/L (38-126); Aspartate Amino Transferase 21 Units/L (5-34); BUN/Creatinine Ratio 86 (6-26); Bilirubin,Total 0.7 mg/dL (0.2-1.2); Blood Urea Nitrogen 119 mg/dL (8-26); Calcium 8.4 mg/dL (8.6-10.8); Carbon Dioxide 28 mEq/L (19-29); Chloride 114 mEq/L (98-109); Globulin 1.6 g/dL (2.4-3.5); Glucose 80 mg/dL (70-99); Osmolality,Calculated 349 (280-300); Potassium 4.1 mEq/L (3.5-4.5); Sodium 151 mEq/L (136-145); Total Protein 5.2 g/dL (6.0-8.3); eGFR For African Americans > 60 (> 60); eGFR For Non-African Americans 51 (> 60)
[2016-06-11 01:04] LABS: Platelet Count 65 K/mcL (140-400); Platelet Estimate Decreased (Normal)
[2016-06-11] MEDS: GuaiFENesin Liq 200 MG/10 ML UDC PO SCH ×4 (04:31→16:29)
[2016-06-11] MEDS: Ipratropium/Albuterol Neb 3 ML IH SCH ×5 (04:31→20:37)
[2016-06-11] MEDS: Acetylcysteine 10% 2 ML INHSOL IH SCH ×5 (04:32→20:37)
[2016-06-11] MEDS: APIXABAN 5 MG TABLET PO SCH ×2 (04:38→16:31)
[2016-06-11] MEDS: Albumin 25% 25gram/100mL 25 GM/100 ML IV.SOLN IVPB SCH ×2 (05:04→16:32)
[2016-06-11] MEDS: Insulin LISPRO 300 UNITS/3 ML VIAL SQ SCH ×5 (09:06→20:46)
[2016-06-11] MEDS: Diltiazem CD (24hr) 180 MG CAPSULE PO SCH ×2 (09:21→20:33)
[2016-06-11] MEDS: methylPREDNISolone 125 MG/2 ML VIAL IVP SCH ×3 (09:21→16:29)
[2016-06-11] MEDS: Silvasorb 44.4 ML TUBE TP SCH (09:22)
[2016-06-11] MEDS: Nystatin SUSP 5 ML UD.LIQ PO SCH ×4 (09:22→20:35)
[2016-06-11] MEDS: Aspirin Enteric Coated 81 MG Tablet PO SCH (09:22)
[2016-06-11 11:27] LABS: IFE Reflexed IFE Done; Immunoglobulin A 157 mg/dL (68-408); Immunoglobulin G 384 mg/dL (768-1632); Immunoglobulin M 94 mg/dL (35-263)
--- NOTE | 2016-06-11 14:56 | Palliative Progress Note ---
Date of Encounter: 06/10/16 Time of Encounter: 13:45 - Assessment and plan (1) Dyspnea Current Visit: No Status: Acute Assessment and plan: Continues hypoxic episodes and dyspnea despite steroids, diuretics, bronchodilators. He has not yet made a decision re: code status and discharge disposition. If he would transition to comfort care, low dose opioids may be helpful for his shortness of breath. Qualifiers: Dyspnea type: unspecified Qualified Code(s): R06.00 - Dyspnea, unspecified (2) Goals of care, counseling/discussion Current Visit: Yes Status: Acute Assessment and plan: Long discussion with pt, pt son, Wily, and pt brother. Once again discussed severity of lung disease and aggressiveness of care. Patient still remains full code, but states he will "think about it". He is also open to considering placement to swing bed or ECF upon discharge. At the same time, pt still insists he thinks he can manage by himself at home. We discussed safety and medical management. Rafa Smith and Glycerin Operator Juan Stuart also present. Patient eventually became frustrated with conversation. Son continues to try and speak with him re: code status and d/c plan. Will f/u in am. (3) Very severe chronic obstructive pulmonary disease Current Visit: No Status: Chronic (4) COPD exacerbation Current Visit: No Status: Acute (5) Atrial fibrillation with RVR Current Visit: Yes Status: Acute - Time Spent With Patient Total time spent is greater than 50% in coordination of care (as documented) at patient's floor/unit and/or counseling patient: 25 - 35 minutes - Subjective Interval history: Patient resting in bed. Dyspneic with speech or any activity. Son and brother at bedside. - Constitutional Vitals: Abnormal lab results WBC 17.5 K/mcL (4.3-11.1) H 06/11/16 00:38 RBC 2.51 M/mcL (4.19-5.50) L 06/11/16 00:38 Hgb 8.5 g/dL (12.9-16.9) L 06/11/16 00:38 Hct 25.0 % (37.5-50.1) L 06/11/16 00:38 MCH 33.9 pg (28.0-33.3) H 06/11/16 00:38 Plt Count 65 K/mcL (140-400) L 06/11/16 00:38 Neutrophils # 16.1 K/mcL (1.6-8.9) H 06/11/16 00:38 Lymphocytes # 0.2 K/mcL (0.6-4.6) L 06/11/16 00:38 Platelet Estimate Decreased (Normal) L 06/11/16 00:38 PT 15.3 Seconds (9.4-12.1) H 06/11/16 00:38 APTT 25.2 Seconds (26.0-36.0) L 06/11/16 00:38 Sodium 151 mEq/L (136-145) H 06/11/16 00:38 Chloride 114 mEq/L (98-109) H 06/11/16 00:38 BUN 119 mg/dL (8-26) H 06/11/16 00:38 Creatinine 1.38 mg/dL (0.72-1.25) H 06/11/16 00:38 Est GFR (Non-Af Amer) 51 (> 60) L 06/11/16 00:38 BUN/Creatinine Ratio 86 (6-26) H 06/11/16 00:38 POC Glucose 140 (58-89) H 06/11/16 07:33 Calculated Osmolality 349 (280-300) H 06/11/16 00:38 Uric Acid 14.4 mg/dL (3.5-7.2) H 06/08/16 04:55 Calcium 8.4 mg/dL (8.6-10.8) L 06/11/16 00:38 Alkaline Phosphatase 33 Units/L (38-126) L 06/11/16 00:38 Troponin I 0.17 ng/mL (0-0.03) H* 05/30/16 08:30 B-Natriuretic Peptide 479 pg/mL (0-100) H 06/07/16 06:41 Serum Total Protein 5.2 g/dL (6.0-8.3) L 06/11/16 00:38 Total Protein (PEP) 5.00 g/dL (6.00-8.30) L 06/07/16 06:41 Albumin (PEP) 3.36 g/dL (3.75-5.01) L 06/07/16 06:41 Globulin 1.6 g/dL (2.4-3.5) L 06/11/16 00:38 Albumin/Globulin Ratio 2.3 (1.1-2.2) H 06/11/16 00:38 Szgqx-8-Rxifrzthi 0.47 g/dL (0.48-1.05) L 06/07/16 06:41 Gamma Globulins 0.43 g/dL (0.62-1.51) L 06/07/16 06:41 TSH 0.103 mcIU/mL (0.350-4.840) L 06/03/16 04:27 Urine Clarity Cloudy (Clear) A 06/08/16 13:25 Urine Blood Large (Negative) H 06/08/16 13:25 Ur Leukocyte Esterase Small (Negative) H 06/08/16 13:25 Urine Microscopic RBC 50-100 per hpf (0-3) H 06/08/16 13:25 Urine Microscopic WBC 5-15 per hpf (0-3) H 06/08/16 13:25 Ur Culture Indicated? YES (NO) A 06/08/16 13:25 IgG 384 mg/dL (768-1632) L 06/07/16 06:41 Free [place] LC, Quant 2.53 mg/dL (0.33-1.94) H 06/07/16 06:41 Free [place]/Lambda Ratio 2.50 (0.26-1.65) H 06/07/16 06:41 General appearance: Present: mild distress - Respiratory Respiratory exam: Present: decreased breath sounds Additional comments: Occasional rhonchi and wheezing throughout - Cardiovascular Cardiovascular exam: Present: irregular rhythm - GI/Abdominal GI/Abdominal exam: Present: normal bowel sounds, soft - Extremities Exam Extremities exam: Present: normal capillary refill, normal inspection - Neurological Exam Neurological exam: Present: alert, oriented X3, strengths equal and symetr throughout - Skin Skin exam: Present: dry, warm Palliative Quality Palliative Quality: Screen for Code Status: Yes, Screen for Goals of Care: Yes, Screen for Pain: Yes, If Pain Regimen Started, Initiate Bowel Regimen: NA, Screen for Nausea/Vomitting: Yes Code Status: 06/01/16 12:40 CODE [Resuscitation Status: Active] [RES] Routine Comment: Resuscitation Status: Full Code - Labs CBC & Chem 7: 06/11/16 00:38 06/11/16 00:38 Labs: Laboratory Results - last 24 hr 06/07/16 06/10/16 06/10/16 06:41 12:13 16:15 WBC RBC Hgb Hct MCV MCH MCHC RDW Plt Count MPV Immature Gran % Seg Neutrophils % Lymphocytes % Monocytes % Eosinophils % Basophils % Neutrophils # Lymphocytes # Monocytes # Eosinophils # Basophils # Platelet Estimate Immature Plt Fraction PT INR APTT Sodium Potassium Chloride Carbon Dioxide BUN Creatinine Est GFR ( Amer) Est GFR (Non-Af Amer) BUN/Creatinine Ratio Glucose POC Glucose 249 H 223 H Calculated Osmolality Calcium Total Bilirubin AST ALT Alkaline Phosphatase Prot Electrophor EER SEE NOTE Serum Total Protein Total Protein (PEP) 5.00 L Albumin Albumin (PEP) 3.36 L Globulin Albumin/Globulin Ratio Cljof-7-Vfeedwiwz 0.23 Uifeq-7-Qsbprpxpj 0.47 L Beta Globulins 0.52 Gamma Globulins 0.43 L PEP Interpretation SEE NOTE Serum Immunofix Reflex [place] Done IgG 384 L IgA 157 IgM 94 06/10/16 06/11/16 06/11/16 20:52 00:38 00:38 WBC 17.5 H RBC 2.51 L Hgb 8.5 L Hct 25.0 L MCV 99.6 MCH 33.9 H MCHC 34.0 RDW 13.1 Plt Count 65 L MPV 10.4 Immature Gran % 1.8 Seg Neutrophils % 92.1 Lymphocytes % 1.0 Monocytes % 5.0 Eosinophils % 0.0 Basophils % 0.1 Neutrophils # 16.1 H Lymphocytes # 0.2 L Monocytes # 0.9 Eosinophils # 0.0 Basophils # 0.0 Platelet Estimate Decreased L Immature Plt Fraction 2.4 PT 15.3 H INR 1.4 APTT 25.2 L Sodium Potassium Chloride Carbon Dioxide BUN Creatinine Est GFR ( Amer) Est GFR (Non-Af Amer) BUN/Creatinine Ratio Glucose POC Glucose 105 H Calculated Osmolality Calcium Total Bilirubin AST ALT Alkaline Phosphatase Prot Electrophor EER Serum Total Protein Total Protein (PEP) Albumin Albumin (PEP) Globulin Albumin/Globulin Ratio Fnris-8-Ffjqvhmtp Wiahg-1-Gyyfgajqs Beta Globulins Gamma Globulins PEP Interpretation Serum Immunofix Reflex IgG IgA IgM 06/11/16 06/11/16 00:38 07:33 WBC RBC Hgb Hct MCV MCH MCHC RDW Plt Count MPV Immature Gran % Seg Neutrophils % Lymphocytes % Monocytes % Eosinophils % Basophils % Neutrophils # Lymphocytes # Monocytes # Eosinophils # Basophils # Platelet Estimate Immature Plt Fraction PT INR APTT Sodium 151 H Potassium 4.1 Chloride 114 H Carbon Dioxide 28 BUN 119 H Creatinine 1.38 H Est GFR ( Amer) > 60 Est GFR (Non-Af Amer) 51 L BUN/Creatinine Ratio 86 H Glucose 80 POC Glucose 140 H Calculated Osmolality 349 H Calcium 8.4 L Total Bilirubin 0.7 AST 21 ALT 16 Alkaline Phosphatase 33 L Prot Electrophor EER Serum Total Protein 5.2 L Total Protein (PEP) Albumin 3.6 Albumin (PEP) Globulin 1.6 L Albumin/Globulin Ratio 2.3 H Wvoeo-3-Ncrwsxdjr Emfkc-9-Dovclnfwk Beta Globulins Gamma Globulins PEP Interpretation Serum Immunofix Reflex IgG IgA IgM - Impressions Impressions Videofluoroscopic Swallow 06/11/16 00:01 IMPRESSION: Swallowing mechanism grossly within normal limits without evidence of aspiration. Please see separate speech pathology report for full discussion of findings and recommendations. D/ / Joceline Plata MD / Joceline Plata MD Interpreting Provider: Joceline Plata MD - ABG Interpretation ABG results: ABG ABG pH TNP 05/31/16 03:59 ABG pCO2 TNP 05/31/16 03:59 ABG pO2 TNP 05/31/16 03:59 ABG O2 Saturation TNP 05/31/16 03:59 PT/INR, D-dimer PT 15.3 Seconds (9.4-12.1) H 06/11/16 00:38 Consult Discharge Plan - Plan Referrals: Saud Potter MD [Primary Care Provider] - 06/19/16 3:00 pm Sudha Benton DO [Partnered Physician] - 06/23/16 1:10 pm
--- NOTE | 2016-06-11 15:33 | Internal Med Progress Note ---
Date of Encounter: 06/10/16 Time of Encounter: 15:31 - Assessment and plan (1) COPD exacerbation Current Visit: No Status: Acute Assessment and plan: Will continue ABX : Cefepeme : day 5 Iv Steroids tapering dosages. BDAs 06/10/2016. Antibiotics: Cefepime:Day 6 IV steroids: Tapering dosages Bronchodilators. I had an long discussion with patient's son who is a power of information coder. Patient's son claims that she understood the severity of his father's illness. Patient's son is not keen for intubation/ventilation and any heroic measures including CPR. We will get palliative care consult to reevaluate patient's condition. 06/11/2016. We had a long discussion with the patient and patient's family. Along with me social security specialist GANG PUSHER Mr Craig was present. Mr. Craig explained patient and his family at length regarding the possible options to have symptoms of placement. Patient had medical questions which were answered by me. Patient chose his CODE STATUS: DNR comfort care arrest. The patient will let us know tomorrow regarding the intubation. (2) Acute kidney injury Current Visit: No Status: Acute Assessment and plan: Monitor BUN and creatinine. Avoid nephrotoxins. Steroid tapering dosages Nephrology on Board nad will follow recommendations. 06/10/2016. Renal function stabilized. Nephrology on the Board. We will follow their recommendation. 06/11/2016 Renal function stabilizes. Discussed with the nephrology. Possibility of a GI bleed was raised. Patient's respiratory status is too weak to go for any further intervention. All this above discussed with the patient. (3) Very severe chronic obstructive pulmonary disease Current Visit: No Status: Chronic Assessment and plan: will talk to family and patient to consider palliative care re evaluation again 06/10/2016. Spoken to patient's son. Please see above. (4) Hypertension Current Visit: No Status: Chronic Assessment and plan: Stable Qualifiers: Hypertension type: essential hypertension Qualified Code(s): I10 - Essential (primary) hypertension (5) Atrial fibrillation with RVR Current Visit: Yes Status: Acute Assessment and plan: Atrial fibrillation with RVR, better rate control now wall with metoprolol and oral diltiazem. Appreciate cardiology recs. Started on Eliquis by cardiology. - Subjective Interval history: seen and examined no new issues patient is complaining of occasional 06/10/2016. Patient seen and examined. Patient is little drowsy and answers to questions after 1 or 2 recall. Patient's son is at bedside. Patient has occasional shortness of breath, cough and dizziness. 06/11/2016. Patient seen and examined. Patient is alert and oriented. Patient's family at bedside. Patient is complaining of shortness of breath. - Constitutional Vitals: Temp Pulse Resp BP Pulse Ox 97.7 F 101 18 103/72 95 06/11/16 12:12 06/11/16 12:12 06/11/16 12:12 06/11/16 12:12 06/11/16 12:12 General appearance: Present: A&O X 2, mild distress, pleasant, answers questions appropriately - Head Head exam: Present: atraumatic, normocephalic - Eye Eye exam: Present: PERRL, conjuntiva pink, sclera anicteric Pupils: Present: PERRL - Neck Neck exam general surgery: Present: supple, trachea midline. Absent: lymphadenopathy - Respiratory Respiratory exam: Present: CTAB. Absent: accessory muscle use, rales, rhonchi, wheezes - Cardiovascular Cardiovascular exam: Present: RRR, +S1, +S2. Absent: diastolic murmur, gallop, rubs, systolic murmur - GI/Abdominal GI/Abdominal exam: Present: normal bowel sounds, soft, no peritoneal signs. Absent: distended, tenderness - Extremities Exam Extremities exam: Present: warm, radial pulses palpable and symetrical. Absent : calf tenderness, cyanotic, pedal edema - Neurological Exam Neurological exam: Present: CN II-XII intact, oriented X3, no focal deficits. Absent: pronater drift, facial droop, speech deficit - Skin Skin exam: Present: dry, intact Internal Medicine: Result - Labs CBC & Chem 7: 06/11/16 00:38 06/11/16 00:38 Labs: Short CBC 06/11/16 Range/Units 00:38 WBC 17.5 H (4.3-11.1) K/mcL Hgb 8.5 L (12.9-16.9) g/dL Hct 25.0 L (37.5-50.1) % Plt Count 65 L (140-400) K/mcL Neutrophils # 16.1 H (1.6-8.9) K/mcL BMP 06/11/16 00:38 Sodium 151 H Potassium 4.1 Chloride 114 H Carbon Dioxide 28 BUN 119 H Creatinine 1.38 H Glucose 80 Calcium 8.4 L Liver Function 06/11/16 Range/Units 00:38 Total Bilirubin 0.7 (0.2-1.2) mg/dL AST 21 (5-34) Units/L ALT 16 (0-55) Units/L Alkaline Phosphatase 33 L (38-126) Units/L Albumin 3.6 (3.5-5.0) g/dL - ABG Interpretation ABG results: ABG ABG pH TNP 05/31/16 03:59 ABG pCO2 TNP 05/31/16 03:59 ABG pO2 TNP 05/31/16 03:59 ABG O2 Saturation TNP 05/31/16 03:59 PT/INR, D-dimer PT 15.3 Seconds (9.4-12.1) H 06/11/16 00:38 - Impressions Impressions Videofluoroscopic Swallow 06/11/16 00:01 IMPRESSION: Swallowing mechanism grossly within normal limits without evidence of aspiration. Please see separate speech pathology report for full discussion of findings and recommendations. D/ / Joceline Plata MD / Joceline Plata MD Interpreting Provider: Joceline Plata MD Consult Discharge Plan - Plan Referrals: Saud Potter MD [Primary Care Provider] - 06/19/16 3:00 pm Sudha Benton DO [Partnered Physician] - 06/23/16 1:10 pm
--- NOTE | 2016-06-11 15:57 | Nephrology Progress Note ---
Date of Encounter: 06/11/16 Time of Encounter: 11:30 - Assessment and Plan (1) Acute exacerbation of chronic obstructive airways disease Current Visit: Yes Status: Acute Per primary team but appears end- stage. Palliative care dicsussions today Continue nebs with mucomyst, steroids etc (2) Acute kidney injury superimposed on CKD Current Visit: Yes Status: Acute SCr improved at 1.38, GFR 51 which is great after albuin given UOP acceptable, unclear if well documented Can use diuretics only intermittently as would not like to worse BUN and SCr (3) Azotemia Current Visit: Yes Status: Acute BUN stable but still out of proportion to SCr likely due to steroids but another concern is for bleeding given dropping hgb levels GI workup per primary team if warranted (4) Hypernatremia Current Visit: Yes Status: Acute Sodium noted at 151 with water deficit over 3 liters. Will start free water today Subjective Principal diagnosis: azotemia Interval history: Pt seen and exemained feeling a little better after a rough night with resp distress requiring more nebs, increase steroids and a one time dose of bumex. Case discussed with primary team while awaiting further palliative care discussions Objective - Vital Signs Vital signs: Vital Signs Temp Pulse Resp BP Pulse Ox 06/11/16 12:12 97.7 F 101 18 103/72 95 06/11/16 11:09 18 99 06/11/16 10:10 97.3 F L 104 14 103/54 99 06/11/16 04:30 24 93 L 06/11/16 04:00 110 17 130/96 96 06/10/16 23:43 22 96 06/10/16 22:00 106 24 158/78 97 06/10/16 20:33 24 92 L 06/10/16 16:16 18 98 06/10/16 16:11 98.6 F 94 16 140/63 100 Intake and Output 06/10/16 06/11/16 06/11/16 23:59 07:59 15:59 Intake Total 100 / 100 0 / 0 530 / 530 Output Total 600 / 600 700 / 700 Balance -500 / -500 -700 / -700 530 / 530 Intake: IV Fluids 100 / 100 Flexbumin 25 gm In 100 ml 100 / 100 @ 60 mls/hr IVPB Q12HR [facility] Rx#:[id number] Oral 0 / 0 0 / 0 480 / 480 Free Water 50 / 50 Output: Urine 0 / 0 Catheter 600 / 600 700 / 700 Other: Meal refused Breakfast Percent of Meal Consumed 0% 80% Weight 79.2 kg Blood Glucose* 105 140 375 Patient Weight 06/11/16 23:59 Weight 79.2 kg - General Appearance General appearance: Present: chronically ill, frail EENT: Present: ATNC, mucous membranes moist Neck: Present: no JVD, supple Respiratory: Present: wheezing, course breath sounds Cardiology: Present: edema, normal S1, normal S2 Gastrointestinal: Present: no tenderness, no guarding Integumentary: Present: warm and dry Neurologic: Present: alert and oriented x3 Musculoskeletal: Present: no deformities Psychiatric: Present: mood/affect appropriate - Lab 06/11/16 00:38 06/11/16 00:38 Most recent lab results ABG pH TNP 05/31/16 03:59 ABG pCO2 TNP 05/31/16 03:59 ABG pO2 TNP 05/31/16 03:59 ABG HCO3 TNP 05/31/16 03:59 ABG O2 Saturation TNP 05/31/16 03:59 Calcium 8.4 mg/dL (8.6-10.8) L 06/11/16 00:38 Phosphorus 4.3 mg/dL (2.3-4.7) 06/07/16 06:41 Magnesium 2.4 mg/dL (1.6-2.6) 06/03/16 04:27 Urine Creatinine 58 mg/dL 06/08/16 13:25 Urine Sodium < 20.0 mEq/L 06/08/16 13:25 Consult Discharge Plan - Plan Referrals: Saud Potter MD [Primary Care Provider] - 06/19/16 3:00 pm Sudha Benton DO [Partnered Physician] - 06/23/16 1:10 pm
[2016-06-11] MEDS: D5% in Water 1,000 ML IVC SCH (16:30)
[2016-06-11] MEDS: *HR* Metoprolol 5 MG/5 ML VIAL IVP PRN (20:35)
[2016-06-11] MEDS ORDERED: Bumetanide 1 MG/4 ML VIAL IVP ONE (21:42)
[2016-06-12] MEDS: Ipratropium/Albuterol Neb 3 ML IH SCH ×6 (00:29→21:15)
[2016-06-12] MEDS: Acetylcysteine 10% 2 ML INHSOL IH SCH ×6 (00:29→21:16)
[2016-06-12] MEDS: methylPREDNISolone 125 MG/2 ML VIAL IVP SCH ×4 (00:58→23:43)
[2016-06-12] MEDS: GuaiFENesin Liq 200 MG/10 ML UDC PO SCH ×5 (00:58→23:41)
[2016-06-12] MEDS: Chloraseptic Spray 177 ML BOTTLE MM PRN (06:02)
[2016-06-12 06:53] LABS: Basophils % 0.1 %; Immature Granulocytes % 1.8 % (0-4); Mean Corpuscular Volume 101.1 fL (83.0-100.0); Red Cell Distribution Width 13.3 % (11.5-14.5)
[2016-06-12 06:55] LABS: Hematocrit 18.5 % (37.5-50.1); Hemoglobin 6.3 g/dL (12.9-16.9); Immature Platelets 3.5 % (1.1-6.1); Lymphocytes # 0.2 K/mcL (0.6-4.6); Lymphocytes % 1.2 %; Mean Corpuscular HGB Conc 34.1 g/dL (31.6-35.5); Mean Corpuscular Hemoglobin 34.4 pg (28.0-33.3); Mean Platelet Volume 11.4 fL (9.4-12.4); Monocytes # 0.5 K/mcL (0.0-1.3); Monocytes % 3.3 %; Neutrophils # 15.3 K/mcL (1.6-8.9); Red Blood Count 1.83 M/mcL (4.19-5.50); Segmented Neutrophils % 93.6 %
[2016-06-12 07:10] LABS: Alanine Aminotransferase 21 Units/L (0-55); Albumin 3.4 g/dL (3.5-5.0); Albumin/Globulin Ratio 2.6 (1.1-2.2); Alkaline Phosphatase 40 Units/L (38-126); Aspartate Amino Transferase 29 Units/L (5-34); BUN/Creatinine Ratio 91 (6-26); Bilirubin,Total 0.6 mg/dL (0.2-1.2); Blood Urea Nitrogen 119 mg/dL (8-26); Carbon Dioxide 27 mEq/L (19-29); Chloride 110 mEq/L (98-109); Globulin 1.3 g/dL (2.4-3.5); Glucose 210 mg/dL (70-99); Osmolality,Calculated 342 (280-300); Potassium 3.9 mEq/L (3.5-4.5); Sodium 144 mEq/L (136-145); Total Protein 4.7 g/dL (6.0-8.3); eGFR For African Americans > 60 (> 60); eGFR For Non-African Americans 54 (> 60)
[2016-06-12 07:12] LABS: Platelet Count 53 K/mcL (140-400)
[2016-06-12] MEDS: Insulin LISPRO 300 UNITS/3 ML VIAL SQ SCH ×4 (08:25→20:45)
[2016-06-12] MEDS: Aspirin Enteric Coated 81 MG Tablet PO SCH (08:45)
[2016-06-12] MEDS: Nystatin SUSP 5 ML UD.LIQ PO SCH ×4 (08:46→20:45)
[2016-06-12] MEDS: Diltiazem CD (24hr) 180 MG CAPSULE PO SCH ×2 (08:46→20:45)
[2016-06-12] MEDS: Silvasorb 44.4 ML TUBE TP SCH (10:29)
--- NOTE | 2016-06-12 11:49 | Palliative Progress Note ---
Date of Encounter: 06/11/16 Time of Encounter: 10:00 - Assessment and plan (1) Dyspnea Current Visit: No Status: Acute Assessment and plan: Not much improved. Continues with steroids/nebs/supportive oxygen. He did decide that he did not want to be intubated or placed on ventilator. Qualifiers: Dyspnea type: unspecified Qualified Code(s): R06.00 - Dyspnea, unspecified (2) Goals of care, counseling/discussion Current Visit: Yes Status: Acute Assessment and plan: Patient still adamant that he desires to go home. For transfusion today, PPI added- no scope planned at present. Code status changed to DNR/DNI and state form updated. Will continue to follow. (3) Very severe chronic obstructive pulmonary disease Current Visit: No Status: Chronic (4) COPD exacerbation Current Visit: No Status: Acute (5) Atrial fibrillation with RVR Current Visit: Yes Status: Acute - Time Spent With Patient Total time spent is greater than 50% in coordination of care (as documented) at patient's floor/unit and/or counseling patient: 25 - 35 minutes - Subjective Interval history: Patient resting in bed. Awake and alert. C/o shortness of breath. Eating well. Denies constipation, but no BM for 3 days documented. Denies pain. Hgb 6.3 today - will be transfused. Guerline collins. - Constitutional Vitals: Abnormal lab results WBC 16.3 K/mcL (4.3-11.1) H 06/12/16 06:15 RBC 1.83 M/mcL (4.19-5.50) L 06/12/16 06:15 Hgb 6.3 g/dL (12.9-16.9) L D 06/12/16 06:15 Hct 18.5 % (37.5-50.1) L 06/12/16 06:15 MCV 101.1 fL (83.0-100.0) H 06/12/16 06:15 MCH 34.4 pg (28.0-33.3) H 06/12/16 06:15 Plt Count 53 K/mcL (140-400) L 06/12/16 06:15 Neutrophils # 15.3 K/mcL (1.6-8.9) H 06/12/16 06:15 Lymphocytes # 0.2 K/mcL (0.6-4.6) L 06/12/16 06:15 Platelet Estimate Decreased (Normal) L 06/11/16 00:38 PT 15.3 Seconds (9.4-12.1) H 06/11/16 00:38 APTT 25.2 Seconds (26.0-36.0) L 06/11/16 00:38 Chloride 110 mEq/L (98-109) H 06/12/16 06:15 BUN 119 mg/dL (8-26) H 06/12/16 06:15 Creatinine 1.31 mg/dL (0.72-1.25) H 06/12/16 06:15 Est GFR (Non-Af Amer) 54 (> 60) L 06/12/16 06:15 BUN/Creatinine Ratio 91 (6-26) H 06/12/16 06:15 Glucose 210 mg/dL (70-99) H 06/12/16 06:15 POC Glucose 288 (58-89) H 06/12/16 11:09 Calculated Osmolality 342 (280-300) H 06/12/16 06:15 Uric Acid 14.4 mg/dL (3.5-7.2) H 06/08/16 04:55 Calcium 8.0 mg/dL (8.6-10.8) L 06/12/16 06:15 Troponin I 0.17 ng/mL (0-0.03) H* 05/30/16 08:30 B-Natriuretic Peptide 479 pg/mL (0-100) H 06/07/16 06:41 Serum Total Protein 4.7 g/dL (6.0-8.3) L 06/12/16 06:15 Total Protein (PEP) 5.00 g/dL (6.00-8.30) L 06/07/16 06:41 Albumin 3.4 g/dL (3.5-5.0) L 06/12/16 06:15 Albumin (PEP) 3.36 g/dL (3.75-5.01) L 06/07/16 06:41 Globulin 1.3 g/dL (2.4-3.5) L 06/12/16 06:15 Albumin/Globulin Ratio 2.6 (1.1-2.2) H 06/12/16 06:15 Btyox-1-Vsgidefby 0.47 g/dL (0.48-1.05) L 06/07/16 06:41 Gamma Globulins 0.43 g/dL (0.62-1.51) L 06/07/16 06:41 TSH 0.103 mcIU/mL (0.350-4.840) L 06/03/16 04:27 Urine Clarity Cloudy (Clear) A 06/08/16 13:25 Urine Blood Large (Negative) H 06/08/16 13:25 Ur Leukocyte Esterase Small (Negative) H 06/08/16 13:25 Urine Microscopic RBC 50-100 per hpf (0-3) H 06/08/16 13:25 Urine Microscopic WBC 5-15 per hpf (0-3) H 06/08/16 13:25 Ur Culture Indicated? YES (NO) A 06/08/16 13:25 IgG 384 mg/dL (768-1632) L 06/07/16 06:41 Free [place] LC, Quant 2.53 mg/dL (0.33-1.94) H 06/07/16 06:41 Free [place]/Lambda Ratio 2.50 (0.26-1.65) H 06/07/16 06:41 General appearance: Present: no acute distress - Respiratory Additional comments: Wheezes and course rhonchi throughout all lung sheppard. - Cardiovascular Cardiovascular exam: Present: irregular rhythm - GI/Abdominal GI/Abdominal exam: Present: normal bowel sounds, soft - Extremities Exam Additional comments: 2-3+ edema bilateral lower extremities. Both feet wrapped r/t heel breakdown - Neurological Exam Neurological exam: Present: alert, oriented X3, strengths equal and symetr throughout - Skin Skin exam: Present: dry, pallor, warm Palliative Quality Palliative Quality: Screen for Code Status: Yes, Screen for Goals of Care: Yes, Screen for Pain: Yes, If Pain Regimen Started, Initiate Bowel Regimen: NA, Screen for Nausea/Vomitting: Yes Code Status: 06/01/16 12:40 CODE [Resuscitation Status: Active] [RES] Routine Comment: Resuscitation Status: Full Code 06/11/16 15:14 DNR [Resuscitation Status: Active] [RES] Routine Comment: Resuscitation Status: DNR-Comfort Care-Arrest 06/12/16 09:26 DNR [Resuscitation Status: Active] [RES] Routine Comment: Resuscitation Status: [id number] - Labs CBC & Chem 7: 06/12/16 06:15 06/12/16 06:15 Labs: Laboratory Results - last 24 hr 06/11/16 06/11/16 06/11/16 12:01 16:33 20:27 WBC RBC Hgb Hct MCV MCH MCHC RDW Plt Count MPV Immature Gran % Seg Neutrophils % Lymphocytes % Monocytes % Eosinophils % Basophils % Neutrophils # Lymphocytes # Monocytes # Eosinophils # Basophils # Immature Plt Fraction Sodium Potassium Chloride Carbon Dioxide BUN Creatinine Est GFR ( Amer) Est GFR (Non-Af Amer) BUN/Creatinine Ratio Glucose POC Glucose 375 H 250 H 290 H Calculated Osmolality Calcium Total Bilirubin AST ALT Alkaline Phosphatase Serum Total Protein Albumin Globulin Albumin/Globulin Ratio 06/12/16 06/12/16 06/12/16 06:15 06:15 11:09 WBC 16.3 H RBC 1.83 L Hgb 6.3 L D Hct 18.5 L MCV 101.1 H MCH 34.4 H MCHC 34.1 RDW 13.3 Plt Count 53 L MPV 11.4 Immature Gran % 1.8 Seg Neutrophils % 93.6 Lymphocytes % 1.2 Monocytes % 3.3 Eosinophils % 0.0 Basophils % 0.1 Neutrophils # 15.3 H Lymphocytes # 0.2 L Monocytes # 0.5 Eosinophils # 0.0 Basophils # 0.0 Immature Plt Fraction 3.5 Sodium 144 Potassium 3.9 Chloride 110 H Carbon Dioxide 27 BUN 119 H Creatinine 1.31 H Est GFR ( Amer) > 60 Est GFR (Non-Af Amer) 54 L BUN/Creatinine Ratio 91 H Glucose 210 H POC Glucose 288 H Calculated Osmolality 342 H Calcium 8.0 L Total Bilirubin 0.6 AST 29 ALT 21 Alkaline Phosphatase 40 Serum Total Protein 4.7 L Albumin 3.4 L Globulin 1.3 L Albumin/Globulin Ratio 2.6 H - ABG Interpretation ABG results: ABG ABG pH TNP 05/31/16 03:59 ABG pCO2 TNP 05/31/16 03:59 ABG pO2 TNP 05/31/16 03:59 ABG O2 Saturation TNP 05/31/16 03:59 PT/INR, D-dimer PT 15.3 Seconds (9.4-12.1) H 06/11/16 00:38 Consult Discharge Plan - Plan Referrals: Saud Potter MD [Primary Care Provider] - 06/19/16 3:00 pm Sudha Benton DO [Partnered Physician] - 06/23/16 1:10 pm
--- NOTE | 2016-06-12 13:59 | Nephrology Progress Note ---
<DaljitKailyn christianson - Last Filed: 06/12/16 13:57> Date of Encounter: 06/12/16 Time of Encounter: 13:57 - Assessment and Plan (1) Azotemia Current Visit: Yes Status: Acute Due to steroids for COPD exacerbation. Wean IV steroids as tolerated (by primary team). Bumex may be given intermittently. Low salt diet. --Diet reviewed with patient (and family) today and salad dressing packet provided to patient had 440 mg of sodium. CKD lab analysis pending. Patient receiving blood today due to anemia. Give bumex between units. Mucomyst with duonebs. Continue renal protective strategy. (2) Acute kidney injury Current Visit: No Status: Acute (3) CKD (chronic kidney disease), stage III Current Visit: Yes Status: Chronic (4) Acute exacerbation of chronic obstructive airways disease Current Visit: Yes Status: Acute Subjective Principal diagnosis: azotemia Interval history: Patient seen and examined. No signs of uremia. Pitting edema of lower extremities. Diet reviewed and noted that salad dressing being given to patient has 440 mg of sodium. Objective - Vital Signs Vital signs: Vital Signs Temp Pulse Resp BP Pulse Ox 06/12/16 11:58 97.6 F 104 18 125/79 97 06/12/16 11:20 18 99 06/12/16 07:53 18 99 06/12/16 07:20 97.8 F 100 18 132/88 99 06/12/16 05:51 97.9 F 100 18 124/70 97 06/12/16 04:33 24 98 06/12/16 01:03 97.8 F 86 20 147/89 97 06/12/16 00:29 18 93 L 06/11/16 20:37 18 143/97 94 L 06/11/16 20:19 98.1 F 123 20 99 06/11/16 15:55 18 95 Intake and Output 06/11/16 06/12/16 06/12/16 23:59 07:59 15:59 Intake Total 100 / 100 460 / 460 Output Total 1450 / 1450 1400 / 1400 250 / 250 Balance -1350 / -1350 -940 / -940 -250 / -250 Intake: Oral 100 / 100 460 / 460 Output: Catheter 1450 / 1450 1400 / 1400 250 / 250 Other: Weight 80.3 kg Blood Glucose* 290 288 Patient Weight 06/12/16 23:59 Weight 80.3 kg - General Appearance General appearance: Present: chronically ill Respiratory: Present: course breath sounds, rhonchi Cardiology: Present: no murmurs, edema, regular rate, regular rhythm, normal S1 , normal S2 Additional Comments: bruising of upper extremities Neurologic: Present: no focal deficit, alert and oriented x3, CN 3-12 intact Musculoskeletal: Present: no deformities Psychiatric: Present: mood/affect appropriate, cooperative - Lab 06/12/16 06:15 06/12/16 06:15 Most recent lab results ABG pH TNP 05/31/16 03:59 ABG pCO2 TNP 05/31/16 03:59 ABG pO2 TNP 05/31/16 03:59 ABG HCO3 TNP 05/31/16 03:59 ABG O2 Saturation TNP 05/31/16 03:59 Calcium 8.0 mg/dL (8.6-10.8) L 06/12/16 06:15 Phosphorus 4.3 mg/dL (2.3-4.7) 06/07/16 06:41 Magnesium 2.4 mg/dL (1.6-2.6) 06/03/16 04:27 Urine Creatinine 58 mg/dL 06/08/16 13:25 Urine Sodium < 20.0 mEq/L 06/08/16 13:25 Consult Discharge Plan - Plan Referrals: Saud Potter MD [Primary Care Provider] - 06/19/16 3:00 pm Sudha Benton DO [Partnered Physician] - 06/23/16 1:10 pm <Nick Aceves - Last Filed: 06/15/16 23:01> Date of Encounter: 06/12/16 - Assessment and Plan (1) Acute exacerbation of chronic obstructive airways disease Current Visit: Yes Status: Acute (2) Acute kidney injury superimposed on CKD Current Visit: Yes Status: Acute (3) Azotemia Current Visit: Yes Status: Acute (4) Hypernatremia Current Visit: Yes Status: Acute Objective - Vital Signs Vital signs: Vital Signs Temp Pulse Resp BP Pulse Ox 06/15/16 20:57 97.6 F 92 24 130/65 94 06/15/16 19:30 22 91 06/15/16 15:53 18 96 06/15/16 15:10 97.6 F 78 19 130/72 98 06/15/16 12:07 18 95 06/15/16 11:01 97.8 F 82 18 131/81 95 06/15/16 09:19 18 99 06/15/16 07:18 97.5 F L 96 18 112/61 98 06/15/16 05:00 97.9 F 86 26 119/60 94 06/15/16 04:50 18 99 06/15/16 00:13 21 144/70 98 Intake and Output 06/15/16 06/15/16 06/15/16 07:59 15:59 23:59 Intake Total 1000 / 1000 360 / 360 Output Total 300 / 300 600 / 600 Balance 700 / 700 360 / 360 -600 / -600 Intake: IV Fluids 1000 / 1000 0.9 % Sodium Chloride 1, 1000 / 1000 000 ML @ 50 mls/hr IVC . Q20H [facility] Rx#:[id number] Oral 0 / 0 360 / 360 Output: Urine 300 / 300 600 / 600 Other: Meal Lunch Percent of Meal Consumed 100% # Urine Diapers 1 Weight 84.6 kg Blood Glucose* 227 336 248 Patient Weight 06/15/16 23:59 Weight 84.6 kg - Lab 06/15/16 17:16 06/15/16 17:16 Most recent lab results ABG pH TNP 05/31/16 03:59 ABG pCO2 TNP 05/31/16 03:59 ABG pO2 TNP 05/31/16 03:59 ABG HCO3 TNP 05/31/16 03:59 ABG O2 Saturation TNP 05/31/16 03:59 Calcium 7.5 mg/dL (8.6-10.8) L 06/15/16 17:16 Phosphorus 4.3 mg/dL (2.3-4.7) 06/07/16 06:41 Magnesium 2.4 mg/dL (1.6-2.6) 06/03/16 04:27 Urine Creatinine 58 mg/dL 06/08/16 13:25 Urine Sodium < 20.0 mEq/L 06/08/16 13:25 - Attending Attestation I examined this patient and my medical decision-making was reviewed with the FUNERAL HOME DIRECTOR/PA/Advanced Practice Nurse/Resident Physician. I agree with the documented findings, disposition and treatment plan as described except to the extent set forth below. Agree with plan, new labs pending but overall SCr has improved and stabilized while BUN remains elevated on steroids, will monitor and hopefully taper soon.
--- NOTE | 2016-06-12 17:03 | Internal Med Progress Note ---
Date of Encounter: 06/12/16 Time of Encounter: 17:01 - Assessment and plan (1) COPD exacerbation Current Visit: No Status: Acute Assessment and plan: Will continue ABX : Cefepeme : day 5 Iv Steroids tapering dosages. BDAs 06/10/2016. Antibiotics: Cefepime:Day 6 IV steroids: Tapering dosages Bronchodilators. I had an long discussion with patient's son who is a power of personal injury attorney. Patient's son claims that she understood the severity of his father's illness. Patient's son is not keen for intubation/ventilation and any heroic measures including CPR. We will get palliative care consult to reevaluate patient's condition. 06/11/2016. We had a long discussion with the patient and patient's family. Along with me neonatal social worker MECHANICAL TEST ENGINEER Mr Craig was present. Mr. Craig explained patient and his family at length regarding the possible options to have symptoms of placement. Patient had medical questions which were answered by me. Patient chose his CODE STATUS: DNR comfort care arrest. The patient will let us know tomorrow regarding the intubation. 06/02/2016. Patient new CODE STATUS now is: DNR comfort care arrest DNI. Patient is more alert and oriented as compared to yesterday. Patient's pain is much better and is under control. (2) Acute kidney injury Current Visit: No Status: Acute Assessment and plan: Monitor BUN and creatinine. Avoid nephrotoxins. Steroid tapering dosages Nephrology on Board nad will follow recommendations. 06/10/2016. Renal function stabilized. Nephrology on the Board. We will follow their recommendation. 06/11/2016 Renal function stabilizes. Discussed with the nephrology. Possibility of a GI bleed was raised. Patient's respiratory status is too weak to go for any further intervention. All this above discussed with the patient. (3) Very severe chronic obstructive pulmonary disease Current Visit: No Status: Chronic Assessment and plan: will talk to family and patient to consider palliative care re evaluation again 06/10/2016. Spoken to patient's son. Please see above. (4) Hypertension Current Visit: No Status: Chronic Assessment and plan: Stable Qualifiers: Hypertension type: essential hypertension Qualified Code(s): I10 - Essential (primary) hypertension (5) Atrial fibrillation with RVR Current Visit: Yes Status: Acute Assessment and plan: Atrial fibrillation with RVR, better rate control now wall with metoprolol and oral diltiazem. Appreciate cardiology recs. Started on Eliquis by cardiology. - Subjective Interval history: seen and examined no new issues patient is complaining of occasional 06/10/2016. Patient seen and examined. Patient is little drowsy and answers to questions after 1 or 2 recall. Patient's son is at bedside. Patient has occasional shortness of breath, cough and dizziness. 06/11/2016. Patient seen and examined. Patient is alert and oriented. Patient's family at bedside. Patient is complaining of shortness of breath. 06/12/2016 Patient seen and examined. Chart reviewed. Patient is alert and oriented. Patient's family is at bedside. - Constitutional Vitals: Temp Pulse Resp BP Pulse Ox 98.6 F 91 20 124/64 100 06/12/16 16:13 06/12/16 16:13 06/12/16 16:13 06/12/16 16:13 06/12/16 16:13 General appearance: Present: A&O X 2, mild distress, pleasant, answers questions appropriately - Head Head exam: Present: atraumatic, normocephalic - Eye Eye exam: Present: PERRL, conjuntiva pink, sclera anicteric Pupils: Present: PERRL - Neck Neck exam general surgery: Present: supple, trachea midline. Absent: lymphadenopathy - Respiratory Respiratory exam: Present: CTAB. Absent: accessory muscle use, rales, rhonchi, wheezes - Cardiovascular Cardiovascular exam: Present: RRR, +S1, +S2. Absent: diastolic murmur, gallop, rubs, systolic murmur - GI/Abdominal GI/Abdominal exam: Present: normal bowel sounds, soft, no peritoneal signs. Absent: distended, tenderness - Extremities Exam Extremities exam: Present: warm, radial pulses palpable and symetrical. Absent : calf tenderness, cyanotic, pedal edema - Neurological Exam Neurological exam: Present: CN II-XII intact, oriented X3, no focal deficits. Absent: pronater drift, facial droop, speech deficit - Skin Skin exam: Present: dry, intact Internal Medicine: Result - Labs CBC & Chem 7: 06/12/16 06:15 06/12/16 06:15 Labs: Short CBC 06/12/16 Range/Units 06:15 WBC 16.3 H (4.3-11.1) K/mcL Hgb 6.3 L D (12.9-16.9) g/dL Hct 18.5 L (37.5-50.1) % Plt Count 53 L (140-400) K/mcL Neutrophils # 15.3 H (1.6-8.9) K/mcL BMP 06/12/16 06:15 Sodium 144 Potassium 3.9 Chloride 110 H Carbon Dioxide 27 BUN 119 H Creatinine 1.31 H Glucose 210 H Calcium 8.0 L Liver Function 06/12/16 Range/Units 06:15 Total Bilirubin 0.6 (0.2-1.2) mg/dL AST 29 (5-34) Units/L ALT 21 (0-55) Units/L Alkaline Phosphatase 40 (38-126) Units/L Albumin 3.4 L (3.5-5.0) g/dL - ABG Interpretation ABG results: ABG ABG pH TNP 05/31/16 03:59 ABG pCO2 TNP 05/31/16 03:59 ABG pO2 TNP 05/31/16 03:59 ABG O2 Saturation TNP 05/31/16 03:59 PT/INR, D-dimer PT 15.3 Seconds (9.4-12.1) H 06/11/16 00:38 Consult Discharge Plan - Plan Referrals: Saud Potter MD [Primary Care Provider] - 06/19/16 3:00 pm Sudha Benton DO [Partnered Physician] - 06/23/16 1:10 pm
[2016-06-12] MEDS: D5% in Water 1,000 ML IVC SCH (18:38)
[2016-06-12] MEDS: Pantoprazole 40 MG VIAL IVP SCH (18:42)
[2016-06-12] MEDS ORDERED: 0.9 % Sodium Chloride 250 ML ONE (21:45)
[2016-06-13] MEDS: Ipratropium/Albuterol Neb 3 ML IH SCH ×7 (00:18→23:40)
[2016-06-13] MEDS: Acetylcysteine 10% 2 ML INHSOL IH SCH ×7 (00:19→23:40)
[2016-06-13] MEDS ORDERED: 0.9 % Sodium Chloride 250 ML ONE (01:22)
[2016-06-13] MEDS ORDERED: Bumetanide 1 MG/4 ML VIAL IVP ONE ×2 (01:31→13:21)
[2016-06-13] MEDS: Pantoprazole 40 MG VIAL IVP SCH ×2 (05:12→17:06)
[2016-06-13] MEDS: GuaiFENesin Liq 200 MG/10 ML UDC PO SCH ×4 (05:12→23:57)
[2016-06-13 07:41] LABS: Alanine Aminotransferase 22 Units/L (0-55); Albumin 2.9 g/dL (3.5-5.0); Albumin/Globulin Ratio 2.1 (1.1-2.2); Alkaline Phosphatase 42 Units/L (38-126); Aspartate Amino Transferase 30 Units/L (5-34); BUN/Creatinine Ratio 93 (6-26); Bilirubin,Total 0.6 mg/dL (0.2-1.2); Blood Urea Nitrogen 119 mg/dL (8-26); Calcium 7.9 mg/dL (8.6-10.8); Carbon Dioxide 21 mEq/L (19-29); Chloride 112 mEq/L (98-109); Globulin 1.4 g/dL (2.4-3.5); Glucose 160 mg/dL (70-99); Osmolality,Calculated 339 (280-300); Sodium 144 mEq/L (136-145); Total Protein 4.3 g/dL (6.0-8.3); eGFR For African Americans > 60 (> 60); eGFR For Non-African Americans 55 (> 60)
[2016-06-13] MEDS: Insulin LISPRO 300 UNITS/3 ML VIAL SQ SCH ×5 (09:32→20:42)
[2016-06-13] MEDS: Diltiazem CD (24hr) 180 MG CAPSULE PO SCH ×2 (09:37→20:41)
[2016-06-13] MEDS: Nystatin SUSP 5 ML UD.LIQ PO SCH ×4 (09:37→20:41)
[2016-06-13] MEDS: Aspirin Enteric Coated 81 MG Tablet PO SCH (09:37)
[2016-06-13] MEDS: methylPREDNISolone 125 MG/2 ML VIAL IVP SCH ×3 (09:37→23:57)
[2016-06-13] MEDS: Silvasorb 44.4 ML TUBE TP SCH (09:38)
[2016-06-13] MEDS ORDERED: Acetaminophen 325 MG TABLET PO PRN (10:19)
[2016-06-13 10:41] LABS: Basophils % 0.1 %; Hematocrit 22.2 % (37.5-50.1); Hemoglobin 7.8 g/dL (12.9-16.9); Immature Granulocytes % 2.1 % (0-4); Immature Platelets 2.7 % (1.1-6.1); Lymphocytes # 0.2 K/mcL (0.6-4.6); Lymphocytes % 1.3 %; Mean Corpuscular HGB Conc 35.1 g/dL (31.6-35.5); Mean Corpuscular Hemoglobin 32.8 pg (28.0-33.3); Mean Corpuscular Volume 93.3 fL (83.0-100.0); Mean Platelet Volume 11.3 fL (9.4-12.4); Platelet Count 44 K/mcL (140-400); Red Blood Count 2.38 M/mcL (4.19-5.50); Red Cell Distribution Width 16.2 % (11.5-14.5); Segmented Neutrophils % 93.5 %
[2016-06-13 10:42] LABS: Monocytes # 0.6 K/mcL (0.0-1.3)
[2016-06-13 10:43] LABS: Platelet Estimate Decreased (Normal)
--- NOTE | 2016-06-13 12:51 | Internal Med Progress Note ---
Date of Encounter: 06/13/16 Time of Encounter: 12:45 - Assessment and plan (1) GI bleed Current Visit: Yes Status: Acute Assessment and plan: Possibility of a GI bleed is extremely high. Gastroenterology was contacted and case discussed with the gastroenterology. Patient was transfused 2 units of blood (packed red blood cell). Yesterday patient's hemoglobin was 6.3, this morning patient's hemoglobin is 7.8. Patient is receiving intravenous 40 mg PPI 2 times a day. This patient has advanced terminal COPD, if this patient gets sedation for endoscopy, he will end up with intubation/ventilation/tracheostomy. I have spoken this possibility with the patient's son and patient himself at length. Patient would like to rethink about his decision when it time comes for a repeat endoscopy. At this point we will transfuse patient 1 more packed red blood cell. Gastroenterology/patient's family updated about this plan. Gastroenterology accepted and agreed with this plan. Patient's family accepted and agreed this plan above. Qualifiers: GI bleed type/associated pathology: unspecified gastrointestinal hemorrhage type Qualified Code(s): K92.2 - Gastrointestinal hemorrhage, unspecified (2) COPD exacerbation Current Visit: No Status: Acute Assessment and plan: Will continue ABX : Cefepeme : day 5 Iv Steroids tapering dosages. BDAs 06/10/2016. Antibiotics: Cefepime:Day 6 IV steroids: Tapering dosages Bronchodilators. I had an long discussion with patient's son who is a power of bankruptcy attorney. Patient's son claims that she understood the severity of his father's illness. Patient's son is not keen for intubation/ventilation and any heroic measures including CPR. We will get palliative care consult to reevaluate patient's condition. 06/11/2016. We had a long discussion with the patient and patient's family. Along with me hospital social worker SEWING ROOM SUPERVISOR Mr Craig was present. MrZaid Craig explained patient and his family at length regarding the possible options to have symptoms of placement. Patient had medical questions which were answered by me. Patient chose his CODE STATUS: DNR comfort care arrest. The patient will let us know tomorrow regarding the intubation. 06/12/2016. Patient new CODE STATUS now is: DNR comfort care arrest DNI. Patient is more alert and oriented as compared to yesterday. Patient's pain is much better and is under control. 06/13/2016. Continue present treatment. (3) Acute kidney injury Current Visit: No Status: Acute Assessment and plan: Monitor BUN and creatinine. Avoid nephrotoxins. Steroid tapering dosages Nephrology on Board nad will follow recommendations. 06/10/2016. Renal function stabilized. Nephrology on the Board. We will follow their recommendation. 06/11/2016 Renal function stabilizes. Discussed with the nephrology. Possibility of a GI bleed was raised. Patient's respiratory status is too weak to go for any further intervention. All this above discussed with the patient. (4) Very severe chronic obstructive pulmonary disease Current Visit: No Status: Chronic Assessment and plan: will talk to family and patient to consider palliative care re evaluation again 06/10/2016. Spoken to patient's son. Please see above. (5) Hypertension Current Visit: No Status: Resolved Assessment and plan: Stable Qualifiers: Hypertension type: essential hypertension Qualified Code(s): I10 - Essential (primary) hypertension (6) Atrial fibrillation with RVR Current Visit: Yes Status: Acute Assessment and plan: Atrial fibrillation with RVR, better rate control now wall with metoprolol and oral diltiazem. Appreciate cardiology recs. Started on Eliquis by cardiology. 06/13/2016. Elliquis is on hold for now - Subjective Interval history: seen and examined no new issues patient is complaining of occasional 06/10/2016. Patient seen and examined. Patient is little drowsy and answers to questions after 1 or 2 recall. Patient's son is at bedside. Patient has occasional shortness of breath, cough and dizziness. 06/11/2016. Patient seen and examined. Patient is alert and oriented. Patient's family at bedside. Patient is complaining of shortness of breath. 06/12/2016 Patient seen and examined. Chart reviewed. Patient is alert and oriented. Patient's family is at bedside. 06/13/2016 Patient seen and examined. Chart reviewed. Patient complains of dark, tarry stools. Patient's son is at bedside. - Constitutional Vitals: Temp Pulse Resp BP Pulse Ox 97.7 F 99 17 128/70 97 06/13/16 11:06 06/13/16 11:06 06/13/16 11:17 06/13/16 11:06 06/13/16 11:17 General appearance: Present: A&O X 2, mild distress, pleasant, answers questions appropriately - Head Head exam: Present: atraumatic, normocephalic - Eye Eye exam: Present: PERRL, conjuntiva pink, sclera anicteric Pupils: Present: PERRL - Neck Neck exam general surgery: Present: supple, trachea midline. Absent: lymphadenopathy - Respiratory Respiratory exam: Present: CTAB. Absent: accessory muscle use, rales, rhonchi, wheezes - Cardiovascular Cardiovascular exam: Present: RRR, +S1, +S2. Absent: diastolic murmur, gallop, rubs, systolic murmur - GI/Abdominal GI/Abdominal exam: Present: normal bowel sounds, soft, no peritoneal signs. Absent: distended, tenderness - Extremities Exam Extremities exam: Present: warm, radial pulses palpable and symetrical. Absent : calf tenderness, cyanotic, pedal edema - Neurological Exam Neurological exam: Present: CN II-XII intact, oriented X3, no focal deficits. Absent: pronater drift, facial droop, speech deficit - Skin Skin exam: Present: dry, intact Internal Medicine: Result - Labs CBC & Chem 7: 06/13/16 10:18 06/13/16 07:10 Labs: Short CBC 06/13/16 Range/Units 10:18 WBC 18.2 H (4.3-11.1) K/mcL Hgb 7.8 L D (12.9-16.9) g/dL Hct 22.2 L (37.5-50.1) % Plt Count 44 L (140-400) K/mcL Neutrophils # 17.0 H (1.6-8.9) K/mcL BMP 06/13/16 07:10 Sodium 144 Potassium 4.0 Chloride 112 H Carbon Dioxide 21 BUN 119 H Creatinine 1.28 H Glucose 160 H Calcium 7.9 L Liver Function 06/13/16 Range/Units 07:10 Total Bilirubin 0.6 (0.2-1.2) mg/dL AST 30 (5-34) Units/L ALT 22 (0-55) Units/L Alkaline Phosphatase 42 (38-126) Units/L Albumin 2.9 L (3.5-5.0) g/dL - ABG Interpretation ABG results: ABG ABG pH TNP 05/31/16 03:59 ABG pCO2 TNP 05/31/16 03:59 ABG pO2 TNP 05/31/16 03:59 ABG O2 Saturation TNP 05/31/16 03:59 PT/INR, D-dimer PT 15.3 Seconds (9.4-12.1) H 06/11/16 00:38 Consult Discharge Plan - Plan Referrals: Saud Potter MD [Primary Care Provider] - 06/19/16 3:00 pm Sudha Benton DO [Partnered Physician] - 06/23/16 1:10 pm
[2016-06-13] MEDS: 0.9 % Sodium Chloride 1,000 ML IVC SCH (13:00)
--- NOTE | 2016-06-13 13:21 | Nephrology Progress Note ---
Date of Encounter: 06/13/16 Time of Encounter: 13:10 - Assessment and Plan (1) Acute exacerbation of chronic obstructive airways disease Current Visit: Yes Status: Acute Per primary team but appears end- stage. Code status noted Continue nebs with mucomyst, steroids etc (2) Acute kidney injury superimposed on CKD Current Visit: Yes Status: Acute SCr continues to sty stable at 1.28, GFR 55 today which is great but BUN remains elevated but the same at 119 due o steroids and bleeding. 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 UOP very good at 2775 Can use diuretics only intermittently as would not like to worsen BUN and SCr Will follow peripherally at this point (3) Azotemia Current Visit: Yes Status: Acute BUN stable but still out of proportion to SCr likely due to steroids and bleeding GI workup being considered, pt to decide (4) Hypernatremia Current Visit: Yes Status: Acute Resolved Subjective Principal diagnosis: azotemia Interval history: Pt seen and examined. Interim events noted Objective - Vital Signs Vital signs: Vital Signs Temp Pulse Resp BP Pulse Ox 06/13/16 12:55 98.2 F 87 16 120/67 88 06/13/16 11:17 17 97 06/13/16 11:06 97.7 F 99 18 128/70 99 06/13/16 08:30 19 122/60 99 06/13/16 07:00 97.7 F 105 18 122/60 98 06/13/16 04:57 18 99 06/13/16 04:42 97.6 F 101 20 121/67 97 06/13/16 03:42 95.4 F L 95 16 134/81 95 06/13/16 01:32 96.5 F L 77 16 118/45 99 06/13/16 01:26 96.1 F L 89 16 115/62 98 06/13/16 00:54 95.8 F L 85 16 114/59 96 06/13/16 00:20 18 100 06/12/16 22:12 96.1 F L 94 16 136/64 94 06/12/16 21:50 97.3 F L 83 16 135/59 100 06/12/16 21:17 18 98 06/12/16 20:31 97.7 F 105 20 113/58 100 06/12/16 16:13 98.6 F 91 20 124/64 100 06/12/16 15:43 18 97 Intake and Output 06/12/16 06/13/16 06/13/16 23:59 07:59 15:59 Intake Total 1440 / 1440 800 / 800 315 / 315 Output Total 1125 / 1125 850 / 850 Balance 315 / 315 800 / 800 -535 / -535 Intake: IV Fluids 1000 / 1000 Dextrose 5% 1,000 ML @ 75 1000 / 1000 mls/hr IVC .[id number] [facility] Rx#:[id number] Oral 440 / 440 100 / 100 240 / 240 Blood Product 0 / 0 700 / 700 75 / 75 Rbcs Leuko Poor As-1 0 / 0 350 / 350 Unit [id number] Rbcs Leuko Poor As-1 350 / 350 Unit [id number] Rbcs Leuko Poor As-1 75 / 75 Unit [id number] Output: Catheter 1125 / 1125 850 / 850 Other: Meal Breakfast Percent of Meal Consumed 50% Stool Size Moderate Stool Characteristics Tarry Stool Color Black # Voids 0 # Bowel Movements 1 Weight 81.3 kg Blood Glucose* 321 170 352 Patient Weight 06/13/16 23:59 Weight 81.3 kg - General Appearance General appearance: Present: chronically ill, frail EENT: Present: ATNC, mucous membranes moist Neck: Present: no JVD, supple Respiratory: Present: course breath sounds Cardiology: Present: edema, normal S1, normal S2 Gastrointestinal: Present: no tenderness, no guarding Integumentary: Present: warm and dry Neurologic: Present: no focal deficit Musculoskeletal: Present: no deformities Psychiatric: Present: mood/affect appropriate - Lab 06/15/16 17:16 06/15/16 17:16 Most recent lab results ABG pH TNP 05/31/16 03:59 ABG pCO2 TNP 05/31/16 03:59 ABG pO2 TNP 05/31/16 03:59 ABG HCO3 TNP 05/31/16 03:59 ABG O2 Saturation TNP 05/31/16 03:59 Calcium 7.9 mg/dL (8.6-10.8) L 06/13/16 07:10 Phosphorus 4.3 mg/dL (2.3-4.7) 06/07/16 06:41 Magnesium 2.4 mg/dL (1.6-2.6) 06/03/16 04:27 Urine Creatinine 58 mg/dL 06/08/16 13:25 Urine Sodium < 20.0 mEq/L 06/08/16 13:25 Consult Discharge Plan - Plan Referrals: Saud Potter MD [Primary Care Provider] - 06/19/16 3:00 pm Sudha Benton DO [Partnered Physician] - 06/23/16 1:10 pm
[2016-06-14] MEDS: Ipratropium/Albuterol Neb 3 ML IH SCH ×5 (04:10→20:46)
[2016-06-14] MEDS: Acetylcysteine 10% 2 ML INHSOL IH SCH ×5 (04:10→20:46)
[2016-06-14] MEDS: GuaiFENesin Liq 200 MG/10 ML UDC PO SCH ×4 (05:43→23:45)
[2016-06-14] MEDS: Pantoprazole 40 MG VIAL IVP SCH ×2 (05:45→17:01)
[2016-06-14] MEDS: Aspirin Enteric Coated 81 MG Tablet PO SCH (09:52)
[2016-06-14] MEDS: Diltiazem CD (24hr) 180 MG CAPSULE PO SCH ×2 (09:53→20:39)
[2016-06-14] MEDS: methylPREDNISolone 125 MG/2 ML VIAL IVP SCH ×3 (09:53→23:45)
[2016-06-14] MEDS: Nystatin SUSP 5 ML UD.LIQ PO SCH ×4 (09:53→20:39)
[2016-06-14] MEDS: 0.9 % Sodium Chloride 1,000 ML IVC SCH (09:54)
[2016-06-14] MEDS: Insulin LISPRO 300 UNITS/3 ML VIAL SQ SCH ×4 (09:54→20:39)
[2016-06-14] MEDS: Silvasorb 44.4 ML TUBE TP SCH (09:54)
--- NOTE | 2016-06-14 10:04 | Internal Med Progress Note ---
Date of Encounter: 06/14/16 Time of Encounter: 10:00 - Assessment and plan (1) GI bleed Current Visit: Yes Status: Acute Assessment and plan: Possibility of a GI bleed is extremely high. Gastroenterology was contacted and case discussed with the gastroenterology. Patient was transfused 2 units of blood (packed red blood cell). Yesterday patient's hemoglobin was 6.3, this morning patient's hemoglobin is 7.8. Patient is receiving intravenous 40 mg PPI 2 times a day. This patient has advanced terminal COPD, if this patient gets sedation for endoscopy, he will end up with intubation/ventilation/tracheostomy. I have spoken this possibility with the patient's son and patient himself at length. Patient would like to rethink about his decision when it time comes for a repeat endoscopy. At this point we will transfuse patient 1 more packed red blood cell. Gastroenterology/patient's family updated about this plan. Gastroenterology accepted and agreed with this plan. Patient's family accepted and agreed this plan above. 06/14/2016 Noted that patient still has dark, tarry stools. In the last 48 hours, altogether patient received 3 units of packed red blood cells. Patient appears to be more drowsy today. Family is at bedside. Family does understand that this is probably a terminal stage of his life. Palliative care is on the board. We will continue to keep you monitoring very closely. Will discuss with palliative care tomorrow for possible GIP ( general inpatient ) status if family agrees. Qualifiers: GI bleed type/associated pathology: unspecified gastrointestinal hemorrhage type Qualified Code(s): K92.2 - Gastrointestinal hemorrhage, unspecified (2) COPD exacerbation Current Visit: No Status: Acute Assessment and plan: Will continue ABX : Cefepeme : day 5 Iv Steroids tapering dosages. BDAs 06/10/2016. Antibiotics: Cefepime:Day 6 IV steroids: Tapering dosages Bronchodilators. I had an long discussion with patient's son who is a power of privacy attorney. Patient's son claims that she understood the severity of his father's illness. Patient's son is not keen for intubation/ventilation and any heroic measures including CPR. We will get palliative care consult to reevaluate patient's condition. 06/11/2016. We had a long discussion with the patient and patient's family. Along with me social service liaison [employer] Mr Rafa was present. Mr. Craig explained patient and his family at length regarding the possible options to have symptoms of placement. Patient had medical questions which were answered by me. Patient chose his CODE STATUS: DNR comfort care arrest. The patient will let us know tomorrow regarding the intubation. 06/12/2016. Patient new CODE STATUS now is: DNR comfort care arrest DNI. Patient is more alert and oriented as compared to yesterday. Patient's pain is much better and is under control. 06/13/2016. Continue present treatment. 06/14/2016 continue present management. (3) Acute kidney injury Current Visit: No Status: Acute Assessment and plan: Monitor BUN and creatinine. Avoid nephrotoxins. Steroid tapering dosages Nephrology on Board nad will follow recommendations. 06/10/2016. Renal function stabilized. Nephrology on the Board. We will follow their recommendation. 06/11/2016 Renal function stabilizes. Discussed with the nephrology. Possibility of a GI bleed was raised. Patient's respiratory status is too weak to go for any further intervention. All this above discussed with the patient. (4) Very severe chronic obstructive pulmonary disease Current Visit: No Status: Chronic Assessment and plan: will talk to family and patient to consider palliative care re evaluation again 06/10/2016. Spoken to patient's son. Please see above. (5) Atrial fibrillation with RVR Current Visit: Yes Status: Acute Assessment and plan: Atrial fibrillation with RVR, better rate control now wall with metoprolol and oral diltiazem. Appreciate cardiology recs. Started on Eliquis by cardiology. 06/13/2016. Elliquis is on hold for now - Subjective Interval history: seen and examined no new issues patient is complaining of occasional 06/10/2016. Patient seen and examined. Patient is little drowsy and answers to questions after 1 or 2 recall. Patient's son is at bedside. Patient has occasional shortness of breath, cough and dizziness. 06/11/2016. Patient seen and examined. Patient is alert and oriented. Patient's family at bedside. Patient is complaining of shortness of breath. 06/12/2016 Patient seen and examined. Chart reviewed. Patient is alert and oriented. Patient's family is at bedside. 06/13/2016 Patient seen and examined. Chart reviewed. Patient complains of dark, tarry stools. Patient's son is at bedside. 06/14/2016 Patient seen and examined. Chart reviewed. Patient appears to be more confused as compared to yesterday Patient's son is at bedside. Patient does not have any complaints at this point. Patient's son does understand that this is a terminal stage of his father's life. Noted at that patient's hemoglobin is stable. He received 1 packed red blood cells transfusion yesterday - Constitutional Vitals: Temp Pulse Resp BP Pulse Ox 97.3 F L 101 18 137/72 99 06/14/16 07:15 06/14/16 07:15 06/14/16 08:00 06/14/16 08:00 06/14/16 08:00 General appearance: Present: A&O X 2, mild distress, pleasant, answers questions appropriately - Head Head exam: Present: atraumatic, normocephalic - Eye Eye exam: Present: PERRL, conjuntiva pink, sclera anicteric Pupils: Present: PERRL - Neck Neck exam general surgery: Present: supple, trachea midline. Absent: lymphadenopathy - Respiratory Respiratory exam: Present: CTAB. Absent: accessory muscle use, rales, rhonchi, wheezes - Cardiovascular Cardiovascular exam: Present: RRR, +S1, +S2. Absent: diastolic murmur, gallop, rubs, systolic murmur - GI/Abdominal GI/Abdominal exam: Present: normal bowel sounds, soft, no peritoneal signs. Absent: distended, tenderness - Extremities Exam Extremities exam: Present: warm, radial pulses palpable and symetrical. Absent : calf tenderness, cyanotic, pedal edema - Neurological Exam Neurological exam: Present: CN II-XII intact, oriented X3, no focal deficits. Absent: pronater drift, facial droop, speech deficit - Skin Skin exam: Present: dry, intact Internal Medicine: Result - Labs CBC & Chem 7: 06/13/16 10:18 06/13/16 07:10 Labs: Short CBC 06/13/16 Range/Units 10:18 WBC 18.2 H (4.3-11.1) K/mcL Hgb 7.8 L D (12.9-16.9) g/dL Hct 22.2 L (37.5-50.1) % Plt Count 44 L (140-400) K/mcL Neutrophils # 17.0 H (1.6-8.9) K/mcL - ABG Interpretation ABG results: ABG ABG pH TNP 05/31/16 03:59 ABG pCO2 TNP 05/31/16 03:59 ABG pO2 TNP 05/31/16 03:59 ABG O2 Saturation TNP 05/31/16 03:59 PT/INR, D-dimer PT 15.3 Seconds (9.4-12.1) H 06/11/16 00:38 Consult Discharge Plan - Plan Referrals: Saud Potter MD [Primary Care Provider] - 06/19/16 3:00 pm Sudha Benton DO [Partnered Physician] - 06/23/16 1:10 pm
[2016-06-14 10:26] LABS: Basophils % 0.1 %; Hemoglobin 9.1 g/dL (12.9-16.9); Immature Granulocytes % 2.8 % (0-4); Lymphocytes # 0.3 K/mcL (0.6-4.6); Lymphocytes % 1.8 %; Mean Corpuscular HGB Conc 33.7 g/dL (31.6-35.5); Mean Corpuscular Hemoglobin 30.6 pg (28.0-33.3); Mean Corpuscular Volume 90.9 fL (83.0-100.0); Mean Platelet Volume 11.7 fL (9.4-12.4); Monocytes # 0.5 K/mcL (0.0-1.3); Monocytes % 2.5 %; Red Blood Count 2.97 M/mcL (4.19-5.50); Red Cell Distribution Width 16.9 % (11.5-14.5); Segmented Neutrophils % 92.8 %
[2016-06-14 10:27] LABS: Platelet Count 42 K/mcL (140-400)
[2016-06-14 10:41] LABS: BUN/Creatinine Ratio 72 (6-26); Blood Urea Nitrogen 99 mg/dL (8-26); Calcium 8.1 mg/dL (8.6-10.8); Carbon Dioxide 18 mEq/L (19-29); Chloride 114 mEq/L (98-109); Glucose 255 mg/dL (70-99); Osmolality,Calculated 346 (280-300); Sodium 148 mEq/L (136-145); eGFR For African Americans > 60 (> 60); eGFR For Non-African Americans 51 (> 60)
[2016-06-14 10:44] LABS: Potassium 4.5 mEq/L (3.5-4.5)
[2016-06-15] MEDS: Acetylcysteine 10% 2 ML INHSOL IH SCH ×6 (00:11→19:28)
[2016-06-15] MEDS: Ipratropium/Albuterol Neb 3 ML IH SCH ×7 (00:13→23:19)
[2016-06-15] MEDS: GuaiFENesin Liq 200 MG/10 ML UDC PO SCH ×3 (04:31→18:33)
[2016-06-15] MEDS: Pantoprazole 40 MG VIAL IVP SCH ×2 (04:31→18:33)
[2016-06-15] MEDS: 0.9 % Sodium Chloride 1,000 ML IVC SCH (04:31)
[2016-06-15] MEDS: Diltiazem CD (24hr) 180 MG CAPSULE PO SCH ×2 (08:07→20:34)
[2016-06-15] MEDS: Aspirin Enteric Coated 81 MG Tablet PO SCH (08:07)
[2016-06-15] MEDS: methylPREDNISolone 125 MG/2 ML VIAL IVP SCH ×2 (08:08→17:04)
[2016-06-15] MEDS: Insulin LISPRO 300 UNITS/3 ML VIAL SQ SCH ×4 (08:08→20:34)
[2016-06-15] MEDS: Nystatin SUSP 5 ML UD.LIQ PO SCH ×4 (08:08→20:35)
--- NOTE | 2016-06-15 13:48 | Gastroenterology Consult Note ---
<Flip Kline - Last Filed: 06/15/16 13:46> Date of Encounter: 06/15/16 Time of Encounter: 10:15 - Assessment and plan (1) Melena Current Visit: Yes Status: Acute Assessment and plan: Plan for EGD tomorrow to r/o esophagitis, gastritis, duodenitis, PUD, MW tear, or AVM. NPO at midnight. There is significant concern that the patient will require intubation follow sedation for EGD. Pt was agreeable to proceeding with EGD at this time. (2) Anemia Current Visit: Yes Status: Acute Assessment and plan: Likely secondary to GI bleed and chronic disease. Hgb on admission was 14.5 and droped to 6.3 on 06/12. He has received total of 3 units PRBC. Hgb this AM 9.1. Plan for EGD tomorrow. Continue to monitor CBC and transfuse PRBC as needed. Qualifiers: Anemia type: unspecified type Qualified Code(s): D64.9 - Anemia, unspecified (3) Very severe chronic obstructive pulmonary disease Current Visit: No Status: Chronic Assessment and plan: Management per primary team. (4) CKD (chronic kidney disease), stage III Current Visit: Yes Status: Chronic (5) Acute kidney injury superimposed on CKD Current Visit: Yes Status: Acute - Time Spent With Patient Total time spent is greater than 50% in coordination of care (as documented) at patient's floor/unit and/or counseling patient: GI History of Present Illness - Data of Consult Patient: known to practice within the last 3 years Consult date: 06/15/16 Requesting Physician: Timothy Villareal MD - Consult Narrative Reason for consult: GI Bleed History of present illness: Mr. White is a 71 year old male with PMHx of COPD, CKD, CAD, GERD, GI bleed, HLD, HTN, ID who presented to the ED with shortness of breath. He was found o be in respiratory failure and was intubated and placed on ventilator. We have been consulted due to GI bleed. Melena was noted on 06/13. Hgb on admission was 14.5 and droped to 6.3 on 06/12. He has received total of 3 units PRBC. He denies abdominal pain, BRBPR, nausea, or vomiting. There is significant concern that the patient will require intubation follow sedation for EGD. The pt changed his code status to DNR CCA, DNI on 06/12/16. Procedures: EGD 10/23/2014 nodule in the esophagus, congestive gastropathy Colonoscopy 05/24/2013 Dr. Kuhn: 2 tubular adenoma 5-8 mm at splenic flexure. Recommended repeat 3 years for surveillance NSAIDs: ASA Anticoagulation: Plavix Past Med Surg Social Fam HX - Past Medical History Medical history: atrial fibrillation, CHF, COPD, coronary artery disease, GERD, GI bleed, hyperlipidemia, hypertension, myocardial infarction, osteoporosis, valvular heart disease Psychiatric history: anxiety - Past Surgical History Surgical History: angioplasty/stent, appendectomy, carotid endarterectomy, heart valve replacement - Social History Smoking Status: Former smoker Smokeless Tobacco Status: No Alcohol use: heavy, recent Drug use: none - Family History Mother Family Member Ethnicity: Non- Living Status: Hx Family Cardiac Disorders: No Hx Family Respiratory Disorders: No Hx Family Cancer: Yes Hx Family GI Disorders: No Hx Family Endocrine Disorder: No Hx Family Neuromuscular Disorders: No Hx Family Neurologic Disorders: No Hx Family HEENT Disorders: No Hx Family Autoimmune Disorders: No - Gastrointestinal Gastrointestinal: Present: as per HPI - Constitutional Constitutional: as per HPI - EENT Eyes: as per HPI Ears: Present: as per HPI Nose, mouth and throat: Present: as per HPI - Cardiovascular Cardiovascular ROS: Present: as per HPI - Respiratory Respiratory IM: Present: as per HPI - Genitourinary Genitourinary: Absent: change in color, Urinary frequency - Neurological ROS Neurological GI: Present: as per HPI - Hematologic/Lymphatic Hematologic/Lymphatic pediatric: Present: as per HPI - Musculoskeletal Musculoskeletal ROS GI: Present: as per HPI - Integumentary Integumentary GI: Present: as per HPI - Psychiatric ROS Psychiatric GI: Present: as per HPI - Endocrine Endocrine IM: Present: as per HPI - Constitutional Vitals: Temp Pulse Resp BP Pulse Ox 97.8 F 82 18 131/81 95 06/15/16 11:01 06/15/16 11:01 06/15/16 12:07 06/15/16 11:01 06/15/16 12:07 General appearance: Present: cooperative, A&O X 3, no acute distress, answers questions appropriately - Head Head exam: Present: atraumatic, normocephalic - Eye Eye exam: Present: normal appearance, sclera anicteric - ENT ENT exam: Present: mucous membranes dry - Neck Neck exam general surgery: Present: normal inspection, trachea midline - Respiratory Respiratory exam: Present: decreased breath sounds, CTAB - Cardiovascular Cardiovascular exam: Present: RRR, +S1, +S2 - GI/Abdominal GI/Abdominal exam: Present: soft, no peritoneal signs. Absent: distended, firm , guarding, tenderness - Rectal Rectal exam: Present: deferred - Extremities Exam Extremities exam: Present: warm - Neurological Exam Neurological exam: Present: no focal deficits - Psychiatric Psychiatric exam: Present: normal affect, normal mood - Skin Skin exam: Present: dry, intact, normal color, warm Results - Labs CBC & Chem 7: 06/14/16 10:16 06/14/16 10:16 Labs: Last Result Calcium 8.1 mg/dL (8.6-10.8) L 06/14/16 10:16 Troponin I 0.17 ng/mL (0-0.03) H* 05/30/16 08:30 Entire Visit Hgb 9.1 g/dL (12.9-16.9) L 06/14/16 10:16 Hct 27.0 % (37.5-50.1) L 06/14/16 10:16 PT 15.3 Seconds (9.4-12.1) H 06/11/16 00:38 Total Bilirubin 0.6 mg/dL (0.2-1.2) 06/13/16 07:10 AST 30 Units/L (5-34) 06/13/16 07:10 ALT 22 Units/L (0-55) 06/13/16 07:10 - ABG ABG results: ABG ABG pH TNP 05/31/16 03:59 ABG pCO2 TNP 05/31/16 03:59 ABG pO2 TNP 05/31/16 03:59 ABG O2 Saturation TNP 05/31/16 03:59 PT/INR, D-dimer PT 15.3 Seconds (9.4-12.1) H 06/11/16 00:38 Consult Discharge Plan - Plan Referrals: Saud Potter MD [Primary Care Provider] - 06/19/16 3:00 pm Sudha Benton DO [Partnered Physician] - 06/23/16 1:10 pm <Velasquez Taylor - Last Filed: 06/15/16 18:37> Date of Encounter: 06/15/16 Time of Encounter: 17:00 - Time Spent With Patient Total time spent is greater than 50% in coordination of care (as documented) at patient's floor/unit and/or counseling patient: GI History of Present Illness - Data of Consult Requesting Physician: Timothy Villareal MD - Consult Narrative History of present illness: Mr. White is a 71 year old male - Constitutional Vitals: Temp Pulse Resp BP Pulse Ox 97.6 F 78 18 130/72 96 06/15/16 15:10 06/15/16 15:10 06/15/16 15:53 06/15/16 15:10 06/15/16 15:53 Results - Labs CBC & Chem 7: 06/15/16 17:16 06/15/16 17:16 Labs: Last Result Calcium 7.5 mg/dL (8.6-10.8) L 06/15/16 17:16 Troponin I 0.17 ng/mL (0-0.03) H* 05/30/16 08:30 Entire Visit Hgb 9.6 g/dL (12.9-16.9) L 06/15/16 17:16 Hct 28.6 % (37.5-50.1) L 06/15/16 17:16 PT 15.3 Seconds (9.4-12.1) H 06/11/16 00:38 Total Bilirubin 0.6 mg/dL (0.2-1.2) 06/13/16 07:10 AST 30 Units/L (5-34) 06/13/16 07:10 ALT 22 Units/L (0-55) 06/13/16 07:10 - ABG ABG results: ABG ABG pH TNP 05/31/16 03:59 ABG pCO2 TNP 05/31/16 03:59 ABG pO2 TNP 05/31/16 03:59 ABG O2 Saturation TNP 05/31/16 03:59 PT/INR, D-dimer PT 15.3 Seconds (9.4-12.1) H 06/11/16 00:38 - Attending Attestation I examined this patient and my medical decision-making was reviewed with the PATIENT ASSESSMENT COORDINATOR/PA/Advanced Practice Nurse/Resident Physician. I agree with the documented findings, disposition and treatment plan as described except to the extent set forth below. Pt with end stage COPD now with melena and drop in his hemoglobin. Known peptic ulcer disease. Discussed with the patient that he is a very significant risk for respiratory decompensation during the procedure and there is a high risk that he may end up on the ventilator patient is in agreeable with the procedure and understand the risks
--- NOTE | 2016-06-15 15:56 | Palliative Progress Note ---
Date of Encounter: 06/15/16 Time of Encounter: 10:00 - Assessment and plan (1) Dyspnea Current Visit: No Status: Acute Assessment and plan: Patient continues on steroids/bronchodilators/Oxygen. Continue to monitor. Patient states it has improved. Qualifiers: Dyspnea type: unspecified Qualified Code(s): R06.00 - Dyspnea, unspecified (2) Goals of care, counseling/discussion Current Visit: Yes Status: Acute Assessment and plan: Patient states he is feeling better, and is still wanting to go home. However, he is consenting to rehab "for a bit". He is still declining hospice care upon discharge. He meets criteria for hospice on discharge, but does not have intense symptom issues to justify transition to inpt hospice, nor does he want hospice care at this time. EGD planned for tomorrow. (3) Very severe chronic obstructive pulmonary disease Current Visit: No Status: Chronic (4) COPD exacerbation Current Visit: No Status: Acute (5) Atrial fibrillation with RVR Current Visit: Yes Status: Acute - Time Spent With Patient Total time spent is greater than 50% in coordination of care (as documented) at patient's floor/unit and/or counseling patient: 25 - 35 minutes - Subjective Interval history: Patient up in chair - brother at bedside. States breathing is "doing better". Denies pain or discomfort. Denies constipation. Eating fair. - Constitutional Vitals: Abnormal lab results WBC 18.3 K/mcL (4.3-11.1) H 06/14/16 10:16 RBC 2.97 M/mcL (4.19-5.50) L 06/14/16 10:16 Hgb 9.1 g/dL (12.9-16.9) L 06/14/16 10:16 Hct 27.0 % (37.5-50.1) L 06/14/16 10:16 RDW 16.9 % (11.5-14.5) H 06/14/16 10:16 Plt Count 42 K/mcL (140-400) L 06/14/16 10:16 Neutrophils # 17.0 K/mcL (1.6-8.9) H 06/14/16 10:16 Lymphocytes # 0.3 K/mcL (0.6-4.6) L 06/14/16 10:16 Platelet Estimate Decreased (Normal) L 06/13/16 10:18 PT 15.3 Seconds (9.4-12.1) H 06/11/16 00:38 APTT 25.2 Seconds (26.0-36.0) L 06/11/16 00:38 Sodium 148 mEq/L (136-145) H 06/14/16 10:16 Chloride 114 mEq/L (98-109) H 06/14/16 10:16 Carbon Dioxide 18 mEq/L (19-29) L 06/14/16 10:16 BUN 99 mg/dL (8-26) H 06/14/16 10:16 Creatinine 1.38 mg/dL (0.72-1.25) H 06/14/16 10:16 Est GFR (Non-Af Amer) 51 (> 60) L 06/14/16 10:16 BUN/Creatinine Ratio 72 (6-26) H 06/14/16 10:16 Glucose 255 mg/dL (70-99) H 06/14/16 10:16 POC Glucose 325 (58-89) H 06/14/16 16:18 Calculated Osmolality 346 (280-300) H 06/14/16 10:16 Uric Acid 14.4 mg/dL (3.5-7.2) H 06/08/16 04:55 Calcium 8.1 mg/dL (8.6-10.8) L 06/14/16 10:16 Troponin I 0.17 ng/mL (0-0.03) H* 05/30/16 08:30 B-Natriuretic Peptide 479 pg/mL (0-100) H 06/07/16 06:41 Serum Total Protein 4.3 g/dL (6.0-8.3) L 06/13/16 07:10 Total Protein (PEP) 5.00 g/dL (6.00-8.30) L 06/07/16 06:41 Albumin 2.9 g/dL (3.5-5.0) L 06/13/16 07:10 Albumin (PEP) 3.36 g/dL (3.75-5.01) L 06/07/16 06:41 Globulin 1.4 g/dL (2.4-3.5) L 06/13/16 07:10 Iuwqg-[id number] 0.47 g/dL (0.48-1.05) L 06/07/16 06:41 Gamma Globulins 0.43 g/dL (0.62-1.51) L 06/07/16 06:41 TSH 0.103 mcIU/mL (0.350-4.840) L 06/03/16 04:27 Urine Clarity Cloudy (Clear) A 06/08/16 13:25 Urine Blood Large (Negative) H 06/08/16 13:25 Ur Leukocyte Esterase Small (Negative) H 06/08/16 13:25 Urine Microscopic RBC 50-100 per hpf (0-3) H 06/08/16 13:25 Urine Microscopic WBC 5-15 per hpf (0-3) H 06/08/16 13:25 Ur Culture Indicated? YES (NO) A 06/08/16 13:25 IgG 384 mg/dL (768-1632) L 06/07/16 06:41 Free [place] LC, Quant 2.53 mg/dL (0.33-1.94) H 06/07/16 06:41 Free [place]/Lambda Ratio 2.50 (0.26-1.65) H 06/07/16 06:41 General appearance: Present: no acute distress - Respiratory Respiratory exam: Present: decreased breath sounds, CTAB - Cardiovascular Cardiovascular exam: Present: irregular rhythm - GI/Abdominal GI/Abdominal exam: Present: normal bowel sounds, soft - Extremities Exam Extremities exam: Present: normal capillary refill, normal inspection - Neurological Exam Neurological exam: Present: alert, oriented X3, strengths equal and symetr throughout - Skin Skin exam: Present: dry, pallor, warm Palliative Quality Palliative Quality: Screen for Code Status: Yes, Screen for Goals of Care: Yes, Screen for Pain: Yes, If Pain Regimen Started, Initiate Bowel Regimen: NA, Screen for Nausea/Vomitting: Yes Code Status: 06/01/16 12:40 CODE [Resuscitation Status: Active] [RES] Routine Comment: Resuscitation Status: Full Code 06/11/16 15:14 DNR [Resuscitation Status: Active] [RES] Routine Comment: Resuscitation Status: DNR-Comfort Care-Arrest 06/12/16 09:26 DNR [Resuscitation Status: Active] [RES] Routine Comment: Resuscitation Status: [id number] - Labs CBC & Chem 7: 06/14/16 10:16 06/14/16 10:16 Labs: Laboratory Results - last 24 hr 06/14/16 06/14/16 10:39 16:18 POC Glucose 277 H 325 H - ABG Interpretation ABG results: ABG ABG pH TNP 05/31/16 03:59 ABG pCO2 TNP 05/31/16 03:59 ABG pO2 TNP 05/31/16 03:59 ABG O2 Saturation TNP 05/31/16 03:59 PT/INR, D-dimer PT 15.3 Seconds (9.4-12.1) H 06/11/16 00:38 Consult Discharge Plan - Plan Referrals: Saud Potter MD [Primary Care Provider] - 06/19/16 3:00 pm Sudha Benton DO [Partnered Physician] - 06/23/16 1:10 pm
--- NOTE | 2016-06-15 16:49 | Internal Med Progress Note ---
Date of Encounter: 06/15/16 Time of Encounter: 16:46 - Assessment and plan (1) GI bleed Current Visit: Yes Status: Acute Assessment and plan: Possibility of a GI bleed is extremely high. Gastroenterology was contacted and case discussed with the gastroenterology. Patient was transfused 2 units of blood (packed red blood cell). Yesterday patient's hemoglobin was 6.3, this morning patient's hemoglobin is 7.8. Patient is receiving intravenous 40 mg PPI 2 times a day. This patient has advanced terminal COPD, if this patient gets sedation for endoscopy, he will end up with intubation/ventilation/tracheostomy. I have spoken this possibility with the patient's son and patient himself at length. Patient would like to rethink about his decision when it time comes for a repeat endoscopy. At this point we will transfuse patient 1 more packed red blood cell. Gastroenterology/patient's family updated about this plan. Gastroenterology accepted and agreed with this plan. Patient's family accepted and agreed this plan above. 06/14/2016 Noted that patient still has dark, tarry stools. In the last 48 hours, altogether patient received 3 units of packed red blood cells. Patient appears to be more drowsy today. Family is at bedside. Family does understand that this is probably a terminal stage of his life. Palliative care is on the board. We will continue to keep you monitoring very closely. Will discuss with palliative care tomorrow for possible GIP ( general inpatient ) status if family agrees. 06/15/2106 Patient still has dark, tarry stools. awaiting for labs. Family and bedside. Discussion with palliative team. Per palliative team: Patient is still not a candidate for GIP bed. We will continue to treat patient. EGD tomorrow. Qualifiers: GI bleed type/associated pathology: unspecified gastrointestinal hemorrhage type Qualified Code(s): K92.2 - Gastrointestinal hemorrhage, unspecified (2) COPD exacerbation Current Visit: No Status: Acute Assessment and plan: Will continue ABX : Cefepeme : day 5 Iv Steroids tapering dosages. BDAs 06/10/2016. Antibiotics: Cefepime:Day 6 IV steroids: Tapering dosages Bronchodilators. I had an long discussion with patient's son who is a power of tax attorney. Patient's son claims that she understood the severity of his father's illness. Patient's son is not keen for intubation/ventilation and any heroic measures including CPR. We will get palliative care consult to reevaluate patient's condition. 06/11/2016. We had a long discussion with the patient and patient's family. Along with me social media director COPYRIGHT CLERK Mr Craig was present. Mr. Craig explained patient and his family at length regarding the possible options to have symptoms of placement. Patient had medical questions which were answered by me. Patient chose his CODE STATUS: DNR comfort care arrest. The patient will let us know tomorrow regarding the intubation. 06/12/2016. Patient new CODE STATUS now is: DNR comfort care arrest DNI. Patient is more alert and oriented as compared to yesterday. Patient's pain is much better and is under control. 06/13/2016. Continue present treatment. 06/14/2016 continue present management. (3) Acute kidney injury Current Visit: No Status: Acute Assessment and plan: Monitor BUN and creatinine. Avoid nephrotoxins. Steroid tapering dosages Nephrology on Board nad will follow recommendations. 06/10/2016. Renal function stabilized. Nephrology on the Board. We will follow their recommendation. 06/11/2016 Renal function stabilizes. Discussed with the nephrology. Possibility of a GI bleed was raised. Patient's respiratory status is too weak to go for any further intervention. All this above discussed with the patient. (4) Very severe chronic obstructive pulmonary disease Current Visit: No Status: Chronic Assessment and plan: will talk to family and patient to consider palliative care re evaluation again 06/10/2016. Spoken to patient's son. Please see above. (5) Atrial fibrillation with RVR Current Visit: Yes Status: Acute Assessment and plan: Atrial fibrillation with RVR, better rate control now wall with metoprolol and oral diltiazem. Appreciate cardiology recs. Started on Eliquis by cardiology. 06/13/2016. Elliquis is on hold for now - Subjective Interval history: seen and examined no new issues patient is complaining of occasional 06/10/2016. Patient seen and examined. Patient is little drowsy and answers to questions after 1 or 2 recall. Patient's son is at bedside. Patient has occasional shortness of breath, cough and dizziness. 06/11/2016. Patient seen and examined. Patient is alert and oriented. Patient's family at bedside. Patient is complaining of shortness of breath. 06/12/2016 Patient seen and examined. Chart reviewed. Patient is alert and oriented. Patient's family is at bedside. 06/13/2016 Patient seen and examined. Chart reviewed. Patient complains of dark, tarry stools. Patient's son is at bedside. 06/14/2016 Patient seen and examined. Chart reviewed. Patient appears to be more confused as compared to yesterday Patient's son is at bedside. Patient does not have any complaints at this point. Patient's son does understand that this is a terminal stage of his father's life. Noted at that patient's hemoglobin is stable. He received 1 packed red blood cells transfusion yesterday 06/15/2016 seen and examined. patient is alert and oriented. labs pending. seen by GI and noted that patient has EGD tomorrow - Constitutional Vitals: Temp Pulse Resp BP Pulse Ox 97.6 F 78 18 130/72 96 06/15/16 15:10 06/15/16 15:10 06/15/16 15:53 06/15/16 15:10 06/15/16 15:53 General appearance: Present: A&O X 2, mild distress, pleasant, answers questions appropriately - Head Head exam: Present: atraumatic, normocephalic - Eye Eye exam: Present: PERRL, conjuntiva pink, sclera anicteric Pupils: Present: PERRL - Neck Neck exam general surgery: Present: supple, trachea midline. Absent: lymphadenopathy - Respiratory Respiratory exam: Present: CTAB. Absent: accessory muscle use, rales, rhonchi, wheezes - Cardiovascular Cardiovascular exam: Present: RRR, +S1, +S2. Absent: diastolic murmur, gallop, rubs, systolic murmur - GI/Abdominal GI/Abdominal exam: Present: normal bowel sounds, soft, no peritoneal signs. Absent: distended, tenderness - Extremities Exam Extremities exam: Present: warm, radial pulses palpable and symetrical. Absent : calf tenderness, cyanotic, pedal edema - Neurological Exam Neurological exam: Present: CN II-XII intact, oriented X3, no focal deficits. Absent: pronater drift, facial droop, speech deficit - Skin Skin exam: Present: dry, intact Internal Medicine: Result - Labs CBC & Chem 7: 06/14/16 10:16 06/14/16 10:16 - ABG Interpretation ABG results: ABG ABG pH TNP 05/31/16 03:59 ABG pCO2 TNP 05/31/16 03:59 ABG pO2 TNP 05/31/16 03:59 ABG O2 Saturation TNP 05/31/16 03:59 PT/INR, D-dimer PT 15.3 Seconds (9.4-12.1) H 06/11/16 00:38 Consult Discharge Plan - Plan Referrals: Saud Potter MD [Primary Care Provider] - 06/19/16 3:00 pm Sudha Benton DO [Partnered Physician] - 06/23/16 1:10 pm
[2016-06-15] MEDS: Silvasorb 44.4 ML TUBE TP SCH (17:00)
[2016-06-15 17:38] LABS: Basophils % 0.1 %; Hematocrit 28.6 % (37.5-50.1); Hemoglobin 9.6 g/dL (12.9-16.9); Immature Granulocytes % 1.6 % (0-4); Lymphocytes # 0.1 K/mcL (0.6-4.6); Lymphocytes % 0.7 %; Mean Corpuscular HGB Conc 33.6 g/dL (31.6-35.5); Mean Corpuscular Hemoglobin 31.4 pg (28.0-33.3); Mean Corpuscular Volume 93.5 fL (83.0-100.0); Mean Platelet Volume 11.7 fL (9.4-12.4); Monocytes # 0.5 K/mcL (0.0-1.3); Monocytes % 2.4 %; Nucleated Red Blood Cells 0.1 /100 WBC (0); Red Blood Count 3.06 M/mcL (4.19-5.50); Red Cell Distribution Width 16.5 % (11.5-14.5); Segmented Neutrophils % 95.2 %
[2016-06-15 17:39] LABS: Platelet Count 41 K/mcL (140-400)
[2016-06-15 17:53] LABS: BUN/Creatinine Ratio 77 (6-26); Blood Urea Nitrogen 84 mg/dL (8-26); Calcium 7.5 mg/dL (8.6-10.8); Carbon Dioxide 23 mEq/L (19-29); Chloride 113 mEq/L (98-109); Glucose 163 mg/dL (70-99); Osmolality,Calculated 325 (280-300); Potassium 3.7 mEq/L (3.5-4.5); Sodium 143 mEq/L (136-145); eGFR For African Americans > 60 (> 60); eGFR For Non-African Americans > 60 (> 60)
[2016-06-15 18:24] LABS: Hypochromasia Present (Not Present); Platelet Estimate Marked Decrease (Normal); Rouleaux Present (Not Present)
[2016-06-16] MEDS: GuaiFENesin Liq 200 MG/10 ML UDC PO SCH ×5 (00:01→17:34)
[2016-06-16] MEDS: methylPREDNISolone 125 MG/2 ML VIAL IVP SCH ×2 (00:02→09:53)
[2016-06-16] MEDS: Ipratropium/Albuterol Neb 3 ML IH SCH ×6 (03:27→23:19)
[2016-06-16] MEDS: Acetylcysteine 10% 2 ML INHSOL IH SCH ×7 (03:33→23:19)
[2016-06-16] MEDS: Pantoprazole 40 MG VIAL IVP SCH ×2 (06:34→17:34)
[2016-06-16 07:45] LABS: Basophils % 0.1 %; Hemoglobin 9.3 g/dL (12.9-16.9)
[2016-06-16 07:47] LABS: Hematocrit 28.5 % (37.5-50.1); Immature Granulocytes % 1.6 % (0-4); Immature Platelets 4.7 % (1.1-6.1); Lymphocytes # 0.1 K/mcL (0.6-4.6); Lymphocytes % 0.8 %; Mean Corpuscular HGB Conc 32.6 g/dL (31.6-35.5); Mean Corpuscular Hemoglobin 30.2 pg (28.0-33.3); Mean Corpuscular Volume 92.5 fL (83.0-100.0); Mean Platelet Volume 11.5 fL (9.4-12.4); Monocytes # 0.4 K/mcL (0.0-1.3); Monocytes % 2.3 %; Neutrophils # 15.6 K/mcL (1.6-8.9); Red Blood Count 3.08 M/mcL (4.19-5.50); Red Cell Distribution Width 16.4 % (11.5-14.5); Segmented Neutrophils % 95.2 %
[2016-06-16 08:02] LABS: Alanine Aminotransferase 31 Units/L (0-55); Albumin 2.5 g/dL (3.5-5.0); Albumin/Globulin Ratio 1.5 (1.1-2.2); Alkaline Phosphatase 53 Units/L (38-126); Aspartate Amino Transferase 33 Units/L (5-34); BUN/Creatinine Ratio 75 (6-26); Bilirubin,Total 0.8 mg/dL (0.2-1.2); Blood Urea Nitrogen 83 mg/dL (8-26); Calcium 7.9 mg/dL (8.6-10.8); Carbon Dioxide 24 mEq/L (19-29); Chloride 112 mEq/L (98-109); Globulin 1.7 g/dL (2.4-3.5); Glucose 167 mg/dL (70-99); Osmolality,Calculated 329 (280-300); Potassium 3.7 mEq/L (3.5-4.5); Sodium 145 mEq/L (136-145); Total Protein 4.2 g/dL (6.0-8.3); eGFR For African Americans > 60 (> 60); eGFR For Non-African Americans > 60 (> 60)
[2016-06-16 08:28] LABS: Platelet Count 37 K/mcL (140-400)
[2016-06-16 08:35] LABS: Platelet Estimate Marked Decrease (Normal)
--- NOTE | 2016-06-16 09:02 | Event Note ---
Date of Encounter: 06/16/16 Time of Encounter: 09:00 Nephrology Chart Review: His renal function is very well controlled and the azotemia is more indicative of steroids and the GIB. Will sign-off at this point, but please feel free to contact/re-consult [facility]. Thank you.
[2016-06-16] MEDS: Diltiazem CD (24hr) 180 MG CAPSULE PO SCH ×2 (09:53→21:34)
[2016-06-16] MEDS: Nystatin SUSP 5 ML UD.LIQ PO SCH ×4 (09:53→21:49)
[2016-06-16] MEDS: Aspirin Enteric Coated 81 MG Tablet PO SCH (09:53)
[2016-06-16] MEDS: Insulin LISPRO 300 UNITS/3 ML VIAL SQ SCH ×4 (09:53→21:38)
[2016-06-16] MEDS ORDERED: *HR* Etomidate 20 MG/10 ML AMPUL IVP ONE (12:24)
[2016-06-16] MEDS ORDERED: *HR* Propofol 200 MG/20 ML VIAL IVP ONE (12:26)
--- NOTE | 2016-06-16 13:15 | Anesthesia Evaluation PreOp ---
Date of Encounter: 06/16/16 Time of Encounter: 13:12 - Past History Planned Operation: EGD Cardiac History: NH, CHF, HTN (maintained on Metoprolol, Bumex), Hyperlipidemia , Arrhythmia (Paroxysmal AFib w/RVR maintained on Cardizem & Metoprolol. Short runs of NSVT this hospitalization. Pt declines Warfarin, Eliquis), Cardiac Surgery (BioProsthetic Aortic Valvel replacement), Cardiac Stent (remote PCI - maintained on ASA, Plavix), Other (ECHO 06/05/2016 - LVEF 40-45%, segmental LV systolid cysfx, Atypical septal motion c/w post-op status, SEVERELY dilated LA, BioProsthetic Aortic Valve, Moderated Aortic Regurg. NO evidence of PulmHtn. 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: Other (Anxiety maintained on Valium) Other Medical History: GERD ( Hx GIB/Melena s/p 3 uPRBCs), Other (Epistaxis maintained w/ Nosepacking) Anesthesia History: Past Anesthesia (Appy, CEA, Aortic Valve replacement) Alcohol Use: heavy (6pk/beer daily), recent Drug use: none Medications and Allergies Albuterol Neb [Proventil Neb] 2.5 mg IH Q6HR 04/13/15 [History] Albuterol Sulfate [Proair Respiclick] 2 puff IH Q4H PRN 04/13/15 [History] Alendronate Sodium [Fosamax] 35 mg PO QWEEK 04/13/15 [History] Aspirin [Adult Low Dose Aspirin EC] 81 mg PO DAILY 04/13/15 [History] Atorvastatin [Lipitor] 40 mg PO HS 04/13/15 [History] Bumetanide [Bumex] 1 mg PO BID 04/13/15 [History] Cinnamon Bark [Cinnamon] 1,000 mg PO DAILY 04/13/15 [History] Clopidogrel [Plavix] 75 mg PO DAILY 04/13/15 [History] Fluticasone/Salmeterol [Advair 500-50 Diskus] 1 each IH BID 04/13/15 [History] Garlic 1,000 mg PO BID 04/13/15 [History] Ipratropium [ATROVENT Inhaler] 2 puff IH Q6HR PRN 04/13/15 [History] Loratadine [Claritin] 10 mg PO DAILY 04/13/15 [History] Metoprolol [Lopressor] 50 mg PO BID 04/13/15 [History] Omeprazole [PriLOSEC] 20 mg PO DAILY 04/13/15 [History] Roflumilast [Daliresp] 500 mcg PO DAILY 04/13/15 [History] [place] Oil/[place]-3 Fatty Acids [Fish Oil 500 mg Softgel] 1 each PO BID 04/13/15 [History] Vitamin B Complex [B Complex] 1 each PO DAILY 04/13/15 [History] Vitamin E (Dl,Tocopheryl Acet) [Vitamin E] 400 unit PO DAILY 04/13/15 [History] Diazepam [Valium] 2 mg PO HS 05/29/16 [History] Levocetirizine Dihydrochloride [Xyzal] 5 mg PO DAILY 05/29/16 [History] PredniSONE [PredniSONE] 5 mg PO DAILY 05/29/16 [History] Allergies diazoxide Adverse Reaction (Verified 10/23/14 11:39) Rash furosemide [From Lasix] Adverse Reaction (Verified 10/23/14 11:39) Rash montelukast Adverse Reaction (Verified 10/23/14 11:39) See Comments Pneumococcal Vaccine Adverse Reaction (Verified 10/23/14 11:39) Rash - Meds/Allergy Pre-op Review Medications Reviewed: Yes Allergies Reviewed: Yes Beta Blockers on Current Med List: Yes (Metoprolol) If Beta Blockers taken, Date/Time (Last Dose taken): 06/16/2016 @ 953 Anesthesia Results - Labs 06/16/16 06:42 06/16/16 06:42 Laboratory Tests 06/07/16 06/11/16 06/15/16 06:41 00:38 16:24 PT 15.3 H INR 1.4 APTT 25.2 L Sodium Potassium Chloride Carbon Dioxide BUN Creatinine Est GFR (Non-Af Amer) Glucose POC Glucose 205 H B-Natriuretic Peptide 479 H 06/16/16 06:42 PT INR APTT Sodium 145 Potassium 3.7 Chloride 112 H Carbon Dioxide 24 BUN 83 H Creatinine 1.11 Est GFR (Non-Af Amer) > 60 Glucose 167 H POC Glucose B-Natriuretic Peptide Laboratory Results Impressions KUB X-Ray 05/29/16 20:47 IMPRESSION: Enteric tube tip in the gastric fundus with the side-port remaining in the region of the gastroesophageal junction. Recommend further advancement prior to use. D/ / Saud Castellanos MD / Saud Castellanos MD Interpreting Provider: Saud Castellanos MD Chest X-Ray 05/30/16 07:57 IMPRESSION: 1. No new focal consolidation or significant volume loss to suggest mucous plugging. 2. Stable small right pleural effusion. D/ / Frankie Dias MD / Frankie Dias MD Interpreting Provider: Frankie Dias MD Chest CT 06/04/16 15:57 IMPRESSION: No acute cardiopulmonary disease is identified. D/ / Hao Dave MD / Hao Dave MD Interpreting Provider: Hao Dave MD Retroperitoneum Ultrasound 06/06/16 12:30 IMPRESSION: 1. Two simple right renal cysts. The kidneys are otherwise normal bilaterally, without evidence of a renal calculus or hydronephrosis. 2. Normal appearance of the urinary bladder. The patient was unable to void for the study. 3. Mild prostatomegaly. D/ / 06/06/2016 16:00:37 Zay Rowe MD / camacho Interpreting Provider: Zay Rowe MD Videofluoroscopic Swallow 06/11/16 00:01 IMPRESSION: Swallowing mechanism grossly within normal limits without evidence of aspiration. Please see separate speech pathology report for full discussion of findings and recommendations. D/ / Joceline Plata MD / Joceline Plata MD Interpreting Provider: Joceline Plata MD - Imaging EKG: image reviewed (131bpm AFib w/RVR, nonspecific ST-Twave abnormality) Anesthesia Exam Vital Signs Temp Pulse Resp BP Pulse Ox 06/16/16 11:52 16 97 06/16/16 11:32 97.7 F 85 15 116/56 97 06/16/16 08:53 16 97 06/16/16 07:12 97.7 F 86 16 117/56 92 06/16/16 03:29 20 100 06/16/16 03:28 98.1 F 73 20 130/63 100 06/15/16 23:21 22 100 06/15/16 20:57 97.6 F 92 24 130/65 94 06/15/16 19:30 22 91 06/15/16 15:53 18 96 06/15/16 15:10 97.6 F 78 19 130/72 98 Intake and Output 06/15/16 06/16/16 06/16/16 23:59 07:59 15:59 Output Total 600 / 600 400 / 400 Balance -600 / -600 -400 / -400 Output: Urine 600 / 600 400 / 400 Other: Weight 84.7 kg Blood Glucose* 248 214 202 Patient Weight 06/16/16 23:59 Weight 84.7 kg - HEENT Pupil (Motor): Pupils equal, EOMI Mallampati: III Teeth: Poor dentition Oral Opening: Greater than 3 - MOTION PICTURE CAMERA OPERATOR LOC: Oriented MOTION PICTURE CAMERA OPERATOR Motor: Normal RUE, Normal LUE, Normal RLE, Normal LLE, Normal Face MOTION PICTURE CAMERA OPERATOR Sensory: Normal: RUE, LUE, RLE, LLE, Face - Cardiac Rhythm: Regular Murmur: None - Pulmonary Breath Sounds: right Rales, bilateral Clear (Diminished R>>L, with crackles and rales) Respiratory Effort: Symmetrical Anesthesia Assess/Plan ASA Score: 4 (Terminal COPD, CAD, CHF, AFib w/RVR, GIB, Anxiety/Depression, EtOHism) Modified [place] Scale for Level of Consciousness: Cooperative, oriented, and tranquil Anesthetic Plan: MAC Monitoring Plan: Standard Monitors Recovery Plan: PACU Anes Supervising Prov Stmt: Pt seen/evaluated, R&B discussed, questions answered and consent obtained. Tom Washington MD
[2016-06-16] MEDS ORDERED: Simethicone 40 MG/0.6 ML MLS IR ONE (13:52)
[2016-06-16] MEDS ORDERED: Tetracaine/Benzocaine/Butamben 200MG/SPRAY (100SPY/BOT) MM ONE (13:52)
[2016-06-16] MEDS: 0.9 % Sodium Chloride 500 ML IVC SCH (13:53)
[2016-06-16] MEDS: MethylPREDNISolone 40 MG/ML VIAL IVP SCH (17:34)
--- NOTE | 2016-06-16 17:46 | Internal Med Progress Note ---
Date of Encounter: 06/16/16 Time of Encounter: 17:44 - Assessment and plan (1) GI bleed Current Visit: Yes Status: Acute Assessment and plan: Possibility of a GI bleed is extremely high. Gastroenterology was contacted and case discussed with the gastroenterology. Patient was transfused 2 units of blood (packed red blood cell). Yesterday patient's hemoglobin was 6.3, this morning patient's hemoglobin is 7.8. Patient is receiving intravenous 40 mg PPI 2 times a day. This patient has advanced terminal COPD, if this patient gets sedation for endoscopy, he will end up with intubation/ventilation/tracheostomy. I have spoken this possibility with the patient's son and patient himself at length. Patient would like to rethink about his decision when it time comes for a repeat endoscopy. At this point we will transfuse patient 1 more packed red blood cell. Gastroenterology/patient's family updated about this plan. Gastroenterology accepted and agreed with this plan. Patient's family accepted and agreed this plan above. 06/14/2016 Noted that patient still has dark, tarry stools. In the last 48 hours, altogether patient received 3 units of packed red blood cells. Patient appears to be more drowsy today. Family is at bedside. Family does understand that this is probably a terminal stage of his life. Palliative care is on the board. We will continue to keep you monitoring very closely. Will discuss with palliative care tomorrow for possible GIP ( general inpatient ) status if family agrees. 06/15/2106 Patient still has dark, tarry stools. awaiting for labs. Family and bedside. Discussion with palliative team. Per palliative team: Patient is still not a candidate for GIP bed. We will continue to treat patient. EGD tomorrow. 06/16/2016 Patient underwent EGD today. It was noted that patient has a severe esophagitis. Per gastroenterologic: No biopsies were taken. We will continue present management. Will follow the recommendations from gastroenterology. Qualifiers: GI bleed type/associated pathology: unspecified gastrointestinal hemorrhage type Qualified Code(s): K92.2 - Gastrointestinal hemorrhage, unspecified (2) COPD exacerbation Current Visit: No Status: Acute Assessment and plan: Will continue ABX : Cefepeme : day 5 Iv Steroids tapering dosages. BDAs 06/10/2016. Antibiotics: Cefepime:Day 6 IV steroids: Tapering dosages Bronchodilators. I had an long discussion with patient's son who is a power of criminal attorney. Patient's son claims that she understood the severity of his father's illness. Patient's son is not keen for intubation/ventilation and any heroic measures including CPR. We will get palliative care consult to reevaluate patient's condition. 06/11/2016. We had a long discussion with the patient and patient's family. Along with me high school social science teacher [employer] Mr Craig was present. Mr. Craig explained patient and his family at length regarding the possible options to have symptoms of placement. Patient had medical questions which were answered by me. Patient chose his CODE STATUS: DNR comfort care arrest. The patient will let us know tomorrow regarding the intubation. 06/12/2016. Patient new CODE STATUS now is: DNR comfort care arrest DNI. Patient is more alert and oriented as compared to yesterday. Patient's pain is much better and is under control. 06/13/2016. Continue present treatment. 06/14/2016 continue present management. (3) Acute kidney injury Current Visit: No Status: Acute Assessment and plan: Monitor BUN and creatinine. Avoid nephrotoxins. Steroid tapering dosages Nephrology on Board nad will follow recommendations. 06/10/2016. Renal function stabilized. Nephrology on the Board. We will follow their recommendation. 06/11/2016 Renal function stabilizes. Discussed with the nephrology. Possibility of a GI bleed was raised. Patient's respiratory status is too weak to go for any further intervention. All this above discussed with the patient. (4) Very severe chronic obstructive pulmonary disease Current Visit: No Status: Chronic Assessment and plan: will talk to family and patient to consider palliative care re evaluation again 06/10/2016. Spoken to patient's son. Please see above. (5) Atrial fibrillation with RVR Current Visit: Yes Status: Acute Assessment and plan: Atrial fibrillation with RVR, better rate control now wall with metoprolol and oral diltiazem. Appreciate cardiology recs. Started on Eliquis by cardiology. 06/13/2016. Elliquis is on hold for now - Subjective Interval history: seen and examined no new issues patient is complaining of occasional 06/10/2016. Patient seen and examined. Patient is little drowsy and answers to questions after 1 or 2 recall. Patient's son is at bedside. Patient has occasional shortness of breath, cough and dizziness. 06/11/2016. Patient seen and examined. Patient is alert and oriented. Patient's family at bedside. Patient is complaining of shortness of breath. 06/12/2016 Patient seen and examined. Chart reviewed. Patient is alert and oriented. Patient's family is at bedside. 06/13/2016 Patient seen and examined. Chart reviewed. Patient complains of dark, tarry stools. Patient's son is at bedside. 06/14/2016 Patient seen and examined. Chart reviewed. Patient appears to be more confused as compared to yesterday Patient's son is at bedside. Patient does not have any complaints at this point. Patient's son does understand that this is a terminal stage of his father's life. Noted at that patient's hemoglobin is stable. He received 1 packed red blood cells transfusion yesterday 06/15/2016 seen and examined. patient is alert and oriented. labs pending. seen by GI and noted that patient has EGD tomorrow 06/16/2016 Seen and examined. Chart reviewed. Patient is complaining of dysphagia Hb Stable denies any further bleeding. - Constitutional Vitals: Temp Pulse Resp BP Pulse Ox 97.3 F L 94 16 111/67 96 06/16/16 15:19 06/16/16 15:19 06/16/16 15:19 06/16/16 15:19 06/16/16 15:19 General appearance: Present: A&O X 2, mild distress, pleasant, answers questions appropriately - Head Head exam: Present: atraumatic, normocephalic - Eye Eye exam: Present: PERRL, conjuntiva pink, sclera anicteric Pupils: Present: PERRL - Neck Neck exam general surgery: Present: supple, trachea midline. Absent: lymphadenopathy - Respiratory Respiratory exam: Present: CTAB. Absent: accessory muscle use, rales, rhonchi, wheezes - Cardiovascular Cardiovascular exam: Present: RRR, +S1, +S2. Absent: diastolic murmur, gallop, rubs, systolic murmur - GI/Abdominal GI/Abdominal exam: Present: normal bowel sounds, soft, no peritoneal signs. Absent: distended, tenderness - Extremities Exam Extremities exam: Present: warm, radial pulses palpable and symetrical. Absent : calf tenderness, cyanotic, pedal edema - Neurological Exam Neurological exam: Present: CN II-XII intact, oriented X3, no focal deficits. Absent: pronater drift, facial droop, speech deficit - Skin Skin exam: Present: dry, intact Internal Medicine: Result - Labs CBC & Chem 7: 06/16/16 06:42 06/16/16 06:42 Labs: Short CBC 06/15/16 06/16/16 Range/Units 17:16 06:42 WBC 16.4 H (4.3-11.1) K/mcL Hgb 9.3 L (12.9-16.9) g/dL Hct 28.5 L (37.5-50.1) % Plt Count 37 L (140-400) K/mcL Neutrophils # 19.0 H 15.6 H (1.6-8.9) K/mcL BMP 06/15/16 06/16/16 17:16 06:42 Sodium 143 145 Potassium 3.7 3.7 Chloride 113 H 112 H Carbon Dioxide 23 24 BUN 84 H 83 H Creatinine 1.09 1.11 Glucose 163 H 167 H Calcium 7.5 L 7.9 L Liver Function 06/16/16 Range/Units 06:42 Total Bilirubin 0.8 (0.2-1.2) mg/dL AST 33 (5-34) Units/L ALT 31 (0-55) Units/L Alkaline Phosphatase 53 (38-126) Units/L Albumin 2.5 L (3.5-5.0) g/dL - ABG Interpretation ABG results: ABG ABG pH TNP 05/31/16 03:59 ABG pCO2 TNP 05/31/16 03:59 ABG pO2 TNP 05/31/16 03:59 ABG O2 Saturation TNP 05/31/16 03:59 PT/INR, D-dimer PT 15.3 Seconds (9.4-12.1) H 06/11/16 00:38 Consult Discharge Plan - Plan Referrals: Saud Potter MD [Primary Care Provider] - 06/19/16 3:00 pm Sudha Benton DO [Partnered Physician] - 06/23/16 1:10 pm
[2016-06-17] MEDS: GuaiFENesin Liq 200 MG/10 ML UDC PO SCH ×5 (00:22→20:07)
[2016-06-17] MEDS: Silvasorb 44.4 ML TUBE TP SCH ×2 (00:23→09:05)
[2016-06-17] MEDS: 0.9 % Sodium Chloride 500 ML IVC SCH (00:23)
[2016-06-17] MEDS: Acetylcysteine 10% 2 ML INHSOL IH SCH ×6 (04:52→23:52)
[2016-06-17] MEDS: Ipratropium/Albuterol Neb 3 ML IH SCH ×6 (04:52→23:52)
[2016-06-17] MEDS: Pantoprazole 40 MG VIAL IVP SCH ×2 (05:52→17:08)
[2016-06-17] MEDS: MethylPREDNISolone 40 MG/ML VIAL IVP SCH ×2 (05:52→17:08)
[2016-06-17 06:15] LABS: Hemoglobin 8.9 g/dL (12.9-16.9); Immature Granulocytes % 1.1 % (0-4); Red Cell Distribution Width 16.5 % (11.5-14.5)
[2016-06-17 06:16] LABS: Basophils % 0.1 %; Hematocrit 26.4 % (37.5-50.1); Lymphocytes # 0.1 K/mcL (0.6-4.6); Lymphocytes % 0.6 %; Mean Corpuscular HGB Conc 33.7 g/dL (31.6-35.5); Mean Corpuscular Hemoglobin 31.8 pg (28.0-33.3); Mean Corpuscular Volume 94.3 fL (83.0-100.0); Mean Platelet Volume 12.1 fL (9.4-12.4); Monocytes # 0.6 K/mcL (0.0-1.3); Monocytes % 2.8 %; Segmented Neutrophils % 95.4 %
[2016-06-17 06:29] LABS: Alanine Aminotransferase 31 Units/L (0-55); Albumin 2.3 g/dL (3.5-5.0); Albumin/Globulin Ratio 1.2 (1.1-2.2); Alkaline Phosphatase 52 Units/L (38-126); Aspartate Amino Transferase 32 Units/L (5-34); BUN/Creatinine Ratio 66 (6-26); Bilirubin,Total 0.6 mg/dL (0.2-1.2); Blood Urea Nitrogen 79 mg/dL (8-26); Calcium 7.6 mg/dL (8.6-10.8); Carbon Dioxide 23 mEq/L (19-29); Chloride 110 mEq/L (98-109); Globulin 1.9 g/dL (2.4-3.5); Glucose 176 mg/dL (70-99); Osmolality,Calculated 326 (280-300); Potassium 3.8 mEq/L (3.5-4.5); Sodium 144 mEq/L (136-145); Total Protein 4.2 g/dL (6.0-8.3); eGFR For African Americans > 60 (> 60); eGFR For Non-African Americans 60 (> 60)
[2016-06-17 07:44] LABS: Platelet Count 37 K/mcL (140-400)
[2016-06-17 07:53] LABS: Platelet Estimate Decreased (Normal)
[2016-06-17] MEDS: Diltiazem CD (24hr) 180 MG CAPSULE PO SCH ×2 (09:04→22:05)
[2016-06-17] MEDS: Insulin LISPRO 300 UNITS/3 ML VIAL SQ SCH ×4 (09:04→22:07)
[2016-06-17] MEDS: Nystatin SUSP 5 ML UD.LIQ PO SCH ×4 (09:04→22:05)
[2016-06-17] MEDS: Aspirin Enteric Coated 81 MG Tablet PO SCH (09:04)
--- NOTE | 2016-06-17 14:21 | Internal Med Progress Note ---
Date of Encounter: 06/17/16 Time of Encounter: 14:18 - Assessment and plan (1) GI bleed Current Visit: Yes Status: Acute Assessment and plan: Possibility of a GI bleed is extremely high. Gastroenterology was contacted and case discussed with the gastroenterology. Patient was transfused 2 units of blood (packed red blood cell). Yesterday patient's hemoglobin was 6.3, this morning patient's hemoglobin is 7.8. Patient is receiving intravenous 40 mg PPI 2 times a day. This patient has advanced terminal COPD, if this patient gets sedation for endoscopy, he will end up with intubation/ventilation/tracheostomy. I have spoken this possibility with the patient's son and patient himself at length. Patient would like to rethink about his decision when it time comes for a repeat endoscopy. At this point we will transfuse patient 1 more packed red blood cell. Gastroenterology/patient's family updated about this plan. Gastroenterology accepted and agreed with this plan. Patient's family accepted and agreed this plan above. 06/14/2016 Noted that patient still has dark, tarry stools. In the last 48 hours, altogether patient received 3 units of packed red blood cells. Patient appears to be more drowsy today. Family is at bedside. Family does understand that this is probably a terminal stage of his life. Palliative care is on the board. We will continue to keep you monitoring very closely. Will discuss with palliative care tomorrow for possible GIP ( general inpatient ) status if family agrees. 06/15/2106 Patient still has dark, tarry stools. awaiting for labs. Family and bedside. Discussion with palliative team. Per palliative team: Patient is still not a candidate for GIP bed. We will continue to treat patient. EGD tomorrow. 06/16/2016 Patient underwent EGD today. It was noted that patient has a severe esophagitis. Per gastroenterologic: No biopsies were taken. We will continue present management. Will follow the recommendations from gastroenterology. 06/17/2016. We will continue IV PPI twice a day. Hemoglobin is stable for now. We will keep close monitoring regarding his daily labs. No active GI bleeding noted. Qualifiers: GI bleed type/associated pathology: unspecified gastrointestinal hemorrhage type Qualified Code(s): K92.2 - Gastrointestinal hemorrhage, unspecified (2) COPD exacerbation Current Visit: No Status: Acute Assessment and plan: Will continue ABX : Cefepeme : day 5 Iv Steroids tapering dosages. BDAs 06/10/2016. Antibiotics: Cefepime:Day 6 IV steroids: Tapering dosages Bronchodilators. I had an long discussion with patient's son who is a power of attorney recruiter. Patient's son claims that she understood the severity of his father's illness. Patient's son is not keen for intubation/ventilation and any heroic measures including CPR. We will get palliative care consult to reevaluate patient's condition. 06/11/2016. We had a long discussion with the patient and patient's family. Along with me director of social work MACHINE SETTER Mr Craig was present. Mr. Craig explained patient and his family at length regarding the possible options to have symptoms of placement. Patient had medical questions which were answered by me. Patient chose his CODE STATUS: DNR comfort care arrest. The patient will let us know tomorrow regarding the intubation. 06/12/2016. Patient new CODE STATUS now is: DNR comfort care arrest DNI. Patient is more alert and oriented as compared to yesterday. Patient's pain is much better and is under control. 06/13/2016. Continue present treatment. 06/14/2016 continue present management. (3) Acute kidney injury Current Visit: No Status: Acute Assessment and plan: Monitor BUN and creatinine. Avoid nephrotoxins. Steroid tapering dosages Nephrology on Board nad will follow recommendations. 06/10/2016. Renal function stabilized. Nephrology on the Board. We will follow their recommendation. 06/11/2016 Renal function stabilizes. Discussed with the nephrology. Possibility of a GI bleed was raised. Patient's respiratory status is too weak to go for any further intervention. All this above discussed with the patient. 06/17/2016. Creatinine back to normal. BUN trending down. Noted that nephrology has signed off. (4) Very severe chronic obstructive pulmonary disease Current Visit: No Status: Chronic Assessment and plan: will talk to family and patient to consider palliative care re evaluation again 06/10/2016. Spoken to patient's son. Please see above. (5) Atrial fibrillation with RVR Current Visit: Yes Status: Acute Assessment and plan: Atrial fibrillation with RVR, better rate control now wall with metoprolol and oral diltiazem. Appreciate cardiology recs. Started on Eliquis by cardiology. 06/13/2016. Elliquis is on hold for now - Subjective Interval history: seen and examined no new issues patient is complaining of occasional 06/10/2016. Patient seen and examined. Patient is little drowsy and answers to questions after 1 or 2 recall. Patient's son is at bedside. Patient has occasional shortness of breath, cough and dizziness. 06/11/2016. Patient seen and examined. Patient is alert and oriented. Patient's family at bedside. Patient is complaining of shortness of breath. 06/12/2016 Patient seen and examined. Chart reviewed. Patient is alert and oriented. Patient's family is at bedside. 06/13/2016 Patient seen and examined. Chart reviewed. Patient complains of dark, tarry stools. Patient's son is at bedside. 06/14/2016 Patient seen and examined. Chart reviewed. Patient appears to be more confused as compared to yesterday Patient's son is at bedside. Patient does not have any complaints at this point. Patient's son does understand that this is a terminal stage of his father's life. Noted at that patient's hemoglobin is stable. He received 1 packed red blood cells transfusion yesterday 06/15/2016 seen and examined. patient is alert and oriented. labs pending. seen by GI and noted that patient has EGD tomorrow 06/16/2016 Seen and examined. Chart reviewed. Patient is complaining of dysphagia Hb Stable denies any further bleeding. 06/17/2016 seen and examined. Still has shortness of breath. Unable to speak complete sentences. Complaints that he is not able to walk few steps. - Constitutional Vitals: Temp Pulse Resp BP Pulse Ox 98.4 F 94 16 118/72 100 06/17/16 11:54 06/17/16 11:54 06/17/16 11:54 06/17/16 11:54 06/17/16 11:54 General appearance: Present: A&O X 2, mild distress, pleasant, answers questions appropriately - Head Head exam: Present: atraumatic, normocephalic - Eye Eye exam: Present: PERRL, conjuntiva pink, sclera anicteric Pupils: Present: PERRL - Neck Neck exam general surgery: Present: supple, trachea midline. Absent: lymphadenopathy - Respiratory Respiratory exam: Present: CTAB. Absent: accessory muscle use, rales, rhonchi, wheezes - Cardiovascular Cardiovascular exam: Present: RRR, +S1, +S2. Absent: diastolic murmur, gallop, rubs, systolic murmur - GI/Abdominal GI/Abdominal exam: Present: normal bowel sounds, soft, no peritoneal signs. Absent: distended, tenderness - Extremities Exam Extremities exam: Present: warm, radial pulses palpable and symetrical. Absent : calf tenderness, cyanotic, pedal edema - Neurological Exam Neurological exam: Present: CN II-XII intact, oriented X3, no focal deficits. Absent: pronater drift, facial droop, speech deficit - Skin Skin exam: Present: dry, intact Internal Medicine: Result - Labs CBC & Chem 7: 06/17/16 05:10 06/17/16 05:10 Labs: Short CBC 06/17/16 Range/Units 05:10 WBC 19.9 H (4.3-11.1) K/mcL Hgb 8.9 L (12.9-16.9) g/dL Hct 26.4 L (37.5-50.1) % Plt Count 37 L (140-400) K/mcL Neutrophils # 19.0 H (1.6-8.9) K/mcL BMP 06/17/16 05:10 Sodium 144 Potassium 3.8 Chloride 110 H Carbon Dioxide 23 BUN 79 H Creatinine 1.20 Glucose 176 H Calcium 7.6 L Liver Function 06/17/16 Range/Units 05:10 Total Bilirubin 0.6 (0.2-1.2) mg/dL AST 32 (5-34) Units/L ALT 31 (0-55) Units/L Alkaline Phosphatase 52 (38-126) Units/L Albumin 2.3 L (3.5-5.0) g/dL - ABG Interpretation ABG results: ABG ABG pH TNP 05/31/16 03:59 ABG pCO2 TNP 05/31/16 03:59 ABG pO2 TNP 05/31/16 03:59 ABG O2 Saturation TNP 05/31/16 03:59 PT/INR, D-dimer PT 15.3 Seconds (9.4-12.1) H 06/11/16 00:38 Consult Discharge Plan - Plan Referrals: Saud Potter MD [Primary Care Provider] - 06/19/16 3:00 pm Sudha Benton DO [Partnered Physician] - 06/23/16 1:10 pm
--- NOTE | 2016-06-17 14:50 | Event Note ---
Date of Encounter: 06/17/16 Time of Encounter: 14:00 Patient sitting up in bed, talking on phone with brother. Visitor in room. Patient denies any complaints, states breathing fairly well today. Hgb stable, slight decrease from yesterday. EGD with esophagitis. He has been participating with therapy. Still agreeable for [place] swing bed upon discharge. Patient has not been open to discuss longer term plan with his chronic lung disease and believes he will get better enough to go home. Palliative following from distance at this point.
[2016-06-18] MEDS: GuaiFENesin Liq 200 MG/10 ML UDC PO SCH ×3 (00:30→12:26)
[2016-06-18] MEDS: Acetylcysteine 10% 2 ML INHSOL IH SCH ×4 (03:50→15:29)
[2016-06-18] MEDS: Ipratropium/Albuterol Neb 3 ML IH SCH ×4 (03:50→15:29)
[2016-06-18] MEDS: Pantoprazole 40 MG VIAL IVP SCH (05:22)
[2016-06-18] MEDS: MethylPREDNISolone 40 MG/ML VIAL IVP SCH (05:22)
[2016-06-18 05:45] LABS: Eosinophils % 0.1 %; Lymphocytes % 0.7 %; Mean Corpuscular Volume 92.1 fL (83.0-100.0)
[2016-06-18 05:48] LABS: Basophils % 0.2 %; Hematocrit 25.7 % (37.5-50.1); Hemoglobin 8.6 g/dL (12.9-16.9); Immature Granulocytes % 4.7 % (0-4); Immature Platelets 5.6 % (1.1-6.1); Lymphocytes # 0.1 K/mcL (0.6-4.6); Mean Corpuscular HGB Conc 33.5 g/dL (31.6-35.5); Mean Corpuscular Hemoglobin 30.8 pg (28.0-33.3); Mean Platelet Volume 11.7 fL (9.4-12.4); Monocytes # 0.4 K/mcL (0.0-1.3); Monocytes % 2.5 %; Neutrophils # 13.9 K/mcL (1.6-8.9); Nucleated Red Blood Cells 0.2 /100 WBC (0); Red Blood Count 2.79 M/mcL (4.19-5.50); Red Cell Distribution Width 16.4 % (11.5-14.5); Segmented Neutrophils % 91.8 %
[2016-06-18 06:16] LABS: Platelet Count 36 K/mcL (140-400)
[2016-06-18 06:42] LABS: Alanine Aminotransferase 33 Units/L (0-55); Albumin 2.1 g/dL (3.5-5.0); Albumin/Globulin Ratio 1.2 (1.1-2.2); Alkaline Phosphatase 57 Units/L (38-126); Aspartate Amino Transferase 37 Units/L (5-34); BUN/Creatinine Ratio 64 (6-26); Bilirubin,Total 0.6 mg/dL (0.2-1.2); Blood Urea Nitrogen 82 mg/dL (8-26); Calcium 7.5 mg/dL (8.6-10.8); Carbon Dioxide 20 mEq/L (19-29); Chloride 111 mEq/L (98-109); Globulin 1.8 g/dL (2.4-3.5); Glucose 199 mg/dL (70-99); Osmolality,Calculated 324 (280-300); Potassium 4.1 mEq/L (3.5-4.5); Sodium 142 mEq/L (136-145); Total Protein 3.9 g/dL (6.0-8.3); eGFR For African Americans > 60 (> 60); eGFR For Non-African Americans 55 (> 60)
[2016-06-18 06:56] LABS: Platelet Estimate Marked Decrease (Normal); Toxic Granulation Present (Not Present)
[2016-06-18] MEDS ORDERED: Loratadine 10 MG TABLET PO SCH (09:00)
[2016-06-18] MEDS: Diltiazem CD (24hr) 180 MG CAPSULE PO SCH (09:43)
[2016-06-18] MEDS: Aspirin Enteric Coated 81 MG Tablet PO SCH (09:43)
[2016-06-18] MEDS: Nystatin SUSP 5 ML UD.LIQ PO SCH ×2 (09:43→14:40)
[2016-06-18] MEDS: Insulin LISPRO 300 UNITS/3 ML VIAL SQ SCH ×2 (09:44→12:25)
--- NOTE | 2016-06-18 11:04 | Discharge Summary ---
Date of Encounter: 06/29/16 Time of Encounter: 10:59 - Discharge Diagnosis (1) GI bleed Priority: Primary Status: Acute Qualifiers: GI bleed type/associated pathology: unspecified gastrointestinal hemorrhage type Qualified Code(s): K92.2 - Gastrointestinal hemorrhage, unspecified (2) COPD exacerbation Priority: Primary Status: Deleted (3) Acute kidney injury Priority: Primary Status: Acute (4) Very severe chronic obstructive pulmonary disease Priority: Secondary Status: Chronic (5) Atrial fibrillation with RVR Priority: Secondary Status: Acute - Discharge Medications Prescriptions: Diazepam [Valium] 2 mg PO HS #7 tablet Diltiazem CD (24hr) [Cardizem CD] 180 mg PO BID #60 cap.er.24h Home Medications: Albuterol Sulfate [Proair Respiclick] 2 puff IH Q4H PRN 04/13/15 [History] Alendronate Sodium [Fosamax] 35 mg PO QWEEK 04/13/15 [History] Aspirin [Adult Low Dose Aspirin EC] 81 mg PO DAILY 04/13/15 [History] Atorvastatin [Lipitor] 40 mg PO HS 04/13/15 [History] Bumetanide [Bumex] 1 mg PO BID 04/13/15 [History] Cinnamon Bark [Cinnamon] 1,000 mg PO DAILY 04/13/15 [History] Clopidogrel [Plavix] 75 mg PO DAILY 04/13/15 [History] Fluticasone/Salmeterol [Advair 500-50 Diskus] 1 each IH BID 04/13/15 [History] Garlic 1,000 mg PO BID 04/13/15 [History] Ipratropium [ATROVENT Inhaler] 2 puff IH Q6HR PRN 04/13/15 [History] Loratadine [Claritin] 10 mg PO DAILY 04/13/15 [History] Metoprolol [Lopressor] 50 mg PO BID 04/13/15 [History] Omeprazole [PriLOSEC] 20 mg PO DAILY 04/13/15 [History] Roflumilast [Daliresp] 500 mcg PO DAILY 04/13/15 [History] [place] Oil/[place]-3 Fatty Acids [Fish Oil 500 mg Softgel] 1 each PO BID 04/13/15 [History] Vitamin B Complex [B Complex] 1 each PO DAILY 04/13/15 [History] Vitamin E (Dl,Tocopheryl Acet) [Vitamin E] 400 unit PO DAILY 04/13/15 [History] Levocetirizine Dihydrochloride [Xyzal] 5 mg PO DAILY 05/29/16 [History] PredniSONE 5 mg PO DAILY 05/29/16 [History] Diazepam [Valium] 2 mg PO HS #7 tablet 06/18/16 [Rx] Diltiazem CD (24hr) [Cardizem CD] 180 mg PO BID #60 cap.er.24h 06/18/16 [Rx] Allergies/Adverse Reactions: Allergies diazoxide Adverse Reaction (Verified 10/23/14 11:39) Rash furosemide [From Lasix] Adverse Reaction (Verified 10/23/14 11:39) Rash montelukast Adverse Reaction (Verified 10/23/14 11:39) See Comments Pneumococcal Vaccine Adverse Reaction (Verified 10/23/14 11:39) Rash Date of admission: 05/30/16 16:49 Primary care physician: Saud Potter MD Consults: 06/03/16 16:02 Consult to Cardiology [CONS] Routine Comment: Dr. Goff states is going to call cardio Consulting Provider: Card[facility] Reason for Consult: 26 beat run of V-Tach Call Completed: Yes 06/04/16 15:59 Consult to Palliative Care [CONS] Routine Comment: Consulting Provider: Palliative [facility] [place] 06/06/16 10:35 Consult to Nephrology [CONS] Routine Consulting Provider: Jasper Hoyos Reason for Consult: JB Time Notified: 10:36 Call Completed: Yes 06/07/16 19:29 Consult to Respiratory Therapy [CONS] Routine Reason for Consult: please provide flutter valve Call Completed: No 06/08/16 15:11 Consult to Wound Care [CONS] Routine Reason for Consult: Wound to bilateral heels Call Completed: No 06/08/16 15:13 Consult to Podiatry [CONS] Routine Consulting Provider: [facility] Reason for Consult: Overgrown, curving toe nails Call Completed: No 06/10/16 00:36 Consult to Speech Therapy [CONS] Urgent Comment: Evaluate, develop and implement POC Reason for Consult: Patient complained of weakness when swallowing Call Completed: No 06/10/16 14:02 Consult to Palliative Care [CONS] Routine Comment: reconsult regardng code status evaluation. Consulting Provider: [facility] 06/11/16 11:49 Consult to Occupational Therapy [CONS] Routine Comment: Evaluate, develop and implement POC Consult to Physical Therapy [CONS] Routine Comment: Evaluate, develop and implement POC 06/11/16 15:28 OT [Consult to Occupational Therapy] [CONS] Routine Comment: Evaluate, develop and implement POC PT [Consult to Physical Therapy] [CONS] Routine Comment: Evaluate, develop and implement POC 06/12/16 10:26 Consult to Gastroenterology [CONS] Routine Consulting Provider: Gastroenterology [facility] Reason for Consult: ?GI bleed Call Completed: Yes 06/13/16 18:12 Consult to Speech Therapy [CONS] Routine Comment: Evaluate, develop and implement POC Reason for Consult: Patient coughing chunks of food up when eating Call Completed: Yes Discharging clinician: Timothy Villareal - Patient Status Disposition: Transfer Inpatient Rehab Fac Condition: Serious Functional capacity at discharge: bed bound Overall status at discharge: patient is not back to baseline - Discharge Instructions Follow Up With: Saud Potter MD [Primary Care Provider] - 06/19/16 3:00 pm Sudha Benton DO [Partnered Physician] - 06/23/16 1:10 pm - Diet and Activity Activity: as per physical therapy Diet: diabetic diet Interval History: Patient was hospitalized to the emergency room for shortness of breath. Patient was evaluated in the emergency room for similar reason. At the time of examination in the emergency room it was noted that patient was in atrial fibrillation with rapid ventricular rate. Patient was tachypneic, tachycardic and hypoxic to. In the emergency room pulmonology was called an emergency bronchoscopy was done. Patient was placed on a ventilator and was transferred to intensive care unit. Hospital course: Patient was intubated, ventilated and successfully weaned off from the ventilation. Patient was transferred to the floor. Patient was on a treatment for his chronic obstructive pulmonary disease exacerbation that is antibiotics, steroids, bronchodilator and he was getting regular pulmonary toilet. Patient was responding to his COPD exacerbation treatment pretty well. 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 Noted that patient dropped his hemoglobin and his anticoagulation was stopped. Palliative care was concentrated. Patient changed his CODE STATUS. Physical therapy/observation therapy evaluated the patient and recommended him to be placed in a extended care facility/longterm facility. Patient was transferred to the facility for further management. Patient's family was at bedside. All the questions answered. At the time of discharge patient/his family does not have any questions, concerns, update and recommendations. - Time Spent with Patient Total time spent providing and/or coordinating discharge services: - Constitutional Vitals: Temp Pulse Resp BP Pulse Ox 97.7 F 81 18 126/47 100 06/18/16 07:03 06/18/16 07:03 06/18/16 07:32 06/18/16 07:03 06/18/16 07:32 General appearance: Present: A&O X 2, mild distress, pleasant, answers questions appropriately - Head Head exam: Present: atraumatic, normocephalic - Eye Eye exam: Present: PERRL, conjuntiva pink, sclera anicteric Pupils: Present: PERRL - Neck Neck exam general surgery: Present: supple, trachea midline. Absent: lymphadenopathy - Respiratory Respiratory exam: Present: CTAB. Absent: accessory muscle use, rales, rhonchi, wheezes - Cardiovascular Cardiovascular exam: Present: RRR, +S1, +S2. Absent: diastolic murmur, gallop, rubs, systolic murmur - GI/Abdominal GI/Abdominal exam: Present: normal bowel sounds, soft, no peritoneal signs. Absent: distended, tenderness - Extremities Exam Extremities exam: Present: warm, radial pulses palpable and symetrical. Absent : calf tenderness, cyanotic, pedal edema - Neurological Exam Neurological exam: Present: CN II-XII intact, oriented X3, no focal deficits. Absent: pronater drift, facial droop, speech deficit - Skin Skin exam: Present: dry, intact
--- NOTE | 2016-06-18 11:06 | Physician Discharge Referral ---
ExtendedCare Referral Info Transfer To: [facility] - Diagnosis (1) GI bleed Priority: Primary Status: Acute (2) COPD exacerbation Priority: Primary Status: Acute (3) Acute kidney injury Priority: Primary Status: Acute (4) Very severe chronic obstructive pulmonary disease Priority: Secondary Status: Chronic (5) Atrial fibrillation with RVR Priority: Secondary Status: Acute - Transfer Medications Prescriptions: Diazepam [Valium] 2 mg PO HS #7 tablet Diltiazem CD (24hr) [Cardizem CD] 180 mg PO BID #60 cap.er.24h Home Medications: Albuterol Sulfate [Proair Respiclick] 2 puff IH Q4H PRN 04/13/15 [History] Alendronate Sodium [Fosamax] 35 mg PO QWEEK 04/13/15 [History] Aspirin [Adult Low Dose Aspirin EC] 81 mg PO DAILY 04/13/15 [History] Atorvastatin [Lipitor] 40 mg PO HS 04/13/15 [History] Bumetanide [Bumex] 1 mg PO BID 04/13/15 [History] Cinnamon Bark [Cinnamon] 1,000 mg PO DAILY 04/13/15 [History] Clopidogrel [Plavix] 75 mg PO DAILY 04/13/15 [History] Fluticasone/Salmeterol [Advair 500-50 Diskus] 1 each IH BID 04/13/15 [History] Garlic 1,000 mg PO BID 04/13/15 [History] Ipratropium [ATROVENT Inhaler] 2 puff IH Q6HR PRN 04/13/15 [History] Loratadine [Claritin] 10 mg PO DAILY 04/13/15 [History] Metoprolol [Lopressor] 50 mg PO BID 04/13/15 [History] Omeprazole [PriLOSEC] 20 mg PO DAILY 04/13/15 [History] Roflumilast [Daliresp] 500 mcg PO DAILY 04/13/15 [History] [place] Oil/[place]-3 Fatty Acids [Fish Oil 500 mg Softgel] 1 each PO BID 04/13/15 [History] Vitamin B Complex [B Complex] 1 each PO DAILY 04/13/15 [History] Vitamin E (Dl,Tocopheryl Acet) [Vitamin E] 400 unit PO DAILY 04/13/15 [History] Levocetirizine Dihydrochloride [Xyzal] 5 mg PO DAILY 05/29/16 [History] PredniSONE 5 mg PO DAILY 05/29/16 [History] Diazepam [Valium] 2 mg PO HS #7 tablet 06/18/16 [Rx] Diltiazem CD (24hr) [Cardizem CD] 180 mg PO BID #60 cap.er.24h 06/18/16 [Rx] Allergies/Adverse Reactions: Allergies diazoxide Adverse Reaction (Verified 10/23/14 11:39) Rash furosemide [From Lasix] Adverse Reaction (Verified 10/23/14 11:39) Rash montelukast Adverse Reaction (Verified 10/23/14 11:39) See Comments Pneumococcal Vaccine Adverse Reaction (Verified 10/23/14 11:39) Rash - Respiratory Orders Smoking Cessation: Smoking cessation has been advised. For more information, call the [place] Tobacco Quit Line at 2-837-YXAN-NOW. - Rehabiliation Orders Rehab Orders: Evaluation for Physical Therapy, Evaluation for Occupational Therapy, Evaluation for Speech Therapy (nurse evaluation) CERTIFICATION: I certify that the transfer of the above named patient to an Extended Care Facility is necessary for the continuing treatment of the diagnosis listed. The above information is true and accurate reflection of patient's current condition. Confidential - Redisclosure prohibited without a patient's written consent.
[2016-06-18] MEDS: Silvasorb 44.4 ML TUBE TP SCH (16:28)
[2016-06-18 21:11] VITALS: BP 115/89
== END 2016-06-18 17:00 | DRG 208 ==
LOC: EMEROO 13:18 → ICNU 13:18 → SUATTDRO 05-30 16:49 → 2NENU 05-31 19:01
PROVIDERS: ADMIT Internal Medicine; ATTEND Internal Medicine